=== PATIENT | male | born 1935 | race Caucasian/White ===

== ENCOUNTER 2018-02-20 10:45 | Emergency (ER) | payer MEDICARE ==
[2018-02-20] MEDS ORDERED: NA CHLORIDE 0.9% 1,000 ML ONE (11:57)
--- NOTE | 2018-02-20 12:17 | RAD REPORT ---
EXAM DESCRIPTION: RAD - Chest Single View - 02/20/2018 11:51 am CLINICAL HISTORY: COUGH Chest pain. COMPARISON: CHEST PA AND LAT 2 VIEW dated 02/06/2014; CHEST SINGLE VIEW dated 12/11/2013 FINDINGS: Portable technique limits examination quality. The lungs are grossly clear. The heart is normal in size. No displaced fractures.Dual lead pacer lisy ce noted. IMPRESSION: No acute intrathoracic process suspected.
--- NOTE | 2018-02-20 12:29 | RAD REPORT ---
EXAM DESCRIPTION: RAD - Tib Fib Left - 02/20/2018 11:51 am CLINICAL HISTORY: PAIN COMPARISON: No comparisons FINDINGS: No fracture or dislocation seen. Prominent posterior calcaneal spur.
--- NOTE | 2018-02-20 12:46 | RAD REPORT ---
EXAM DESCRIPTION: VAS - Extrem Venous W Compress Andrew - 02/20/2018 12:41 pm CLINICAL HISTORY: PAIN Bilateral leg edema and swelling. COMPARISON: EXT VENOUS UNI LTD dated 09/09/2015 TECHNIQUE: Real-time sonographic interrogation of the left and right lower extremity deep venous sys tems was performed. FINDINGS: Normal compressibility, flow augmentation, phasic flow and spontaneous flow is identified in both the left and right lower extremity deep venous systems. IMPRESSION: No sonographic evidence of left or right lower extremity deep venous thrombosis.
--- NOTE | 2018-02-20 12:46 | RAD REPORT ---
EXAM DESCRIPTION: VAS - Lower Extremity Arterial Bilat - 02/20/2018 12:41 pm CLINICAL HISTORY: PAIN Cold extremities. COMPARISON: No comparisons TECHNIQUE: Bilateral lower extremity arterial Doppler examination was performed with waveform tracin g and ankle brachial pressure measurements. FINDINGS: Symmetric brachial pressure measurements are noted. Triphasic waveforms are seen throughout both lower extremity arterial systems to the level of the samuel salis pedis arteries. No stenosis or occlusion. IMPRESSION: No evidence of significant peripheral vascular disease.
[2018-02-20 13:03] LABS: Absolute Lymphocytes (CBC) 2.7 K/uL (0.7-4.9); Absolute Monocytes 1.1 K/uL (0.1-1.3); Absolute Neutrophil 6.5 K/uL (1.8-8.0); Basophils % 0.4 % (0-1.3); Eosinophils % 2.7 % (0-4.4); Hematocrit 48.8 % (39.6-49.0); Lymphocytes % 25.5 % (15.3-44.8); MCH 29.9 pg (27.0-35.0); MCV 92.3 fL (80-100); MPV 10.4 fL (7.6-11.3); Monocytes % 10.1 % (3.3-12.3); RBC Red Blood Cell Count 5.28 M/uL (4.33-5.43)
[2018-02-20 13:10] LABS: Protime INR 1.04
[2018-02-20 13:29] LABS: ALT/SGPT 23 U/L (12-78); AST/SGOT 27 U/L (15-37); Albumin 3.9 g/dL (3.4-5.0); Alkaline Phosphatase 58 U/L (45-117); BUN Blood Urea Nitrogen 30 mg/dL (7-18); Bicarbonate 31 mmol/L (21-32); Bilirubin Direct < 0.1 mg/dL (0-0.2); Bilirubin Total 0.5 mg/dL (0.2-1.0); CKMB Creatine Kinase MB 1.9 ng/mL (0.3-3.6); Creatine Phosphokinase 101 U/L (39-308); Glucose Level 103 mg/dL (74-106); Magnesium 2.3 mg/dL (1.8-2.4); NT PRO-BNP 430 pg/mL (<450); Potassium 4.6 mmol/L (3.5-5.1); Protein, Total 8.2 g/dL (6.4-8.2); Sodium Level 136 mmol/L (136-145)
[2018-02-20 14:04] LABS: Urine Blood NEGATIVE (NEG); Urine Glucose NEGATIVE (NEG); Urine Protein TRACE (NEG); Urine pH 7.5 (5.0-7.0)
--- NOTE | 2018-02-20 14:16 | EDPHYS ---
Physician Documentation [facility] Name: Joe Holt Age: 82 yrs Sex: Male : 1935 Arrival Date: 02/20/2018 Time: 10:50 Bed 5 Private MD: ED Physician Everett Arceo HPI: 02/20 11:32 This 82 yrs old Male presents to ER via EMS with complaints of Leg Pain - alexandru left. 11:32 The patient presents with pain. The complaints affect the lateral aspect of left calf, alexandru left calf, medial aspect of left calf and left carney and left leg. Context: Problem is a result from a previous injury: No. Onset: The symptoms/episode began/occurred 5 day(s) ago. Modifying factors: The symptoms are alleviated by nothing. the symptoms are aggravated by nothing. Treatment prior to arrival includes: no previous treatment. The patient has experienced similar episodes in the past, a few times. Historical: - Allergies: 11:07 No Known Allergies; ss - PMHx: 11:07 Hypertension; ss - PSHx: 11:07 Hernia repair; pacemaker; ss - Immunization history:: Adult Immunizations up to date. - Social history:: Smoking status: Patient/guardian denies using tobacco, but has a distant history of tobacco abuse. - Ebola Screening: : No symptoms or risks identified at this time. - Family history:: not pertinent. ROS: 11:32 Constitutional: Negative for fever, chills, and weight loss, Eyes: Negative for injury, alexandru pain, redness, and discharge, ENT: Negative for injury, pain, and discharge, Neck: Negative for injury, pain, and swelling, Cardiovascular: Negative for chest pain, palpitations, and edema, Respiratory: Negative for shortness of breath, cough, wheezing, and pleuritic chest pain, Abdomen/GI: Negative for abdominal pain, nausea, vomiting, diarrhea, and constipation, Back: Negative for injury and pain, : Negative for injury, bleeding, discharge, and swelling, Skin: Negative for injury, rash, and discoloration, Neuro: Negative for headache, weakness, numbness, tingling, and seizure, Psych: Negative for depression, anxiety, suicide ideation, homicidal ideation, and hallucinations, Allergy/Immunology: Negative for hives, rash, and allergies, Endocrine: Negative for neck swelling, polydipsia, polyuria, polyphagia, and marked weight changes, Hematologic/Lymphatic: Negative for swollen nodes, abnormal bleeding, and unusual bruising. 11:32 MS/extremity: Positive for pain, of the lateral aspect of left calf, left calf, medial aspect of left calf and left carney. Exam: 11:32 Constitutional: This is a well developed, well nourished patient who is awake, alert, alexandru and in no acute distress. Head/Face: Normocephalic, atraumatic. Eyes: Pupils equal round and reactive to light, extra-ocular motions intact. Lids and lashes normal. Conjunctiva and sclera are non-icteric and not injected. Cornea within normal limits. Periorbital areas with no swelling, redness, or edema. ENT: Nares patent. No nasal discharge, no septal abnormalities noted. Tympanic membranes are normal and external auditory canals are clear. Oropharynx with no redness, swelling, or masses, exudates, or evidence of obstruction, uvula midline. Mucous membranes moist. Neck: Trachea midline, no thyromegaly or masses palpated, and no cervical lymphadenopathy. Supple, full range of motion without nuchal rigidity, or vertebral point tenderness. No Meningismus. Chest/axilla: Normal chest wall appearance and motion. Nontender with no deformity. No lesions are appreciated. Cardiovascular: Regular rate and rhythm with a normal S1 and S2. No gallops, murmurs, or rubs. Normal PMI, no JVD. No pulse deficits. Respiratory: Lungs have equal breath sounds bilaterally, clear to auscultation and percussion. No rales, rhonchi or wheezes noted. No increased work of breathing, no retractions or nasal flaring. Back: No spinal tenderness. No costovertebral tenderness. Full range of motion. Male : Normal genitalia with no discharge or lesions. Skin: Warm, dry with normal turgor. Normal color with no rashes, no lesions, and no evidence of cellulitis. Neuro: Awake and alert, GCS 15, oriented to person, place, time, and situation. Cranial nerves II-XII grossly intact. Motor strength 5/5 in all extremities. Sensory grossly intact. Cerebellar exam normal. Normal gait. Psych: Awake, alert, with orientation to person, place and time. Behavior, mood, and affect are within normal limits. 11:32 Abdomen/GI: Inspection: abdomen appears normal, distension, in the suprapubic area, Bowel sounds: normal, Palpation: mild abdominal tenderness, in the suprapubic area. Vital Signs: 11:07 BP 159 / 81; Pulse 86; Resp 16; Temp 98.1(O); Pulse Ox 98% on R/A; Weight 95.71 kg; ss Height 4 ft. 9 in. (144.78 cm); Pain 0/10; 13:10 BP 166 / 78; Pulse 74; Resp 22; Pulse Ox 100% on R/A; sv 15:12 BP 164 / 77; Pulse 61; Resp 16; Pulse Ox 100% on R/A; Pain 0/10; ss 11:07 Body Mass Index 45.66 (95.71 kg, 144.78 cm) ss MDM: 10:52 Patient medically screened. [facility] 11:38 Data reviewed: vital signs, nurses notes, lab test result(s), EKG, radiologic studies, alexandru plain films. 02/20 11:32 Order name: Basic Metabolic Panel; Complete Time: 14:14 [facility] 02/20 11:32 Order name: CBC with Diff; Complete Time: 14:14 [facility] 02/20 11:32 Order name: Ckmb; Complete Time: 14:14 [facility] 02/20 11:32 Order name: CPK; Complete Time: 14:14 [facility] 02/20 11:32 Order name: LFT's; Complete Time: 14:14 [facility] 02/20 11:32 Order name: Magnesium; Complete Time: 14:14 [facility] 02/20 11:32 Order name: NT PRO-BNP; Complete Time: 14:14 [facility] 02/20 11:32 Order name: PT-INR; Complete Time: 14:14 [facility] 02/20 11:32 Order name: Ptt, Activated; Complete Time: 14:14 [facility] 02/20 11:32 Order name: Troponin (emerg Dept Use Only); Complete Time: 14:14 [facility] 02/20 11:32 Order name: XRAY Chest (1 view); Complete Time: 14:14 [facility] 02/20 11:32 Order name: US Extremity Venous W Compression Andrew; Complete Time: 14:14 [facility] 02/20 11:32 Order name: Urine Culture [facility] 02/20 13:02 Order name: Urine Dipstick--Ancillary (enter results); Complete Time: 14:14 02/20 11:32 Order name: EKG; Complete Time: 11:33 [facility] 02/20 11:32 Order name: Cardiac monitoring; Complete Time: 13:52 [facility] 02/20 11:32 Order name: EKG - Nurse/Tech; Complete Time: 12:59 [facility] 02/20 11:32 Order name: IV Saline Lock; Complete Time: 12:59 [facility] 02/20 11:32 Order name: Labs collected and sent; Complete Time: 12:59 [facility] 02/20 11:32 Order name: O2 Per Protocol; Complete Time: 11:44 [facility] 02/20 11:32 Order name: O2 Sat Monitoring; Complete Time: 11:44 [facility] 02/20 11:32 Order name: Urine Dipstick-Ancillary (obtain specimen); Complete Time: 12:56 [facility] 02/20 11:32 Order name: Tib Fib Left XRAY; Complete Time: 14:14 [facility] 02/20 11:32 Order name: US LE Arterial Bilateral; Complete Time: 14:14 [facility] Administered Medications: 12:58 Drug: NS 0.9% 1000 ml Route: IV; Rate: 125 ml/hr; Site: right hand; sv 15:14 Follow up: IV Status: IV converted to saline lock ss Disposition: 02/20/18 14:15 Discharged to Home. Impression: Pain in left leg, Pain in left lower leg. - Condition is Stable. - Discharge Instructions: Musculoskeletal Pain. - Prescriptions for Tylenol- Codeine #3 300-30 mg Oral Tablet - take 2 tablets by ORAL route every 6 hours As needed; 24 tablet. - Medication Reconciliation Form, Thank You Letter, Antibiotic Education, Prescription Opioid Use form. - Follow up: Private Physician; When: 2 - 3 days; Reason: Recheck today's complaints, Continuance of care, Re-evaluation by your physician. - Problem is new. - Symptoms have improved. Signatures: Dispatcher [employer] Yadira Berman RN RN Everett Matthews MD MD cha Smirch, Shelby, RN RN ss Corrections: (The following items were deleted from the chart) 15:14 14:15 02/20/2018 14:15 Discharged to Home. Impression: Pain in left leg; Pain in left ss lower leg. Condition is Stable. Forms are Medication Reconciliation Form, Thank You Letter, Antibiotic Education, Prescription Opioid Use. Follow up: Private Physician; When: 2 - 3 days; Reason: Recheck today's complaints, Continuance of care, Re-evaluation by your physician. Problem is new. Symptoms have improved. alexandru
--- NOTE | 2018-02-20 14:16 | ER ---
Nurse's Notes [facility] Name: Joe Holt Age: 82 yrs Sex: Male : 1935 Arrival Date: 02/20/2018 Time: 10:50 Bed 5 Private MD: Diagnosis: Pain in left leg;Pain in left lower leg Presentation: 02/20 10:43 Presenting complaint: Patient states: L lower leg pain since November 2017. No known ss injury. Pt reports pain has just gotten increasingly worse. Transition of care: patient was not received from another setting of care. Onset of symptoms was November 2017. Risk Assessment: Do you want to hurt yourself or someone else? Patient reports no desire to harm self or others. Initial Sepsis Screen: Does the patient meet any 2 criteria? No. Patient's initial sepsis screen is negative. Does the patient have a suspected source of infection? No. Patient's initial sepsis screen is negative. Care prior to arrival: None. 10:43 Method Of Arrival: EMS: [facility] 10:43 Acuity: JUDITH 4 ss Historical: - Allergies: 11:07 No Known Allergies; ss - PMHx: 11:07 Hypertension; ss - PSHx: 11:07 Hernia repair; pacemaker; ss - Immunization history:: Adult Immunizations up to date. - Social history:: Smoking status: Patient/guardian denies using tobacco, but has a distant history of tobacco abuse. - Ebola Screening: : No symptoms or risks identified at this time. - Family history:: not pertinent. Screenin:03 Abuse screen: Denies threats or abuse. Denies injuries from another. Nutritional sv screening: No deficits noted. Tuberculosis screening: No symptoms or risk factors identified. Fall Risk None identified. Assessment: 11:01 General: Appears in no apparent distress. comfortable, well developed, Behavior is sv calm, cooperative, appropriate for age. Pain: Denies pain. Neuro: Level of Consciousness is awake, alert, obeys commands, Oriented to person, place, time, situation, Speech is normal. Cardiovascular: Patient's skin is warm and dry. Pulses are 3+ in right dorsalis pedis artery and left dorsalis pedis artery. Respiratory: Respiratory effort is even, unlabored, Respiratory pattern is regular, symmetrical. Derm: Skin is pink, warm \T\ dry. Musculoskeletal: Circulation, motion, and sensation intact. Range of motion: intact in all extremities, Reports pain in left carney and anterior aspect of left ankle but has resolved. Pt reports that it has been off and on for months. 12:50 Reassessment: Patient appears in no apparent distress at this time. No changes from sv previously documented assessment. Patient and/or family updated on plan of care and expected duration. Pain level reassessed. Patient is alert, oriented x 3, equal unlabored respirations, skin warm/dry/pink. Vital Signs: 11:07 BP 159 / 81; Pulse 86; Resp 16; Temp 98.1(O); Pulse Ox 98% on R/A; Weight 95.71 kg; ss Height 4 ft. 9 in. (144.78 cm); Pain 0/10; 13:10 BP 166 / 78; Pulse 74; Resp 22; Pulse Ox 100% on R/A; sv 15:12 BP 164 / 77; Pulse 61; Resp 16; Pulse Ox 100% on R/A; Pain 0/10; ss 11:07 Body Mass Index 45.66 (95.71 kg, 144.78 cm) ED Course: 10:50 Patient arrived in ED. sv 10:52 Everett Arceo MD is Attending Physician. alexandru 10:55 Yadira Alex, ESPERANZA is Primary Nurse. sv 11:03 Awaiting ED provider evaluation. sv 11:03 Patient has correct armband on for positive identification. Bed in low position. Call sv light in reach. Side rails up X2. Pulse ox on. NIBP on. Door closed. Head of bed lowered. 11:05 Triage completed. ss 11:07 Arm band placed on right wrist. ss 11:44 Radiology exam delayed due to IV insertion attempt and/or patient not having aa4 appropriate IV at this time. 11:48 X-ray completed. Portable x-ray completed in exam room. Patient tolerated procedure jb2 well. 11:49 XRAY Chest (1 view) In Process Unspecified. EDMS 11:49 Tib Fib Left XRAY In Process Unspecified. EDMS 11:55 Missed attempt(s): 22 gauge in right forearm. jp3 12:06 Missed attempt(s): 24 gauge in right forearm. jb1 12:41 US Extremity Venous W Compression Andrew In Process Unspecified. EDMS 12:41 US LE Arterial Bilateral In Process Unspecified. EDMS 12:49 EKG done, by field artillery targeting technician. reviewed by Everett Arceo MD. at1 12:50 Initial lab(s) drawn, by de, sent to lab. Inserted saline lock: 22 gauge in right hand, sv using aseptic technique. Blood collected. Flushed right hand with 5 ml normal saline. 12:50 Urine collected: clean catch specimen, clear. sv 15:12 No provider procedures requiring assistance completed. IV discontinued, intact, ss bleeding controlled, No redness/swelling at site. Pressure dressing applied. Administered Medications: 12:58 Drug: NS 0.9% 1000 ml Route: IV; Rate: 125 ml/hr; Site: right hand; sv 15:14 Follow up: IV Status: IV converted to saline lock Outcome: 14:15 Discharge ordered by . [facility] 15:12 Discharged to home via wheelchair, with family. ss 15:12 Condition: good 15:12 Discharge instructions given to patient, Instructed on discharge instructions, follow up and referral plans. medication usage, Demonstrated understanding of instructions, follow-up care, medications, Prescriptions given X 1. 15:14 Patient left the ED. ss Signatures: Dispatcher [employer] EDWY Fadi Norman1 Yadira Alex, RN RN Everett Matthews MD MD cha Buechter, Jesse jb2 Annette Babin aa4 Olga Evans RN RN Annette kern, sports information director EKG Tat1 Amilcar Dominguez jp3
--- NOTE | 2018-02-20 15:28 | EKG ---
Test Date: 2018-02-20 Test Time: 12:46:36 Drawing Kiln Supervisor: EDISON MEASUREMENT RESULTS: Intervals: Rate: 60 VA: 300 QRSD: 182 QT: 508 QTc: 508 Watson: P: 21 VA: 300 QRS: -84 T: 93 INTERPRETIVE STATEMENTS: Atrial-sensed ventricular-paced rhythm with prolonged AV conduction Abnormal ECG Compared to ECG 02/20/2014 12:50:17 Sinus bradycardia no longer present Junctional rhythm no longer present AV dissociation no longer present The previous ECG had pacemaker failure to capture and sense, which is now resolved Electronically Signed On 02-20-18 15:27:36 CDT by Bhargav Simpson
[2018-02-20 15:29] VITALS: TEMP 98.1
[2018-02-20 15:30] VITALS: O2SAT 100
[2018-02-20 15:31] VITALS: BP 164/77
== END 2018-02-20 15:14 | disposition home or self-care (01) ==
LOC: ER 10:45
DX: M79.662 Pain in left lower leg (principal); I10 Essential (primary) hypertension; Z95.0 Presence of cardiac pacemaker
CPT/HCPCS: 36415; 71045; 73590; 80048; 80076; 81003; 82550; 82553; 83735; 83880; 84484; 85025; 85610; 85730; 87086; 87088; 93005; 93925; 93970; J7030; 96360; 96361; 99284

== ENCOUNTER 2019-05-10 13:37 | Emergency (ER) | payer OTHER ==
--- OUTSIDE RECORDS SUMMARY | 2019-05-10 13:39 | XMS REPORT ---
:1935 [facility] [address] [place] [address] Care Team Providers Name Role Phone Unavailable Unavailable Unavailable Problems This patient has no known problems. Allergies, Adverse Reactions, Alerts This patient has no known allergies or adverse reactions. Medications This patient has no known medications.
[2019-05-10 15:56] LABS: Urine Blood NEGATIVE (NEG); Urine Glucose NEGATIVE (NEG); Urine Protein NEGATIVE (NEG); Urine Specific Gravity 1.015 (1.005-1.030); Urine pH 5.5 (5.0-7.0)
[2019-05-10 15:58] LABS: Absolute Lymphocytes (CBC) 3.3 K/uL (0.7-4.9); Basophils % 0.7 % (0-1.3); Hematocrit 47.2 % (39.6-49.0); Lymphocytes % 26.8 % (15.3-44.8); MPV 11.5 fL (7.6-11.3); RBC Red Blood Cell Count 4.94 M/uL (4.33-5.43)
[2019-05-10 16:08] LABS: Protime INR 1.02
[2019-05-10 16:21] LABS: ALT/SGPT 23 U/L (12-78); AST/SGOT 26 U/L (15-37); Albumin 4.1 g/dL (3.4-5.0); Alkaline Phosphatase 60 U/L (45-117); BUN Blood Urea Nitrogen 28 mg/dL (7-18); Bicarbonate 25 mmol/L (21-32); Bilirubin Direct 0.1 mg/dL (0-0.2); Bilirubin Total 0.5 mg/dL (0.2-1.0); Glucose Level 97 mg/dL (74-106); Lipase 107 U/L (73-393); Magnesium 2.2 mg/dL (1.8-2.4); NT PRO-BNP 523 pg/mL (<450); Potassium 4.4 mmol/L (3.5-5.1); Protein, Total 8.5 g/dL (6.4-8.2); Sodium Level 138 mmol/L (136-145); Troponin (Emerg Dept Use Only) < 0.02 ng/mL (0.0-0.045)
--- NOTE | 2019-05-10 16:44 | RAD REPORT ---
EXAM DESCRIPTION: Abdifatah Single View05/10/2019 3:03 pm CLINICAL HISTORY: Congestion COMPARISON: 2018 FINDINGS: The lungs appear clear of acute infiltrate. The heart is mildly enlarged. Pacemaker leads are in place. IMPRESSION: No acute abnormalities displayed
--- NOTE | 2019-05-10 17:10 | RAD REPORT ---
EXAM DESCRIPTION: CT - Head Brain Wo Cont - 05/10/2019 5:02 pm CLINICAL HISTORY: Alteration of awareness/confusion COMPARISON: None TECHNIQUE: Computed axial tomography of the head was obtained. IV contrast was not requested. All CT scans are performed using dose optimization technique as appropriate and may include automated exposure control or mA/KV adjustment according to patient size. FINDINGS: An intracranial bleed is not seen . The ventricles are normal in caliber. No extra-axial fluid collection is noted. Fluid within the sinuses/ mastoids is not seen. IMPRESSION: No acute intracranial abnormality is seen. If patient's symptoms persist MRI of the bra in would be recommended.
--- NOTE | 2019-05-10 17:26 | EDPHYS ---
Physician Documentation [facility] Name: Joe Holt Age: 84 yrs Sex: Male : 1935 Arrival Date: 05/10/2019 Time: 13:39 Bed 17 Private MD: ED Physician Kady Bianchi HPI: 05/10 17:08 This 84 yrs old Male presents to ER via EMS with complaints of Dizziness. ma2 17:08 The patient presents with lightheadedness. Onset: The symptoms/episode began/occurred ma2 suddenly, 3 month(s) ago. Associated signs and symptoms: Pertinent negatives: abdominal pain, agitation, combativeness, diaphoresis, focal weakness, head injury, near-syncope, numbness, palpitations, seizure. Severity of symptoms: At their worst the symptoms were very mild in the emergency department the symptoms have resolved. The patient has experienced similar episodes in the past, several times. here for lightheadedness that happened 3 days ago and resolved, did not happen during last 2 days, he has been having them for the last 3 months, no symptoms at this time extensive system enquiry is negative . Historical: - Allergies: 13:47 PENICILLINS; ca1 - Home Meds: 13:47 amlodipine oral [Active]; ca1 - PMHx: 13:47 Hypertension; ca1 - PSHx: 13:47 Hernia repair; pacemaker; Cataracts; ca1 - Immunization history:: Adult Immunizations up to date. - Social history:: Smoking status: Patient/guardian denies using tobacco, Patient/guardian denies using alcohol, street drugs, The patient lives with family. - Ebola Screening: : Patient negative for fever greater than or equal to 101.5 degrees Fahrenheit, and additional compatible Ebola Virus Disease symptoms Patient denies exposure to infectious person Patient denies travel to an Ebola-affected area in the 21 days before illness onset No symptoms or risks identified at this time. - Family history:: not pertinent. ROS: 17:08 Constitutional: Negative for fever, chills, and weight loss. ma2 17:08 All other systems are negative. Exam: 17:08 Constitutional: This is a well developed, well nourished patient who is awake, alert, ma2 and in no acute distress. Head/Face: Normocephalic, atraumatic. Eyes: Pupils equal round and reactive to light, extra-ocular motions intact. Lids and lashes normal. Conjunctiva and sclera are non-icteric and not injected. Cornea within normal limits. Periorbital areas with no swelling, redness, or edema. ENT: Nares patent. No nasal discharge, no septal abnormalities noted. Tympanic membranes are normal and external auditory canals are clear. Oropharynx with no redness, swelling, or masses, exudates, or evidence of obstruction, uvula midline. Mucous membranes moist. Neck: Trachea midline, no thyromegaly or masses palpated, and no cervical lymphadenopathy. Supple, full range of motion without nuchal rigidity, or vertebral point tenderness. No Meningismus. Chest/axilla: Normal chest wall appearance and motion. Nontender with no deformity. No lesions are appreciated. Cardiovascular: Regular rate and rhythm with a normal S1 and S2. No gallops, murmurs, or rubs. Normal PMI, no JVD. No pulse deficits. Respiratory: Lungs have equal breath sounds bilaterally, clear to auscultation and percussion. No rales, rhonchi or wheezes noted. No increased work of breathing, no retractions or nasal flaring. Abdomen/GI: Soft, non-tender, with normal bowel sounds. No distension or tympany. No guarding or rebound. No evidence of tenderness throughout. Back: No spinal tenderness. No costovertebral tenderness. Full range of motion. Skin: Warm, dry with normal turgor. Normal color with no rashes, no lesions, and no evidence of cellulitis. MS/ Extremity: Pulses equal, no cyanosis. Neurovascular intact. Full, normal range of motion. Neuro: Awake and alert, GCS 15, oriented to person, place, time, and situation. Cranial nerves II-XII grossly intact. Motor strength 5/5 in all extremities. Sensory grossly intact. Cerebellar exam normal. Normal gait. Vital Signs: 13:47 BP 157 / 75; Pulse 64; Resp 12; Temp 98.5(O); Pulse Ox 100% on R/A; Weight 92.53 kg ca1 (R); Height 4 ft. 9 in. (144.78 cm) (R); Pain 0/10; 14:50 BP 151 / 75; Pulse 61; Resp 21 S; Pulse Ox 98% on R/A; ca1 15:54 BP 155 / 78; Pulse 66; Resp 19 S; Pulse Ox 95% on R/A; ca1 18:23 BP 146 / 73; Pulse 67; Resp 19 S; Temp 98.1(O); Pulse Ox 100% on R/A; ca1 13:47 Body Mass Index 44.14 (92.53 kg, 144.78 cm) ca1 MDM: 14:16 Patient medically screened. ma2 17:08 Differential diagnosis: head injury, hyperventilation, hypovolemia. Data reviewed: [facility] vital signs, nurses notes. Counseling: I had a detailed discussion with the patient and/or guardian regarding: the historical points, exam findings, and any diagnostic results supporting the discharge/admit diagnosis, the presence of at least one elevated blood pressure reading (>120/80) during this emergency department visit, the need for outpatient follow up. Response to treatment: There is no appreciated change of the patient's symptoms at this time. 05/10 14:43 Order name: Basic Metabolic Panel; Complete Time: 16:29 [facility] 05/10 14:43 Order name: CBC with Diff; Complete Time: 16:29 [facility] 05/10 14:43 Order name: LFT's; Complete Time: 16:29 [facility] 05/10 14:43 Order name: Magnesium; Complete Time: 16:29 [facility] 05/10 14:43 Order name: NT PRO-BNP; Complete Time: 16:29 nc2 05/10 14:43 Order name: PT-INR; Complete Time: 16:29 [facility] 05/10 14:43 Order name: Troponin (emerg Dept Use Only); Complete Time: 16:29 [facility] 05/10 14:43 Order name: XRAY Chest (1 view); Complete Time: 17:23 [facility] 05/10 14:43 Order name: EKG; Complete Time: 14:44 [facility] 05/10 14:43 Order name: Cardiac monitoring; Complete Time: 15:40 nc2 05/10 14:43 Order name: Lipase; Complete Time: 16:29 nc2 05/10 14:43 Order name: Blood Culture Adult (2) nc2 05/10 15:53 Order name: Urine Dipstick--Ancillary (enter results); Complete Time: 16:29 05/10 16:30 Order name: CT Head Brain wo Cont; Complete Time: 17:23 ma2 05/10 14:43 Order name: EKG - Nurse/Tech; Complete Time: 15:40 [facility] 05/10 14:43 Order name: IV Saline Lock; Complete Time: 15:40 [facility] 05/10 14:43 Order name: Labs collected and sent; Complete Time: 15:40 [facility] 05/10 14:43 Order name: O2 Per Protocol; Complete Time: 15:40 [facility] 05/10 14:43 Order name: O2 Sat Monitoring; Complete Time: 15:40 [facility] 05/10 14:43 Order name: Urine Dipstick-Ancillary (obtain specimen); Complete Time: 15:52 ma2 Administered Medications: No medications were administered Disposition: 05/10/19 17:25 Discharged to Home. Impression: Dizziness and giddiness. - Condition is Stable. - Discharge Instructions: Dizziness. - Medication Reconciliation Form, Thank You Letter, Antibiotic Education, Prescription Opioid Use form. - Follow up: Private Physician; When: Tomorrow; Reason: Continuance of care. Signatures: Dispatcher [employer] EDMS Kady Bianchi MD MD ma2 Andie Doran RN RN ca1 Corrections: (The following items were deleted from the chart) 18:25 17:25 05/10/2019 17:25 Discharged to Home. Impression: Dizziness and giddiness. ca1 Condition is Stable. Forms are Medication Reconciliation Form, Thank You Letter, Antibiotic Education, Prescription Opioid Use. Follow up: Private Physician; When: Tomorrow; Reason: Continuance of care. ma2
--- NOTE | 2019-05-10 17:26 | ER ---
Nurse's Notes [facility] Name: Joe Holt Age: 84 yrs Sex: Male : 1935 Arrival Date: 05/10/2019 Time: 13:39 Bed 17 Private MD: Diagnosis: Dizziness and giddiness Presentation: 05/10 13:39 Presenting complaint: EMS states: pt has a home health nurse and says the pt is not ca1 acting normal today and appears confused. Pt BP is slightly elevated from normal of SBP 140 to SBP 158. Pt's c/o dizziness. Transition of care: patient was received from another setting of care (home health care). Onset of symptoms was May 10, 2019. Risk Assessment: Do you want to hurt yourself or someone else? Patient reports no desire to harm self or others. Initial Sepsis Screen: Does the patient meet any 2 criteria? No. Patient's initial sepsis screen is negative. Does the patient have a suspected source of infection? No. Patient's initial sepsis screen is negative. Care prior to arrival: None. 13:39 Method Of Arrival: EMS: [facility] ca1 13:39 Acuity: JUDITH 3 ca1 Historical: - Allergies: 13:47 PENICILLINS; ca1 - Home Meds: 13:47 amlodipine oral [Active]; ca1 - PMHx: 13:47 Hypertension; ca1 - PSHx: 13:47 Hernia repair; pacemaker; Cataracts; ca1 - Immunization history:: Adult Immunizations up to date. - Social history:: Smoking status: Patient/guardian denies using tobacco, Patient/guardian denies using alcohol, street drugs, The patient lives with family. - Ebola Screening: : Patient negative for fever greater than or equal to 101.5 degrees Fahrenheit, and additional compatible Ebola Virus Disease symptoms Patient denies exposure to infectious person Patient denies travel to an Ebola-affected area in the 21 days before illness onset No symptoms or risks identified at this time. - Family history:: not pertinent. Screenin:50 Abuse screen: Denies threats or abuse. Denies injuries from another. Nutritional ca1 screening: No deficits noted. Tuberculosis screening: No symptoms or risk factors identified. VAN Screening: Arm Drift: Patient shows no arm weakness. Patient is VAN negative. Visual Disturbance: No visual disturbance noted. Aphasia: No aphasia noted. Neglect: No neglect noted. Fall Risk IV access (20 points). Ambulatory Aid- Crutches/Cane/Walker (15 pts). Total Rahman Fall Scale indicates Low Risk Score (25-44 pts). Fall prevention measures have been instituted. Side Rails Up X 2 Frequent Obs/Assesments occuring Family Present and informed to notify staff if they need to leave bedside As available Patient and Family Educated on Fall Prevention Program and strategies. Assessment: 13:50 General: Appears in no apparent distress. comfortable, Behavior is calm, cooperative, ca1 appropriate for age. Pain: Denies pain. 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 Speech is normal, Facial symmetry appears normal, Reports dizziness, since this morning. Cardiovascular: Heart tones S1 S2 present Capillary refill < 3 seconds Patient's skin is warm and dry. Pulses Rhythm is Respiratory: Airway is patent Respiratory effort is even, unlabored, Respiratory pattern is regular, symmetrical, Breath sounds are clear bilaterally. GI: Abdomen is round non-distended, Bowel sounds present X 4 quads. Abd is soft and non tender X 4 quads. : No deficits noted. No signs and/or symptoms were reported regarding the genitourinary system. EENT: Ears has hearing aids on R and L ears. Derm: Skin is intact, is healthy with good turgor, Skin is pink, warm \T\ dry. Musculoskeletal: Circulation, motion, and sensation intact. Capillary refill < 3 seconds, Range of motion: intact in all extremities. 14:50 Reassessment: Patient appears in no apparent distress at this time. Patient and/or ca1 family updated on plan of care and expected duration. Pain level reassessed. Patient is alert, oriented x 3, equal unlabored respirations, skin warm/dry/pink. 15:52 Reassessment: Patient appears in no apparent distress at this time. Patient and/or ca1 family updated on plan of care and expected duration. Pain level reassessed. Patient is alert, oriented x 3, equal unlabored respirations, skin warm/dry/pink. 16:55 Reassessment: Patient appears in no apparent distress at this time. Patient and/or ca1 family updated on plan of care and expected duration. Pain level reassessed. Patient is alert, oriented x 3, equal unlabored respirations, skin warm/dry/pink. 18:23 Reassessment: Patient appears in no apparent distress at this time. Patient and/or ca1 family updated on plan of care and expected duration. Pain level reassessed. Patient is alert, oriented x 3, equal unlabored respirations, skin warm/dry/pink. Vital Signs: 13:47 BP 157 / 75; Pulse 64; Resp 12; Temp 98.5(O); Pulse Ox 100% on R/A; Weight 92.53 kg ca1 (R); Height 4 ft. 9 in. (144.78 cm) (R); Pain 0/10; 14:50 BP 151 / 75; Pulse 61; Resp 21 S; Pulse Ox 98% on R/A; ca1 15:54 BP 155 / 78; Pulse 66; Resp 19 S; Pulse Ox 95% on R/A; ca1 18:23 BP 146 / 73; Pulse 67; Resp 19 S; Temp 98.1(O); Pulse Ox 100% on R/A; ca1 13:47 Body Mass Index 44.14 (92.53 kg, 144.78 cm) ca1 ED Course: 13:39 Patient arrived in ED. ca1 13:42 Triage completed. ca1 13:47 Arm band placed on right wrist. ca1 13:50 Patient has correct armband on for positive identification. Placed in gown. Bed in low ca1 position. Call light in reach. Side rails up X2. desk monitor on. Pulse ox on. NIBP on. Warm blanket given. 13:50 No provider procedures requiring assistance completed. ca1 14:16 Kady Bianchi MD is Attending Physician. ma2 14:39 Andie Doran, ESPERANZA is Primary Nurse. ca1 15:03 XRAY Chest (1 view) In Process Unspecified. EDMS 15:46 Inserted saline lock: 22 gauge in right antecubital area, using aseptic technique. ss Blood collected. 15:54 IV discontinued, intact, bleeding controlled, No redness/swelling at site. Pressure ca1 dressing applied. 17:03 CT Head Brain wo Cont In Process Unspecified. EDMS Administered Medications: No medications were administered Outcome: 17:25 Discharge ordered by . ma2 18:24 Discharged to home via wheelchair, with family. ca1 18:24 Condition: stable 18:24 Discharge instructions given to patient, family, Instructed on discharge instructions, follow up and referral plans. Demonstrated understanding of instructions, follow-up care. 18:25 Patient left the ED. ca1 Signatures: Dispatcher [employer] EDMS Olga Evans RN RN Kady Bianhci MD MD ma2 Andie Doran RN RN ca1 Corrections: (The following items were deleted from the chart) 16:39 15:52 Reassessment: Patient is alert, oriented x 3, equal unlabored respirations, skin ca1 warm/dry/pink. ca1 16:39 15:52 Respiratory: Airway is patent Respiratory effort is even, labored, Respiratory ca1 pattern is regular, symmetrical, Breath sounds with wheezes in right upper lobe, right middle lobe and left posterior upper lobe ca1 16:39 15:52 Reassessment: Notified provider. Orders given ca1 ca1 16:40 15:54 BP 125 / 65; Pulse 107bpm; Resp 26bpm; Spontaneous; Pulse Ox 95% 2 lpm Nasal ca1 Cannula; ca1 16:40 14:50 BP 131 / 51; Pulse 99bpm; Resp 21bpm; Spontaneous; Pulse Ox 98% 2 lpm; ca1 ca1 18:25 15:54 Patient admitted, IV remains in place. ca1 ca1
[2019-05-10 19:10] VITALS: BP 146/73; TEMP 98.1; O2SAT 100
--- NOTE | 2019-05-11 07:41 | EKG ---
Test Date: 2019-05-10 Test Time: 14:11:29 Motor Assembly Supervisor: HEATHER MEASUREMENT RESULTS: Intervals: Rate: 61 MS: 312 QRSD: 172 QT: 504 QTc: 507 [place]: P: -1 MS: 312 QRS: -82 T: 80 INTERPRETIVE STATEMENTS: Electronic ventricular pacemaker Compared to ECG 02/20/2018 12:46:36 Atrial-sensed ventricular-paced complex(es) or rhythm no longer present Electronically Signed On 05-11-19 07:38:12 CDT by Giacomo Craft
== END 2019-05-10 18:25 | disposition home or self-care (01) ==
LOC: ER 13:37
DX: R42 Dizziness and giddiness (principal); I10 Essential (primary) hypertension; Z88.0 Allergy status to penicillin
CPT/HCPCS: 36415; 70450; 71045; 80048; 80076; 81003; 83690; 83735; 83880; 84484; 85025; 85610; 87040; 93005; 99284

== ENCOUNTER 2019-12-24 03:18 | Observation (INO) | payer OTHER ==
--- OUTSIDE RECORDS SUMMARY | 2019-12-24 03:21 | XMS REPORT ---
:[address] [facility] t Address [address] [place] [address] Care Team Providers Name Role Phone Unavailable Unavailable Unavailable Problems This patient has no known problems. Allergies, Adverse Reactions, Alerts This patient has no known allergies or adverse reactions. Medications This patient has no known medications.
--- OUTSIDE RECORDS SUMMARY | 2019-12-24 03:21 | XMS REPORT | Summary of Care ---
:1935 Author Organization [facility] - Health Address [address] [place] [address] Care Team Providers Name Role Phone Anoop Joy Primary Care Provider Encounter Details Date Type Department Care Team Description 10/23/2019 Orders Only [facility] Doctor Unassigned, No [address] [facility] [place] [address] [address] [place] [address] Allergies Not on Filedocumented as of this encounter (statuses as of 10/23/2019) Medications Not on filedocumented as of this encounter (statuses as of 10/23/2019) Active Problems Not on filedocumented as of this encounter (statuses as of 10/23/2019) Social History Tobacco Use Types Packs/Day Years Used Date Never Assessed Sex Assigned at Date Recorded Not on file Job Start Date Occupation Industry Not on file Not on file Not on file Travel History Travel Start Travel End No recent travel history available. documented as of this encounter Last Filed Vital Signs Not on filedocumented in this encounter Plan of Treatment Date Type Specialty Care Team Description 10/23/2019 Office Visit Neurology [place] Pepe MD Arrived [address] [place] [address]. 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
--- OUTSIDE RECORDS SUMMARY | 2019-12-24 03:21 | XMS REPORT | Summary of Care ---
:1935 Author Organization [facility] - Health Address [address] [place] [address] Care Team Providers Name Role Phone Joy Davalos Primary Care Provider Encounter Details Date Type Department Care Team Description 10/08/2019 Orders Only [facility] Doctor Unassigned, No [address] [facility] [place] [address] [address] [place] [address] Allergies Not on Filedocumented as of this encounter (statuses as of 10/10/2019) Medications Not on filedocumented as of this encounter (statuses as of 10/10/2019) Active Problems Not on filedocumented as of this encounter (statuses as of 10/10/2019) Social History Tobacco Use Types Packs/Day Years Used Date Never Assessed Sex Assigned at Date Recorded Not on file Job Start Date Occupation Industry Not on file Not on file Not on file Travel History Travel Start Travel End No recent travel history available. 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
--- OUTSIDE RECORDS SUMMARY | 2019-12-24 03:21 | XMS REPORT | Summary of Care ---
:1935 Author Organization [facility] - [facility] Address [address] [place] [address] Care Team Providers Name Role Phone Anoop Joy Primary Care Provider Reason for Referral (Routine) Status Reason Specialty Diagnoses / Referred By Contact Refe rred To Procedures Contact New Request Cardiology Diagnoses Slurred speech TIA (transient ischemic attack) Warren Pepe Procedures ECHO ROUTINE W/DOPPLER COLOR Preferred Location: [facility] MD Genaro [address] [place] [phone] Phone: (Routine) Status Reason Specialty Diagnoses / Referred By Contact Refe rred To Procedures Contact New Request Diagnoses Slurred speech CVD (cardiovascular disease) TIA (transient ischemic attack) Warren Pepe Procedures CAROTID DUPLEX BILATERAL BY VASCULAR LAB MD Genaro [address] [place] [phone] Phone: (Routine) Status Reason Specialty Diagnoses / Referred By Contact Refe rred To Procedures Contact New Request Cardiology Diagnoses Slurred speech CVD (cardiovascular disease) TIA (transient ischemic attack) Warren Pepe Procedures ECHO ROUTINE W/DOPPLER COLOR Preferred Location: [facility] MD Genaro [address] [place] [phone] Phone: (Routine) Status Reason Specialty Diagnoses / Referred By Contact Refe rred To Procedures Contact New Request EEG Diagnoses Slurred speech CVD (cardiovascular disease) TIA (transient ischemic attack) Warren Pepe Procedures Electroencephalogram (EEG) - Duration of test: 20-60 mins MD Genaro [address] [place], [place] [address] [address] Phone: Reason for Visit Reason Comments Follow-up (Routine) Status Reason Specialty Diagnoses / Procedures Referred By Joy ontact Referred To Contact Closed Neurology Diagnoses Disorientation, unspecified Slurring of speech Way, Gill Procedures CONSULT/REFERRAL NEUROLOGY [address] [facility] [address] [place], [place] [phone] Phone: Encounter Details Date Type Department Care Team Description 10/23/2019 Office Visit [facility] Warren Pepe Slthom spee (Primary Dx); Neurology-Ginny Lam MD CVD (cardiovascular disease); [address] [place] [address] [address] TIA (transient ischemic attack) Drive, [address] [place] [phone] Allergies No Known Allergiesdocumented as of this encounter (statuses as of 10/25/2019) Medications Medication Sig Dispensed Refills Start Date End Date Status amLODIPine 5 mg tablet Take 5 mg by 0 Active mouth daily. tamsulosin 0.4 mg 24 hr Take by mouth 0 Active capsule daily. atorvastatin 40 mg Take 40 mg by 0 Active tablet mouth daily. documented as of this encounter (statuses as of 10/25/2019) Active Problems Not on filedocumented as of this encounter (statuses as of 10/25/2019) Social History Tobacco Use Types Packs/Day Years Used Date Former Smoker Quit: 1965 Alcohol Use Drinks/Week oz/Week Comments Not Currently Sex Assigned at Date Recorded Not on file Job Start Date Occupation Industry Not on file Not on file Not on file Travel History Travel Start Travel End No recent travel history available. documented as of this encounter Last Filed Vital Signs Vital Sign Reading Time Taken Comments Blood Pressure 122/70 10/23/2019 1:50 PM EYELET CUTTER Pulse 85 10/23/2019 1:50 PM EYELET CUTTER Temperature 36.2 C (97.1 F) 10/23/2019 1:50 PM EYELET CUTTER Respiratory Rate 18 10/23/2019 1:50 PM EYELET CUTTER Oxygen Saturation - - Inhaled Oxygen Concentration - - Weight 91.7 kg (202 lb 4 oz) 10/23/2019 1:50 PM EYELET CUTTER Height 142.2 cm (4' 8") 10/23/2019 1:50 PM EYELET CUTTER Body Mass Index 45.34 10/23/2019 1:50 PM EYELET CUTTER documented in this encounter Progress Notes Warren Pepe MD - 10/23/2019 1:00 PM CST I have verified the medical student documentation and/or findings, including the history, physical exam, and medical decision making for the patient Joe Holt on 10/23/2019. Additionally, I have personally performed or re- performed the physical and neurological exam and medical decision making activities of this patient's evaluation and management service. Warren Pepe MD Curing Room Worker Neurology HISTORY OF PRESENT ILLNESS: Joe Holt is a 84 year old right handed male with history of HTN, HLD, Stage III CKD, andBPH who presents to clinic for evaluation of stroke like symptoms. Patient reports having slurred speech and disorientation about a month ago. Patient's condition improved over the next three days. However patient's speech is not 100% back to his baseline per . Patient denies any facial drooping, numbness/tingling, or weakness. Patient subsequently had a CT head which did not show any abnormalities. PMH: has a past medical history of Benign prostatic hyperplasia, Chronic kidney disease, Hyperlipidemia,and Hypertension. Current Outpatient Medications: amLODIPine 5 mg tablet, Take 5 mg by mouth daily., Disp: , Rfl: atorvastatin 40 mg tablet, Take 40 mg by mouth daily., Disp: , Rfl: tamsulosin 0.4 mg 24 hr capsule, Take by mouth daily., Disp: , Rfl: History reviewed. No pertinent family history. Past Surgical History: Procedure Laterality Date HERNIA REPAIR 2000 PACEMAKERS INSERTION 2014 Social History Socioeconomic History Marital status: Single Spouse name: Not on file Number of children: Not on file Years of education: Not on file Highest education level: Not on file Occupational History Not on file Social Needs Financial resource strain: Not on file Food insecurity: Worry: Not on file Inability: Not on file Transportation needs: Medical: Not on file Non-medical: Not on file Tobacco Use Smoking status: Former Smoker Last attempt to quit: 1965 Years since quittin.1 Substance and Sexual Activity Alcohol use: Not Currently Drug use: Never Sexual activity: Not on file Lifestyle Physical activity: Days per week: Not on file Minutes per session: Not on file Stress: Not on file Relationships Social connections: Talks on phone: Not on file Gets together: Not on file Attends denominational service: Not on file Active member of club or organization: Not on file Attends meetings of clubs or organizations: Not on file Relationship status: Not on file Intimate partner violence: Fear of current or ex partner: Not on file Emotionally abused: Not on file Physically abused: Not on file Forced sexual activity: Not on file Other Topics Concern Not on file Social History Narrative Not on file Vital signs: BP 122/70 | Pulse 85 | Temp 36.2 C (97.1 F) (Oral) | Resp 18 | Ht 4' 8" (1.422 m) | Wt 202 lb 4 oz (91.7 kg) | BMI 45.34 kg/m Mental Status: well-kept and appears stated age, alert and oriented times three, cooperative during the exam, attention and concentration normal, law office receptionist and expression intact, fund of information normal, recent and remote memory intact, affect/mood normal and relaxed. Could not appreciate any Cranial nerves (vision, eye movement): EOM intact, equal reactive pupils, accommodation reflex present, full visual bal. Cranial nerves (face): normal mastication, facial sensation normal, facial motor normal, corneal reflex not done. Cranial nerves (taste, smell): taste intact by history, smell intact by history. Cranial nerve (hearing): normal conversational hearing, finger rub WNL. Cranial nerve (accessory): normal r/l sternomastoid bulk/tone/power. Shoulder shrug right and left normal. Cranial nerve (tongue): tongue bulk normal, tongue midline, palate centered. Peripheral motor: Arms: Strength, tone, power normal bilaterally. Legs: Strength, tone, power normal bilaterally. Reflexes: Arms: Triceps, biceps, brachioradialis 2+ and symmetrical Legs: Patelllar, ankle jerks 2 + and symmetrical. Toes downgoing bilaterally. Peripheral sensation: Arms: light touch intact, primary sharp touch normal, vibration symmetrical, proprioception normalbilaterally. Legs: light touch intact, primary sharp touch normal, vibration symmetrical, proprioception normal bilaterally. Coordination: Bilateral [id number]-wg-uhfx and finger tapping normal. Bilateral RAH motions symmetrical. Gait: gait normal, arm swing intact, romberg negative. Not able to balance on one foot or the other. HEENT: A/N, no oropharyngeal lesion present, JVD absent, thyromegaly absent, no lymphadenopathy present. Lungs: lungs clear, no wheezing, no rhonchi. Heart: CV RRR, no murmurs, carotid bruits absent. Peripheral vascular: no peripheral cyanosis, clubbing absent, no peripheral edema present, intact peripheral pulses, extremities warm to touch. Musculoskeletal: normal cervical ROM ASSESSMENT AND RECOMMENDATIONS: ICD-10-CM ICD-9-CM 1. Slurred speech R47.81 784.59 2. CVD (cardiovascular disease) I25.10 429.2 3. TIA (transient ischemic attack) G45.9 435.9 Joe Holt is a 84 year old man with history of HTN, Stage III CKD, HLD, and BPH who presents tot clinic for evaluation of recent stroke like symptoms. Patient's acute and transient presentationis suspicious of some sort of cerebral attack. MRI would have been beneficial but was contraindicated due to his pacemaker. Patient's history of CKD makes CT angiogram of head difficult. In order to investigate further, we would like to perform additional testing to find out the cause of his slurred speech. In the meantime, we recommend baby aspirin daily in order to decrease the risk of further ischemic accidents. Plan: EEG Carotid ultrasound ECHO TTE Aspirin 81mg daily Patient may F/U in the clinic after the testing is completed. If testing is unremarkable then care can be returned to the PCP. Creation of the note was aided by utilizing a cut/paste operation of text from a Microsoft Word template created with [employer]. The text was dictated into the template via Dragon Naturally Speaking. ET CUTTER documented in this encounter Plan of Treatment Date Type Specialty Care Team Description 11/06/2019 Laboratory Only Cardiology Pc, Adc Echo Room 1 - 11/06/2019 Managed Services Sales Consultant Visit Cardiology Pc, Adc Vascular Room 1 - Health Maintenance Due Date Last Done Comments DTaP,Tdap,and Td Vaccines (1 - Tdap) 1946 Zoster Recombinant Vaccine (SHINGRIX) (1 of 2) 1986 Medicare Wellness Visit 2001 PNEUMOCOCCAL VACCINES 65+ (1 of 2 - PCV13) 2001 INFLUENZA VACCINE (#1) 2019 documented as of this encounter Results Not on filedocumented in this encounter Visit Diagnoses Diagnosis Slurred speech - Primary Other speech disturbance CVD (cardiovascular disease) Unspecified cardiovascular disease TIA (transient ischemic attack) Unspecified transient cerebral ischemia documented in this encounter Insurance Payer Benefit Plan / Subscriber ID Effective Dates Phone Addre ss Type Group [facility] STAR xxxxxxxxx 2019-Present Medicaid COMM PLAN - PLUS MANAGED MEDICAID documented as of this encounter
--- OUTSIDE RECORDS SUMMARY | 2019-12-24 03:22 | XMS REPORT | Summary of Care ---
:1935 Author Organization [facility] Address [address] [place] [address] Care Team Providers Name Role Phone Anoop Joy Primary Care Provider Reason for Visit Reason Comments ULTRASOUND (Routine) Status Reason Specialty Diagnoses / Referred By Referred To Procedures Contact Contact Closed Vascular Sonography Diagnoses Slurred speech CVD (cardiovascular disease) TIA (transient ischemic attack) Warren Pepe Procedures CAROTID DUPLEX BILATERAL BY VASCULAR LAB MD Genaro [address] [place] [address]. [place] [phone] Encounter Details Date Type Department Care Team Description 11/06/2019 Cooperage Shop Supervisor Visit [facility] Jignesh Salomon MD [address] [place] [address] [address] [place] [address] Cerebrovascular accident (CVA), unspecif ied mechanism; Cardiology- Pc, Adc Vascular Room 1 - Slurred speech; [place] CVD (cardiovascular disease) ; [address] [place] [address] TIA (transie nt ischemic attack) Drive, [address] [place] [address] Allergies No Known Allergiesdocumented as of this encounter (statuses as of 11/06/2019) Medications Medication Sig Dispensed Refills Start Date End Date Status amLODIPine 5 mg tablet Take 5 mg by 0 Active mouth daily. tamsulosin 0.4 mg 24 hr Take by mouth 0 Active capsule daily. atorvastatin 40 mg Take 40 mg by 0 Active tablet mouth daily. documented as of this encounter (statuses as of 11/06/2019) Active Problems Not on filedocumented as of this encounter (statuses as of 11/06/2019) Social History Tobacco Use Types Packs/Day Years [...] Treatment Date Type Specialty Care Team Description 11/13/2019 Appointment EEG Warren Pepe MD [address] [place] [phone] Anastasia, [facility] Eeg Health Maintenance Due Date Last Done Comments DTaP,Tdap,and Td Vaccines (1 - Tdap) 1946 Zoster Recombinant Vaccine (SHINGRIX) (1 of 2) 1986 Medicare Wellness Visit 2001 PNEUMOCOCCAL VACCINES 65+ (1 of 2 - PCV13) 2001 INFLUENZA VACCINE (#1) 2019 documented as of this encounter Results Not on filedocumented in this encounter Visit Diagnoses Diagnosis Cerebrovascular accident (CVA), unspecif ied mechanism Slurred speech Other speech disturbance CVD (cardiovascular disease) Unspecified cardiovascular disease TIA (transient ischemic attack) Unspecified transient cerebral ischemia documented in this encounter Insurance Payer Benefit Plan / Subscriber ID Effective Dates Phone Addre ss Type Group [facility] STAR xxxxxxxxx 2019-Present Medicaid COMM PLAN - PLUS MANAGED MEDICAID BRISSA Umesh (Home) [address] [place] [address] documented as of this encounter
--- OUTSIDE RECORDS SUMMARY | 2019-12-24 03:22 | XMS REPORT | Summary of Care ---
:1935 Author Organization [address] [address] Care Team Providers Name Role Phone Joy Davalos Primary Care Provider Reason for Visit Reason Comments Notification appt with cardio. Rx Concern/Question Encounter Details Date Type Department Care Team Description 10/30/2019 Telephone [facility] Warren Pepe Notifi cation (appt Neurology-Ginny FONG with cardio.); Rx [address], [address] [place] [phone] Allergies No Known Allergiesdocumented as of this encounter (statuses as of 10/30/2019) Medications Medication Sig Dispensed Refills Start Date End Date Status amLODIPine 5 mg tablet Take 5 mg by 0 Active mouth daily. tamsulosin 0.4 mg 24 hr Take by mouth 0 Active capsule daily. atorvastatin 40 mg Take 40 mg by 0 Active tablet mouth daily. documented as of this encounter (statuses as of 10/30/2019) Active Problems Not on filedocumented as of this encounter (statuses as of 10/30/2019) Social History Tobacco Use Types Packs/Day Years [...] Pc, Adc Echo Room 1 - 11/06/2019 Child Protective Investigator Visit Cardiology Pc, Adc Vascular Room 1 [...] Effective Phone Address T ype Group Dates [facility] MEDICARE [id number] 2018-Pres Fe eddy Adv HEALTHCARE - COMPLETE ent HMO MANAGED MEDICARE [employer] [place] STAR xxxxxxxxx 2019-Prese Medicaid HEALTHCARE COMM PLUS nt PLAN - MANAGED MEDICAID documented as of this encounter
--- OUTSIDE RECORDS SUMMARY | 2019-12-24 03:22 | XMS REPORT | Summary of Care ---
:1935 Author Organization [facility] - [facility] Address [address] [place] [address] Care Team Providers Name Role Phone Anoop Joy Primary Care Provider Reason for Referral (Routine) Status Reason Specialty Diagnoses / Referred By Contact Refe rred To Procedures Contact New Request Cardiology Diagnoses Slurred speech TIA (transient ischemic attack) Warren Pepe Procedures ECHO ROUTINE W/DOPPLER COLOR Preferred Location: [facility] MD Genaro [address] [place] [phone] Phone: (Routine) Status Reason Specialty Diagnoses / Referred By Contact Refe rred To Procedures Contact New Request Diagnoses Slurred speech CVD (cardiovascular disease) TIA (transient ischemic attack) Warren Pepe Procedures CAROTID DUPLEX BILATERAL BY VASCULAR LAB MD Genaro [address] [place] [phone] Phone: (Routine) Status Reason Specialty Diagnoses / Referred By Contact Refe rred To Procedures Contact New Request Cardiology Diagnoses Slurred speech CVD (cardiovascular disease) TIA (transient ischemic attack) Warren Pepe Procedures ECHO ROUTINE W/DOPPLER COLOR Preferred Location: [facility] MD Genaro [address] [place] [phone] Phone: (Routine) Status Reason Specialty Diagnoses / Referred By Contact Refe rred To Procedures Contact New Request EEG Diagnoses Slurred speech CVD (cardiovascular disease) TIA (transient ischemic attack) Warren Pepe Procedures Electroencephalogram (EEG) - Duration of test: 20-60 mins MD Genaro [address] [place], [place] [address], [place] [address] Phone: Reason for Visit Reason Comments Follow-up (Routine) Status Reason Specialty Diagnoses / Procedures Referred By Joy ontact Referred To Contact Closed Neurology Diagnoses Disorientation, unspecified Slurring of speech Way, Gill Procedures CONSULT/REFERRAL NEUROLOGY [address] [facility] [address] [place], [place] [address] Phone: Encounter Details Date Type Department Care Team Description 10/23/2019 Office Visit [facility] Warren Pepe Slthom spee (Primary Dx); Neurology-Ginny Lam MD CVD (cardiovascular disease); [address] [place] [address] TIA (transient ischemic attack) Drive, [address] [place] [phone] Allergies No Known Allergiesdocumented [...] Comments Blood Pressure 122/70 10/23/2019 1:50 PM OCULAR CARE AIDE Pulse 85 10/23/2019 1:50 PM OCULAR CARE AIDE Temperature 36.2 C (97.1 F) 10/23/2019 1:50 PM OCULAR CARE AIDE Respiratory Rate 18 10/23/2019 1:50 PM OCULAR CARE AIDE Oxygen Saturation - - Inhaled Oxygen Concentration - - Weight 91.7 kg (202 lb 4 oz) 10/23/2019 1:50 PM OCULAR CARE AIDE Height 142.2 cm (4' 8") 10/23/2019 1:50 PM OCULAR CARE AIDE Body Mass Index 45.34 10/23/2019 1:50 PM OCULAR CARE AIDE documented in this encounter Progress Notes Warren [...] evaluation and management service. Warren Pepe MD Financial Data Analyst Neurology HISTORY OF PRESENT ILLNESS: Joe Holt [...] file Gets together: Not on file Attends mormonism service: Not on file Active member of [...] during the exam, attention and concentration normal, secretary receptionist and expression intact, fund of information [...] vibration symmetrical, proprioception normal bilaterally. Coordination: Bilateral Tssvoq-ri-takz and finger tapping normal. Bilateral RAH motions [...] from a Microsoft Word template created with [employer]. The text was dictated into the template via Dragon Naturally Speaking. AR CARE AIDE documented in this encounter Plan of Treatment Date Type Specialty Care Team Description 11/06/2019 Laboratory Only Cardiology Pc, Adc Echo Room 1 - 11/06/2019 Commercial Property Manager Visit Cardiology Pc, Adc Vascular Room 1 [...] Effective Dates Phone Addre ss Type Group [facility] STAR xxxxxxxxx 2019-Present Medicaid COMM PLAN - PLUS MANAGED MEDICAID documented as of this encounter
--- OUTSIDE RECORDS SUMMARY | 2019-12-24 03:22 | XMS REPORT | Summary of Care ---
:1935 Author Organization [facility] Address [address] [place] [address] Care Team Providers Name Role Phone Anoop Joy Primary Care Provider Reason for Visit Reason Comments ULTRASOUND (Routine) Status Reason Specialty Diagnoses / Referred By Referred To Procedures Contact Contact Closed Vascular Sonography Diagnoses Slurred speech CVD (cardiovascular disease) TIA (transient ischemic attack) Warren Pepe Procedures CAROTID DUPLEX BILATERAL BY VASCULAR LAB MD Genaro [address] [place] [address]. [place] [address] Encounter Details Date Type Department Care Team Description 11/06/2019 B2B Account Executive Visit [facility] Jignesh Salomon MD [address] [facility] [address] [place] [address] Cerebrovascular Cardiology- Pc, Adc Vascular Room 1 - accident (CVA), [place] unspecified mechanism [address] [facility], [address] [place] [address] Allergies No Known Allergiesdocumented as [...] Description 11/13/2019 Appointment EEG Warren Pepe MD [address] [place] [phone] Samaria Oconnor Eeg Health Maintenance Due Date Last Done Comments DTaP,Tdap,and Td Vaccines (1 - Tdap) 1946 Zoster Recombinant Vaccine (SHINGRIX) (1 of 2) 1986 Medicare Wellness Visit 2001 PNEUMOCOCCAL VACCINES 65+ (1 of 2 - PCV13) 2001 INFLUENZA VACCINE (#1) 2019 documented as of this encounter Results Not on filedocumented in this encounter Visit Diagnoses Diagnosis Cerebrovascular accident (CVA), unspecif ied mechanism documented in this encounter Insurance Payer Benefit Plan / Subscriber ID Effective Dates Phone Addre ss Type Group [facility] STAR xxxxxxxxx 2019-Present Medicaid COMM PLAN - PLUS MANAGED MEDICAID documented as of this encounter
--- OUTSIDE RECORDS SUMMARY | 2019-12-24 03:22 | XMS REPORT | Summary of Care ---
:1935 Author Organization [address] [address] Care Team Providers Name Role Phone Anoop, Joy Primary Care Provider Reason for Visit (Routine) Status Reason Specialty Diagnoses / Referred By Contact Refe rred To Procedures Contact Closed Cardiology Diagnoses Slurred speech CVD (cardiovascular disease) TIA (transient ischemic attack) Warren Pepe, Procedures ECHO ROUTINE W/DOPPLER COLOR Preferred Location: [address] [place] [address] Phone: Encounter Details Date Type Department Care Team Description 11/06/2019 Laboratory Only [facility] Jignesh Salomon M D [address] [place] [address] [address] [place] [address] Slurred speech; Cardiology- [facility] Echo Room 1 - TIA (transient ischemic attack) [address] [place] [address], [address] [place] [address] Allergies No Known Allergiesdocumented as of this encounter (statuses as of 11/06/2019) Medications Medication Sig Dispensed Refills Start Date End Date Status amLODIPine 5 mg tablet Take 5 mg by 0 Active mouth daily. tamsulosin 0.4 mg 24 hr Take by mouth 0 Active capsule daily. atorvastatin 40 mg Take 40 mg by 0 Active tablet mouth daily. Hospital, Clinic, or Other Ordered Dose Route Frequency Start Date End Date Status Facility Administered Medication sulfur hexafluoride 5 mL IV ONCE 11/06/2019 0 Ended microsphr (LUMASON) injection 5 mL documented as of this encounter (statuses as of 11/06/2019) Active Problems Not on filedocumented as of this encounter (statuses as of 11/06/2019) Social History Tobacco Use Types Packs/Day Years Used Date Former Smoker Quit: 1964 Alcohol Use Drinks/Week oz/Week Comments Not Currently Sex Assigned at Date Recorded Not on file Job Start Date Occupation Industry Not on file Not on file Not on file Travel History Travel Start Travel End No recent travel history available. documented as of this encounter Last Filed Vital Signs Vital Sign Reading Time Taken Comments Blood Pressure 167/78 11/06/2019 2:05 PM CDT Pulse 73 11/06/2019 2:05 PM CDT Temperature - - Respiratory Rate - - Oxygen Saturation - - Inhaled Oxygen Concentration - - Weight 91.6 kg (202 lb) 11/06/2019 2:05 PM CDT Height 142.2 cm (4' 8") 11/06/2019 2:05 PM CDT Body Mass Index 45.29 11/06/2019 2:05 PM CDT documented in this encounter Plan of Treatment Date Type Specialty Care Team Description 11/13/2019 Appointment EEG Warren Pepe MD [address] [place] [address]. [place] [address] Samaria Oconnor [facility] Health Maintenance Due Date Last Done Comments DTaP,Tdap,and Td Vaccines (1 - Tdap) 1947 Zoster Recombinant Vaccine (SHINGRIX) (1 of 2) 1986 Medicare Wellness Visit 2001 PNEUMOCOCCAL VACCINES 65+ (1 of 2 - PCV13) 2001 INFLUENZA VACCINE (#1) 2019 documented as of this encounter Results Not on filedocumented in this encounter Visit Diagnoses Diagnosis Slurred speech Other speech disturbance TIA (transient ischemic attack) Unspecified transient cerebral ischemia documented in this encounter Administered Medications Medication Order MAR Action Action Date Dose Rate Site sulfur hexafluoride microsphr Given 11/06/2019 2:49 PM CDT 5 mL (LUMASON) injection 5 mL 5 mL, Intravenous, ONCE, 1 dose, 11/06/19 at 1600, Routine documented in this encounter Insurance Payer Benefit Plan / Subscriber ID Effective Dates Phone Addre ss [facility] xxxxxxxxx 2019-Present Medicaid COMM PLAN - PLUS MANAGED MEDICAID documented as of this encounter
[2019-12-24 03:47] LABS: Absolute Lymphocytes (CBC) 2.9 K/uL (0.7-4.9); Basophils % 0.7 % (0-1.3); Hematocrit 42.6 % (39.6-49.0); Lymphocytes % 26.4 % (15.3-44.8); MPV 10.1 fL (7.6-11.3); RBC Red Blood Cell Count 4.65 M/uL (4.33-5.43)
[2019-12-24 03:50] LABS: Protime INR 1.1
[2019-12-24 04:07] LABS: Albumin 3.3 g/dL (3.4-5.0); Bilirubin Direct 0.1 mg/dL (0-0.2); Bilirubin Total 0.5 mg/dL (0.2-1.0); Potassium 3.9 mmol/L (3.5-5.1); Protein, Total 7.6 g/dL (6.4-8.2)
[2019-12-24 04:08] LABS: Troponin (Emerg Dept Use Only) 0.09 ng/mL (0.0-0.045)
[2019-12-24] MEDS ORDERED: ACETAMINOPHEN 500 MG TAB PO PRN (04:37)
[2019-12-24] MEDS ORDERED: ALPRAZOLAM 0.25 MG TABLET PO PRN (04:37)
[2019-12-24] MEDS ORDERED: ONDANSETRON 4 MG/2 ML VIAL IV PRN (04:37)
--- NOTE | 2019-12-24 04:37 | ER ---
Nurse's Notes [facility] Name: Joe Holt Age: 84 yrs Sex: Male : 1935 Arrival Date: 12/24/2019 Time: 03:19 Bed 7 Private MD: Diagnosis: Dizziness. Near syncope Presentation: 12/23 03:20 Chief complaint: EMS states: FELT LIGHTHEADED AND DIZZINESS SINCE LAST NIGHT. PATIENT rv IS BRADYCARDIC AT HOME, 30s HEART RATE. ON TRANSIT IN WENT TO 60s, VENTRICULAR PACED RHYTHM. NO EPISODE OF HYPOTENSION. DENIES CHEST PAIN OR SOB. Coronavirus screen: Proceed with normal triage. Ebola Screen: No symptoms or risks identified at this time. Initial Sepsis Screen: Does the patient meet any 2 criteria? No. Patient's initial sepsis screen is negative. Does the patient have a suspected source of infection? No. Patient's initial sepsis screen is negative. Risk Assessment: Do you want to hurt yourself or someone else? Patient reports no desire to harm self or others. Onset of symptoms was December 23, 2019 at 22:00. 03:20 Method Of Arrival: EMS: [facility] rv 03:20 Acuity: JUDITH 3 rv Triage Assessment: 03:23 General: Appears comfortable, Behavior is calm, cooperative. Pain: Denies pain. EENT: rv No signs and/or symptoms were reported regarding the EENT system. Neuro: Level of Consciousness is awake, alert, obeys commands, Oriented to person, place, time, situation, Reports dizziness, since LAST NIGHT Denies headache. Cardiovascular: Patient's skin is warm and dry. Rhythm is ventricular pacer. Respiratory: Airway is patent Breath sounds are clear bilaterally. GI: No signs and/or symptoms were reported involving the gastrointestinal system. : No signs and/or symptoms were reported regarding the genitourinary system. Derm: Skin is intact. Musculoskeletal: No signs and/or symptoms reported regarding the musculoskeletal system. Historical: - Allergies: 03:23 PENICILLINS; rv - Home Meds: 03:23 amlodipine 5 mg oral tab 1 tab once daily [Active]; atorvastatin 40 mg oral tab 1 tab rv once daily [Active]; - PMHx: 03:23 Hypertension; rv - PSHx: 03:23 PACEMAKER; rv - Immunization history:: Adult Immunizations up to date. - Social history:: Smoking status: Patient/guardian denies using tobacco, the patient reports quitting approximately 40 years ago. Screenin:24 Abuse screen: Denies threats or abuse. Denies injuries from another. Nutritional rv screening: No deficits noted. Tuberculosis screening: No symptoms or risk factors identified. Fall Risk None identified. Assessment: 04:39 General: Appears comfortable, Behavior is calm, cooperative. Pain: Denies pain. Neuro: rv Level of Consciousness is awake, alert, obeys commands, Oriented to person, place, time, situation, Denies dizziness. Cardiovascular: Rhythm is ventricular pacer. Respiratory: Denies shortness of breath. 04:41 Reassessment: Patient denies pain at this time. Patient states feeling better. Patient rv states symptoms have improved. Vital Signs: 03:20 BP 136 / 79; Pulse 60; Resp 20; Temp 97.8; Pulse Ox 100% ; Weight 92.53 kg; Height 4 rv ft. 8 in. (142.24 cm); Pain 0/10; 04:00 BP 124 / 84; Pulse 63; Resp 23; Pulse Ox 100% on R/A; rv 04:30 BP 147 / 87; Pulse 57; Resp 21; Pulse Ox 97% on R/A; rv 04:30 Pain 0/10; rv 03:20 Body Mass Index 45.74 (92.53 kg, 142.24 cm) rv [place] Coma Score: 04:41 Eye Response: spontaneous(4). Verbal Response: oriented(5). Motor Response: obeys rv commands(6). Total: 15. ED Course: 03:19 Patient arrived in ED. jb4 03:20 Jarrett Decker RN is Primary Nurse. rv 03:22 Tyler Murillo MD is Attending Physician. pkl 03:22 Triage completed. rv 03:23 Arm band placed on Patient placed in the treatment room, on a stretcher, Patient rv notified of wait time. 03:24 Placed in gown. Bed in low position. Call light in reach. Side rails up X 1. Cardiac rv monitor on. Pulse ox on. NIBP on. 03:24 Maintain EMS IV. Dressing intact. Good blood return noted. Site clean \T\ dry. Gauge \T\ rv site: G22 LEFT AC. 03:43 Initial lab(s) drawn, by me, sent to lab. rv 04:10 CT Head Brain wo Cont In Process Unspecified. EDMS 04:12 XRAY Chest (1 view) In Process Unspecified. EDMS 04:36 Kady Duran MD is Hospitalizing Provider. pkl 04:49 No provider procedures requiring assistance completed. IV is patent, with fluids rv infusing freely, with good blood return, Patient admitted, IV remains in place. Administered Medications: No medications were administered Outcome: 04:37 Decision to Hospitalize by Provider. pkl 04:49 Admitted to ER Hold. Please see [facility] for further documentation. rv 04:49 Condition: good 04:49 Instructed on the need for admit, Demonstrated understanding of instructions. 06:31 Patient left the ED. sg Signatures: Dispatcher [employer] EDUzair Barnes, RN RN Tyler Vargas MD MD pkl Umesh Larson, RN RN jb4 Jarrett Decker RN RN rv
--- NOTE | 2019-12-24 04:38 | EDPHYS ---
Physician Documentation [facility] Name: Joe Holt Age: 84 yrs Sex: Male : 1935 Arrival Date: 12/24/2019 Time: 03:19 Bed 7 Private MD: ED Physician Tyler Murillo HPI: 12/23 03:43 This 84 yrs old Male presents to ER via EMS with unknown complaint. pkl 03:43 The patient presents with feeling faint, lightheadedness. Onset: The symptoms/episode pkl began/occurred just prior to arrival, 5 hour(s) ago. Patient said he woke up just prior to coming to the ER he felt dizzy and felt like passing out. He called the ambulance and EMT noted his pacemaker rhythm was in the 30s. On transit to the ER, his ventricular paced rhythm went up to 60s. Historical: - Allergies: 03:23 PENICILLINS; rv - Home Meds: 03:23 amlodipine 5 mg oral tab 1 tab once daily [Active]; atorvastatin 40 mg oral tab 1 tab rv once daily [Active]; - PMHx: 03:23 Hypertension; rv - PSHx: 03:23 PACEMAKER; rv - Immunization history:: Adult Immunizations up to date. - Social history:: Smoking status: Patient/guardian denies using tobacco, the patient reports quitting approximately 40 years ago. ROS: 03:43 Eyes: Negative for injury, pain, redness, and discharge, ENT: Negative for injury, pkl pain, and discharge, Neck: Negative for injury, pain, and swelling, Cardiovascular: Negative for chest pain, palpitations, and edema, Respiratory: Negative for shortness of breath, cough, wheezing, and pleuritic chest pain, Abdomen/GI: Negative for abdominal pain, nausea, vomiting, diarrhea, and constipation, Back: Negative for injury and pain, : Negative for injury, bleeding, discharge, and swelling, MS/Extremity: Negative for injury and deformity, Skin: Negative for injury, rash, and discoloration. 03:43 Neuro: Positive for dizziness, near syncope. Exam: 03:43 Head/Face: Normocephalic, atraumatic. Eyes: Pupils equal round and reactive to light, pkl extra-ocular motions intact. Lids and lashes normal. Conjunctiva and sclera are non-icteric and not injected. Cornea within normal limits. Periorbital areas with no swelling, redness, or edema. ENT: Nares patent. No nasal discharge, no septal abnormalities noted. Tympanic membranes are normal and external auditory canals are clear. Oropharynx with no redness, swelling, or masses, exudates, or evidence of obstruction, uvula midline. Mucous membranes moist. Neck: Trachea midline, no thyromegaly or masses palpated, and no cervical lymphadenopathy. Supple, full range of motion without nuchal rigidity, or vertebral point tenderness. No Meningismus. Chest/axilla: Normal chest wall appearance and motion. Nontender with no deformity. No lesions are appreciated. Cardiovascular: Regular rate and rhythm with a normal S1 and S2. No gallops, murmurs, or rubs. Normal PMI, no JVD. No pulse deficits. Respiratory: Lungs have equal breath sounds bilaterally, clear to auscultation and percussion. No rales, rhonchi or wheezes noted. No increased work of breathing, no retractions or nasal flaring. Abdomen/GI: Soft, non-tender, with normal bowel sounds. No distension or tympany. No guarding or rebound. No evidence of tenderness throughout. Back: No spinal tenderness. No costovertebral tenderness. Full range of motion. Skin: Warm, dry with normal turgor. Normal color with no rashes, no lesions, and no evidence of cellulitis. MS/ Extremity: Pulses equal, no cyanosis. Neurovascular intact. Full, normal range of motion. Neuro: Awake and alert, GCS 15, oriented to person, place, time, and situation. Cranial nerves II-XII grossly intact. Motor strength 5/5 in all extremities. Sensory grossly intact. Cerebellar exam normal. Normal gait. Vital Signs: 03:20 BP 136 / 79; Pulse 60; Resp 20; Temp 97.8; Pulse Ox 100% ; Weight 92.53 kg; Height 4 rv ft. 8 in. (142.24 cm); Pain 0/10; 04:00 BP 124 / 84; Pulse 63; Resp 23; Pulse Ox 100% on R/A; rv 04:30 BP 147 / 87; Pulse 57; Resp 21; Pulse Ox 97% on R/A; rv 04:30 Pain 0/10; rv 03:20 Body Mass Index 45.74 (92.53 kg, 142.24 cm) rv [place] Coma Score: 04:41 Eye Response: spontaneous(4). Verbal Response: oriented(5). Motor Response: obeys rv commands(6). Total: 15. MDM: 03:22 Patient medically screened. pkl 04:34 Data reviewed: vital signs, nurses notes, lab test result(s), EKG, radiologic studies, pkl CT scan, plain films. ED course: Talked to Dr. Duran for observation. 12/23 03:34 Order name: Basic Metabolic Panel pkl 12/23 03:34 Order name: CBC with Diff; Complete Time: 04:06 pkl 12/23 03:34 Order name: LFT's; Complete Time: 04:25 pkl 12/23 03:34 Order name: Magnesium; Complete Time: 04:25 pkl 12/23 03:34 Order name: NT PRO-BNP; Complete Time: 04:25 pkl 12/23 03:34 Order name: PT-INR; Complete Time: 04:06 pkl 12/23 03:34 Order name: Troponin (emerg Dept Use Only); Complete Time: 04:25 pkl 12/23 03:35 Order name: Basic Metabolic Panel; Complete Time: 04:25 EDMS 12/23 03:44 Order name: Glucose, Ancillary Testing; Complete Time: 04:06 EDMS 12/23 04:52 Order name: Urinalysis EDMS 12/23 04:52 Order name: Lipid Profile EDMS 12/23 04:52 Order name: Lipid Profile EDMS 12/23 04:52 Order name: Troponin I EDMS 12/23 04:52 Order name: Troponin I EDMS 12/23 03:34 Order name: XRAY Chest (1 view) pkl 12/23 03:34 Order name: EKG; Complete Time: 03:35 pkl 12/23 03:34 Order name: CT Head Brain wo Cont pkl 12/23 04:52 Order name: NPO EDMS 12/23 04:52 Order name: Echo with Doppler EDMS 12/23 04:52 Order name: Troponin I EDMS 12/23 04:52 Order name: Brain Wo Cont EDMS 12/23 04:53 Order name: Carotid Artery Bilateral EDMS 12/23 04:56 Order name: Lipid Profile EDMS 12/23 04:56 Order name: CBC with Automated Diff EDMS 12/23 04:56 Order name: Comprehensive Metabolic Panel EDMS 12/23 04:56 Order name: Lactate EDMS 12/23 04:56 Order name: Magnesium EDMS 12/23 04:56 Order name: Phosphorus EDMS 12/23 04:56 Order name: T4 Free EDMS 12/23 04:56 Order name: Thyroid Stimulating Hormone EDMS 12/23 03:34 Order name: Cardiac monitoring; Complete Time: 03:36 pkl 12/23 03:34 Order name: EKG - Nurse/Tech; Complete Time: 03:36 pkl 12/23 03:34 Order name: IV Saline Lock; Complete Time: 03:36 pkl 12/23 03:34 Order name: Labs collected and sent; Complete Time: 03:35 pkl 12/23 03:34 Order name: O2 Per Protocol; Complete Time: 03:36 pkl 12/23 03:34 Order name: O2 Sat Monitoring; Complete Time: 03:36 pkl Administered Medications: No medications were administered Disposition: 12/24/19 04:37 Hospitalization ordered by Kady Duran for Observation. Preliminary diagnosis is Dizziness. Near syncope. - Bed requested for Telemetry/MedSurg (observation). - Status is Observation. sg - Condition is Stable. - Problem is new. - Symptoms are unchanged. Signatures: Dispatcher [employer] EDPR Meghan Sales RN RN mw Gay, Steven, RN RN sg Lam, Pin, MD MD pkl Vicente, Ronaldo, RN RN rv Corrections: (The following items were deleted from the chart) 04:41 04:37 Hospitalization Ordered by Kady Duran MD for Observation. Preliminary mw diagnosis is Dizziness. Near syncope. Bed requested for Telemetry/MedSurg (observation). Status is Observation. Condition is Stable. Problem is new. Symptoms are unchanged. pkl 05:25 04:41 12/24/2019 04:37 Hospitalization Ordered by Kady Duran MD for Observation. mw Preliminary diagnosis is Dizziness. Near syncope. Bed requested for [facility] ER HOLD. Status is Observation. Condition is Stable. Problem is new. Symptoms are unchanged. mw 06:31 05:25 12/24/2019 04:37 Hospitalization Ordered by Kady Duran MD for Observation. sg Preliminary diagnosis is Dizziness. Near syncope. Bed requested for Telemetry/MedSurg (observation). Status is Observation. Condition is Stable. Problem is new. Symptoms are unchanged. mw
[2019-12-24] MEDS: NA CHLORIDE 0.9% 1,000 ML IV SCH ×2 (04:56→16:35)
[2019-12-24] MEDS ORDERED: FLUCONAZOLE 100 MG TAB PO ONE (07:46)
--- NOTE | 2019-12-24 07:48 | P.HP ---
Certification for Inpatient Patient admitted to: Inpatient With expected LOS: >2 Midnights Patient will require the following post-hospital care: None Practitioner: I am a practitioner with admitting privileges, knowledge of patient current condition, hospital course, and medical plan of care. Services: Services provided to patient in accordance with Admission requirements found in Title 42 Section 412.3 of the Code of Federal Regulations Patient History Date of Service: 12/24/19 Reason for admission: Near syncope History of Present Illness: Patient is a 84-year-old gentleman who came to the hospital feeling lightheaded and having some dizziness. He has been feeling faint for the last couple of days. EMS came out to assess him and he was found have a heart rate in the 30s. Patient was brought in by ambulance. On arrival to the ER his heart rate had picked up back into the 60s. Patient hemodynamically was stable. Patient has some dysuria as well. Patient is overweight and has some hyperpigmentation around the pannus region. Patient will be admitted to the hospital for further evaluation. Allergies Penicillins Allergy (Verified 12/24/19 05:04) Hives/Rash Home Medications: Amlodipine [Norvasc*] 5 mg PO DAILY 12/11/13 Atorvastatin Calcium 12/24/19 - Past Medical/Surgical History Diabetic: No -: HTN -: Hyperlipidemia -: Obesity -: Murmur -: Bradycardia -: bilateral cataract sx. -: hernia repair -: ulcer repair x 2 Psychosocial/ Personal History: . - Family History Father Family History: Reviewed- Non-Contributory - Social History Smoking Status: Never smoker Alcohol use: No CD- Drugs: No Caffeine use: Yes Review of Systems 10-point ROS is otherwise unremarkable Physical Examination - Vital Signs Temperature: 97.8 F Blood Pressure: 147/87 Pulse: 57 Respirations: 21 Pulse Ox (%): 94 - Physical Exam General: Alert, In no apparent distress, Oriented x3 HEENT: Atraumatic, PERRLA, Mucous membr. moist/pink, EOMI, Sclerae nonicteric Neck: Supple, 2+ carotid pulse no bruit, No LAD, Without JVD or thyroid abnormality Respiratory: Clear to auscultation bilaterally, Normal air movement Cardiovascular: Regular rate/rhythm, Normal S1 S2, Systolic murmur Gastrointestinal: Normal bowel sounds, Soft and benign, Non-distended, No tenderness Musculoskeletal: No clubbing, No swelling, No tenderness Integumentary: Other (Hyper pigmented region around the pannus region; cutaneous candidiasis) Neurological: Normal speech, Normal tone, Sensation intact, Cranial nerves 3-12 intact, Normal affect, Abnormal gait, Abnormal strength Lymphatics: No axilla or inguinal lymphadenopathy - Studies Laboratory Data (last 24 hrs) 12/24/19 03:35: PT 12.9 H, INR 1.10 12/24/19 03:35: WBC 11.0 H, Hgb 13.9, Hct 42.6, Plt Count 176 12/24/19 03:35: Sodium 141, Potassium 3.9, BUN 29 H, Creatinine 1.19, Glucose 96, Magnesium 2.0, Total Bilirubin 0.5, AST 22, ALT 18, Alkaline Phosphatase 64 Assessment & Plan - Problems (Diagnosis) (1) Bradycardia Current Visit: No Status: Acute (2) Dyspnea Current Visit: No Status: Acute (3) Hypertension Current Visit: No Status: Acute (4) Morbid obesity Current Visit: Yes Status: Acute (5) Cutaneous candidiasis Current Visit: Yes Status: Acute (6) Prerenal azotemia Current Visit: Yes Status: Acute - Plan Plan: 1. Carotid Doppler and echocardiogram to assess near syncope 2. Monitor on telemetry for bradycardia 3. Interrogate pacemaker 4. Cardiology consultation 5. Strict blood pressure control 6. Antifungal 7. PT evaluation 8. GI and DVT prophylaxis Discharge Plan: Home - Advance Directives Does patient have a Living Will: Yes Does patient have a Durable POA for Healthcare: No - Code Status/Comfort Care Code Status Assessed: Yes Code Status: Full Code Critical Care: No Time Spent Managing PTS Care (In Minutes): 45
[2019-12-24 08:08] VITALS: BMI 45.7
[2019-12-24] MEDS: ENOXAPARIN 40 MG/0.4 ML SQ SCH (08:25)
--- NOTE | 2019-12-24 08:40 | RAD REPORT ---
EXAM DESCRIPTION: USCarotid Artery Bilateral12/24/2019 7:54 am CLINICAL HISTORY: syncope COMPARISON: None FINDINGS: The velocity of the right internal carotid artery equals 58 cm/sec. The right ICA/CCA rati o 0.9 The velocity of the left internal carotid artery equals 70. Cm/sec. The left ICA/CCA ratio 0.8 Mild plaque is present within the carotid arteries. The right vertebral artery demonstrates antegrade flow. The left vertebral artery was not imaged IMPRESSION: Mild plaque within the carotid arteries without evidence of a hemodynamically significan t stenosis NASCET criteria used. Mild 0-49% stenosis Moderate 50-69% stenosis Severe 70-99% stenosis
[2019-12-24 08:49] LABS: Urine Appearance CLEAR; Urine Bilirubin NEGATIVE (NEG); Urine Blood NEGATIVE (NEG); Urine Color YELLOW; Urine Glucose NEGATIVE (NEG); Urine Protein NEGATIVE (NEG); Urine Specific Gravity 1.015 (1.005-1.030); Urine Urobilinogen 0.2 mg/dL (0.2-1.0)
[2019-12-24 08:59] LABS: Urine Microscopic Reflex NO UMIC
--- NOTE | 2019-12-24 09:26 | RAD REPORT ---
EXAM DESCRIPTION: Abdifatah Single View12/24/2019 4:12 am CLINICAL HISTORY: Chest pain COMPARISON: 2019 FINDINGS: The lungs appear clear of acute infiltrate. The heart is mildly enlarged. Pacemaker leads are in place. IMPRESSION: No acute abnormalities displayed
[2019-12-24] MEDS: AMLODIPINE 5 MG TAB PO SCH (09:56)
[2019-12-24] MEDS: NYSTATIN PWDR 100000 UNIT/GM TOP SCH ×2 (09:57→21:08)
[2019-12-24] MEDS: ASPIRIN EC 81 MG TAB PO SCH (09:57)
[2019-12-24] MEDS: MUPIROCIN 2% OINT 22GM TUBE TOP SCH ×2 (09:58→21:08)
--- NOTE | 2019-12-24 10:07 | RAD REPORT ---
EXAM DESCRIPTION: CT - Head Brain Wo Cont - 12/24/2019 5:16 am CLINICAL HISTORY: The patient is 84 years old and is Male; DIZZINESS TECHNIQUE: Axial computed tomography images of the head/brain without intravenous contrast. Sagitt al and coronal reformatted images were created and reviewed. This CT exam was performed using one o r more of the following dose reduction techniques: automated exposure control, adjustment of the mA and/or kV according to patient size, and/or use of iterative reconstruction technique. COMPARISON: CT head October 03, 2019 FINDINGS: BRAIN: There is diffuse cerebral atrophy present, consistent with this patient's age. There is patchy hypoattenuation of the deep white matter which is non-specific, but most likely owing to chronic small vessel ischemic change in a patient of this age group. No intracranial hemorrhage , mass effect, or midline shift is seen. There are no extra-axial fluid collections. VENTRICLES: Unremarkable. No ventriculomegaly. BONES/JOINTS: No acute fracture. SOFT TISSUES: Unremarkable. SINUSES: Unremarkable as visualized. No acute sinusitis. MASTOID AIR CELLS: Unremarkable as visualized. No mastoid effusion. ORBITS: Unremarkable as visualized. IMPRESSION: Age-related atrophy and chronic white matter ischemic changes, with no evidence of an ac [place] intracranial abnormality. Electronically signed by: Sarahi Shay MD 12/24/2019 4:15 AM CDT Due to temporary technical issues with the PACS/Fluency reporting system, reports are being signed by the in house radiologist as a courtesy to ensure prompt reporting. The interpreting radiologist is f ully responsible for the content of the report.
[2019-12-24 11:19] LABS: Absolute Lymphocytes (CBC) 2.5 K/uL (0.7-4.9); Basophils % 0.3 % (0-1.3); Hematocrit 44.7 % (39.6-49.0); Lymphocytes % 27.8 % (15.3-44.8); MPV 9.8 fL (7.6-11.3); RBC Red Blood Cell Count 4.89 M/uL (4.33-5.43)
[2019-12-24 11:42] LABS: Albumin 3.4 g/dL (3.4-5.0); Bilirubin Total 0.6 mg/dL (0.2-1.0); Protein, Total 7.7 g/dL (6.4-8.2); Thyroid Stimulating Hormone 1.75 uIU/mL (0.360-3.740); Troponin I 0.08 ng/mL (0.0-0.045)
--- NOTE | 2019-12-24 13:26 | P.PN ---
Date of Service: 12/24/19 Patient seen, admitted for syncope and fall, denies any new complaint now. Has AICD insitu, unable to get location and the nature of AICD placement from patient or family. called by nursing staff. Follow Cardiology evaluation. MRI of brain was canceled due to indwelling AICD. Orthostatics vitals stable. Follow carotid ultrasound.
[2019-12-24] MEDS ORDERED: ENOXAPARIN 40 MG/0.4 ML SQ SCH (17:00)
--- NOTE | 2019-12-24 20:13 | EKG ---
Test Date: 2019-12-24 Test Time: 03:25:08 Clinical Application Specialist: DEJAH MEASUREMENT RESULTS: Intervals: Rate: 59 VA: 304 QRSD: 178 QT: 518 QTc: 512 [place]: P: 40 VA: 304 QRS: -84 T: 83 INTERPRETIVE STATEMENTS: Atrial-sensed ventricular-paced rhythm with prolonged AV conduction Abnormal ECG Compared to ECG 05/10/2019 14:11:29 No significant changes Electronically Signed On 12-24-19 20:11:03 CDT by Giacomo Crfat
[2019-12-25] MEDS: NA CHLORIDE 0.9% 1,000 ML IV SCH ×2 (04:51→19:43)
--- NOTE | 2019-12-25 08:11 | ECHO ---
HEIGHT: 4 ft 8 in WEIGHT: 204 lb 0 oz DATE OF STUDY: 12/24/[address]: Kady Duran MD 2-DIMENSIONAL: YES M.MODE: YES DOPPLER: YES COLOR FLOW: YES TDS: PORTABLE: DEFINITY: BUBBLE STUDY: DIAGNOSIS: SYNCOPE CARDIAC HISTORY: CATHERIZATION: NO SURGERY: NO PROSTHETIC VALVE: NO PACEMAKER: YES MEASUREMENTS (cm) DIASTOLIC (NORMALS) SYSTOLIC (NORMALS) IVSd 1.2 (0.6-1.2) LA Diam 2.4 (1.9-4.0) LVEF 57% LVIDd 3.3 (3.5-5.7) LVIDs 2.6 (2.0-3.5) %FS 29% LVPWd 1.3 (0.6-1.2) Ao Diam 2.8 (2.0-3.7) 2 DIMENSIONAL ASSESSMENT: RIGHT ATRIUM: NORMAL LEFT ATRIUM: NORMAL RIGHT VENTRICLE: NORMAL LEFT VENTRICLE: LEFT VENTRICULAR HYPERTROPHY TRICUSPID VALVE: NORMAL MITRAL VALVE: MITRAL ANNULAR CALCIFICATION PULMONIC VALVE: NORMAL AORTIC VALVE: STENOTIC PERICARDIAL EFFUSION: NONE AORTIC ROOT: NORMAL LEFT VENTRICULAR WALL MOTION: NORMAL DOPPLER/COLOR FLOW: MODERATE AORTIC STENOSIS - AREA 1.3 CENTIMETERS SQUARED COMMENTS: MODERATE AORTIC STENOSIS - AREA 1.3 CENTIMETERS SQUARED. LEFT VENTRICULAR HYPERTROPHY. MITRAL ANNULAR CALCIFICATION. NORMAL EJECTION FRACTION. TECHNOLOGIST: HARRIETT CHAVIRA
[2019-12-25] MEDS: ASPIRIN EC 81 MG TAB PO SCH (08:21)
[2019-12-25] MEDS: ENOXAPARIN 40 MG/0.4 ML SQ SCH (08:21)
[2019-12-25] MEDS: AMLODIPINE 5 MG TAB PO SCH (08:21)
[2019-12-25] MEDS: NYSTATIN PWDR 100000 UNIT/GM TOP SCH ×2 (08:22→19:44)
[2019-12-25] MEDS: MUPIROCIN 2% OINT 22GM TUBE TOP SCH ×2 (08:23→19:44)
[2019-12-25 10:38] VITALS: O2SAT 98
--- NOTE | 2019-12-25 11:50 | P.PN ---
Subjective Date of Service: 12/25/19 Chief Complaint: Near syncope Subjective: No new changes, Improving, Working w/ PT (-feels better today, noted to have difficulty with ambulation while walking with PT) Physical Examination - Vital Signs Temperature: 97.5 F Blood Pressure: 153/75 Pulse: 52 Respirations: 18 Pulse Ox (%): 98 - Physical Exam General: Alert, In no apparent distress, Oriented x3 HEENT: Atraumatic, Normocephalic, PERRLA Neck: Supple, 2+ carotid pulse no bruit, JVD not distended Respiratory: Clear to auscultation bilaterally, Normal air movement Cardiovascular: No edema, Regular rate/rhythm, Normal S1 S2, Other (AICD insitu) Gastrointestinal: Normal bowel sounds, Soft and benign, Non-distended Musculoskeletal: No clubbing, No swelling Integumentary: No rashes, No breakdown Assessment And Plan - Current Problems (Diagnosis) (1) Syncope Current Visit: Yes Status: Acute (2) Morbid obesity Current Visit: Yes Status: Acute (3) Bradycardia Current Visit: No Status: Acute (4) Hyperlipidemia Current Visit: No Status: Acute (5) Hypertension Current Visit: No Status: Acute Physician Review: Patient Assessed, Agree with Above Assessment and Plan Physician Review Additional Text: # syncope-resolved, no recurrence since admission -monitoring specialist negative for any cardiac arrhythmia except for persistent stable mild bradycardia -unable to interrogate AICD as unknown information on nature of device -family unable to get information -awaiting Cardiology evaluation -carotid ultrasound negative for significant stenosis, echocardiogram showed moderate aortic stenosis with normal EF -negative ortho static hypotension Will continue to monitor #Weakness-having difficulty ambulating with PT -case management discuss with for SNF #Hypertension-improving control, continue home regimen - will add imdur for better BP control #Obesity-stable #DVT prophylaxis start on subcutaneous heparin dc home when SNF obtained
--- NOTE | 2019-12-25 12:51 | PN ---
Date of Progress Note: 12/25/2019 Mr. Holt is an 84-year-old male. He came in with syncope. He takes Norvasc and Lipitor at home. He has a history of permanent pacemaker placement in 2013. He has a history of hypertension and dysl ipidemia. A carotid Doppler yesterday showed no significant stenosis. EKG showed paced rhythm. Gayla st x-ray was negative. He has an elevated troponin of 0.09. Overnight, he has not had any more symp toms. He is not orthostatic. Echocardiogram shows moderate aortic stenosis. I think, he can go elijah e today and follow up in the office when I will have him do a Lexiscan and event monitor. LIOR/CHIKA Voice ID: [id number] Report ID: [id number]
--- NOTE | 2019-12-25 13:06 | CON ---
Date of Consultation: 12/24/2019 Reason For Admission: Syncope. History Of Present Illness: Mr. Holt is an 84-year-old white male, who has a history of hypertensi on, dyslipidemia, history of pacemaker in 2013. He only takes Norvasc and Lipitor. He came in with a sudden syncopal episode without any nausea, vomiting, diaphoresis, PND, orthopnea, pedal edema, pal pitations. He denied any chest pain. Denied any nausea or vomiting or diaphoresis. Denied any feve r or chills. Allergies: HIS ALLERGIES INCLUDE PENICILLIN AND ONIONS. Medications: Include Norvasc, Lipitor, and aspirin. Review of Systems: Negative. Social History: Negative. Family History: Negative. Physical Examination: General: He was alert and oriented x3. Vital Signs: Stable. He was in a paced rhythm at a rate of 60. HEENT: Negative. Neck: Supple. No bruit. No JVD, thyromegaly, or lymphadenopathy. RESPIRATORY: His chest was clear to auscultation and percussion. Cardiac: Exam revealed a paced rhythm with an aortic stenosis murmur. No gallops. No rubs. Abdomen: Benign. Extremities: Revealed no clubbing, cyanosis, or edema. Diagnostic Data: Showed a negative carotid Doppler. EKG showed paced rhythm. Chest x-ray was negat simón. Troponin was slightly elevated at 0.09. BNP was 890. White count is 11,000. He was 100% pace d. Impression: 1.Syncope most likely secondary to orthostatic hypotension. 2.Hypertension. 3.Dyslipidemia. 4.Status post pacemaker. 5.Elevated troponin and BNP. 6.Elevated white count. Plan: Mr. Holt is being hydrated with normal saline. He is still on aspirin. His Norvasc has bee n continued. He is feeling better. I think we need to have his pacemaker check. He needs to have a 2D echocardiogram. I [facility] LIOR/CHIKA Voice ID: [id number] Report ID: [id number]
[2019-12-25] MEDS: POLYETHYL GLY 3350 17 GM/DOSE PO SCH (21:13)
[2019-12-26] MEDS: MUPIROCIN 2% OINT 22GM TUBE TOP SCH (09:00)
[2019-12-26] MEDS: NA CHLORIDE 0.9% 1,000 ML IV SCH ×2 (10:20→10:46)
[2019-12-26] MEDS: POLYETHYL GLY 3350 17 GM/DOSE PO SCH (10:36)
[2019-12-26] MEDS: ASPIRIN EC 81 MG TAB PO SCH (10:36)
[2019-12-26] MEDS: AMLODIPINE 5 MG TAB PO SCH (10:36)
[2019-12-26] MEDS: ENOXAPARIN 40 MG/0.4 ML SQ SCH (10:37)
[2019-12-26] MEDS: NYSTATIN PWDR 100000 UNIT/GM TOP SCH (10:38)
--- NOTE | 2019-12-26 11:52 | P.DS ---
Admission Date: 12/24/19 Discharge Date: 12/26/19 Disposition: DC HOME/HOME HEALTH CARE Discharge Condition: FAIR Reason for Admission: Near syncope - Problems (1) Syncope Current Visit: Yes Status: Acute (2) Morbid obesity Current Visit: Yes Status: Acute (3) Bradycardia Current Visit: No Status: Acute (4) Hyperlipidemia Current Visit: No Status: Acute (5) Hypertension Current Visit: No Status: Acute Hospital Course: Patient with history of AICD, CHF, hypertension, poor historian admitted after having what felt like a syncope. He was admitted for observation. He was noted to have mild weakness on presentation. He was not orthostatic. Cardiology consult was obtained. Telemetry monitoring reviewed and patient remained in atrial paced rhythm although mildly bradycardic. He had an echocardiogram done- shows normal EF with moderate aortic stenosis. He had a negative carotid ultrasound for stenosis. Patient's weakness started to improve with physical therapy. It was felt patient will benefit from inpatient rehab. Rehab consult was obtained. The patient recommended he can be discharged home to continue home PT. Patient has significantly improved. He will be discharged home today. 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 Of note, patient home medications with no completely obtained from family despite several attempts. His blood pressure was controlled with added amlodipine Vital Signs/Physical Exam: Temp Pulse Resp BP Pulse Ox 97.2 F 85 20 164/92 H 98 12/26/19 08:00 12/26/19 10:36 12/26/19 08:00 12/26/19 10:36 12/26/19 08:00 General: Alert, In no apparent distress, Oriented x3, Obese HEENT: Atraumatic, Normocephalic, PERRLA Neck: Supple, 2+ carotid pulse no bruit, JVD not distended Respiratory: Clear to auscultation bilaterally, Normal air movement Cardiovascular: Normal pulses, Regular rate/rhythm, Normal S1 S2 Gastrointestinal: Normal bowel sounds, Soft and benign Musculoskeletal: No clubbing, No swelling Laboratory Data at Discharge: WBC 9.0 K/uL (4.3-10.9) D 12/24/19 11:06 Hgb 14.7 g/dL (13.6-17.9) 12/24/19 11:06 Hct 44.7 % (39.6-49.0) 12/24/19 11:06 Plt Count 179 K/uL (152-406) 12/24/19 11:06 PT 12.9 SECONDS (9.5-12.5) H 12/24/19 03:35 INR 1.10 12/24/19 03:35 Sodium 139 mmol/L (136-145) 12/24/19 11:06 Potassium 4.0 mmol/L (3.5-5.1) 12/24/19 11:06 BUN 22 mg/dL (7-18) H 12/24/19 11:06 Creatinine 0.93 mg/dL (0.55-1.3) 12/24/19 11:06 Glucose 108 mg/dL (74-106) H 12/24/19 11:06 Phosphorus 3.0 mg/dL (2.5-4.9) 12/24/19 11:06 Magnesium 2.0 mg/dL (1.8-2.4) 12/24/19 11:06 Total Bilirubin 0.6 mg/dL (0.2-1.0) 12/24/19 11:06 AST 21 U/L (15-37) 12/24/19 11:06 ALT 18 U/L (12-78) 12/24/19 11:06 Alkaline Phosphatase 68 U/L (45-117) 12/24/19 11:06 Troponin I 0.05 ng/mL (0.0-0.045) H 12/24/19 19:17 Triglycerides 122 mg/dL (<150) 12/25/19 03:56 Cholesterol 132 mg/dL (<200) 12/25/19 03:56 HDL Cholesterol 39 mg/dL (40-60) L 12/25/19 03:56 Cholesterol/HDL Ratio 3.38 12/25/19 03:56 Home Medications: Atorvastatin Calcium 40 mg PO DAILY 12/24/19 Amlodipine [Norvasc*] 5 mg PO BID #60 tab 12/26/19 Polyethylene Glycol 3350 [Miralax] 17 gm PO DAILY #30 powd.pack 12/26/19 New Medications: Polyethylene Glycol 3350 [Miralax] 17 gm PO DAILY #30 powd.pack Amlodipine [Norvasc*] 5 mg PO BID #60 tab Patient Discharge Instructions: Follow with home PT. -follow up with Cardiology in 1 week Diet: Low sodium Activity: Ad massiel Time spent managing pt's care (in minutes): 35
[2019-12-26] MEDS ORDERED: LACTULOSE 20 GM/30 ML UCUP PO ONE (11:53)
[2019-12-26 12:54] VITALS: BP 139/94; TEMP 97
== END 2019-12-26 13:55 | disposition home health service (06) ==
LOC: ER 03:18 → INTOOBSV 04:58 → ERHOLD 04:58 → 2ND 05:42
PROVIDERS: ADMIT Hospitalist; ATTEND Internal Medicine
DX: R55 Syncope and collapse (principal); R00.1 Bradycardia, unspecified; E66.01 Morbid (severe) obesity due to excess calories; Z68.42 Body mass index [BMI] 45.0-49.9, adult; E78.5 Hyperlipidemia, unspecified; I11.0 Hypertensive heart disease with heart failure; I50.9 Heart failure, unspecified; I35.0 Nonrheumatic aortic (valve) stenosis; Z95.810 Presence of automatic (implantable) cardiac defibrillator
CPT/HCPCS: 36415; 70450; 71045; 80048; 80053; 80061; 80076; 81003; 82947; 83605; 83735; 83880; 84100; 84439; 84443; 84484; 85025; 85610; 93005; 93280; 93306; 93880; 97116; 97161; 97530; 99285; G0378; J1650; J2405; J7030

== ENCOUNTER 2020-04-16 08:47 | Emergency (ER) | payer OTHER ==
--- OUTSIDE RECORDS SUMMARY | 2020-04-16 09:19 | XMS REPORT | Continuity of Care Document ---
:[address] [facility] Vinay [facility] [place] Care Team Providers Name Role Phone 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, systemic N euro arterial (disorder) Morbid obesity Active Problem 02/22/2020 Misc her (disorder) Neuro Medications Medication Details Route Status Patient Ordering Order Source Instructions Provider Date Amlodipine 5 mg, PO, Active 02[facility]19/20 [facility], 0 20 Neuro Refill(s) rosuvastatin 0 Active 02/19/20 [facility] Refill(s) 20 Neuro Allergies, Adverse Reactions, Alerts Substance Category Reaction Severity Reaction Status Date Comments S ource type Reported No Known Assertion Drug Misch er Medication allergy Neuro Allergies Immunizations No Data Provided for This Section Results No Data Provided for This Section Pathology Reports No Data Provided for This Section Diagnostic Reports No Data Provided for This Section Consultation Notes No Data Provided for This Section Discharge Summaries No Data Provided for This Section History and Physicals No Data Provided for This Section Vital Signs Vital Sign Value Date Comments Source Systolic (mm Hg) 130 02/19/2020 [facility] David ro Diastolic (mm Hg) 76 02/19/2020 [facility] Ne uro Heart Rate 86 02/19/2020 [facility] Neuro Respitory Rate 16 02/19/2020 [facility] Neuro Height 144.78 cm 02/19/2020 [facility] Neuro Weight 88.636 02/19/2020 [facility] Neuro BMI Calculated 42.29 02/19/2020 [facility] Neuro Encounters Location Location Encounter Encounter Reason Attending ADM [place] Stat Source Details Type Number For Provider Date Date Visit Outpatient [id number] Tk 02/18 [facility] Theresa MNA Outpatient [id number] Tk 02/18 02/19 [facility] /2019 [facility] [place] [facility] [id number] Tk 04/[address] [facility] Vinay Outpatient [id number] Tk 04/[address] 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
--- OUTSIDE RECORDS SUMMARY | 2020-04-16 09:19 | XMS REPORT | Continuity of Care Document ---
:1935 Author Organization [facility] t Address [address] [place] [address] Care Team Providers Name Role Phone Shiraz Sin Attending Clinician Pc, Vascular Room 1 - Attending Clinician Unavailable Problems Condition Condition Condition Status Onset Resolution Last Treating Co mments Source Name Details Category Date Date Treatment Clinician Date Cardiac Problem Active 2020-02-22 Fredis kasie pacemaker 00:58:10 l in situ Cardiac Anthony n (finding) pacemaker in situ (finding) Active Problem 02/22/2020 [facility] Dizziness Problem Active 2020-02-22 Me moria (finding) 00:58:10 l Vinay Dizziness (finding) Active Problem 02/22/2020 [facility] Headache Problem Active 2020-02-22 Mem oria (finding) 00:58:10 l Headache Anthony n (finding) Active Problem 02/22/2020 [facility] Hyperlipid Problem Active 2020-02-22 M emoria emia 00:58:10 l (disorder) Anthony n Hyperlipid emia (disorder) Active Problem 02/22/2020 [facility] Hypertensi Problem Active 2020-02-22 M emoria ve 00:58:10 l disorder, [place] systemic Hypertensi arterial ve (disorder) disorder, systemic arterial (disorder) Active Problem 02/22/2020 [facility] Morbid Problem Active 2020-02-22 Memor ia obesity 00:58:10 l (disorder) Morbid Herm fly obesity (disorder) Active Problem 02/22/2020 [facility] Allergies, Adverse Reactions, Alerts Allergy Allergy Status Severity Reaction(s) Onset Inactive Treating Comm ents Source Name Type Date Date Clinician No Known No Known Active Memori a Medicati Medicati l on on [place] Allergie Allergie s s Social History Social Habit Start Date Stop Date Quantity Comments Source Social History 2020-02-19 2020-02-19 [place] marianelaann 15:56:39 15:56:39 Medications Ordered Filled Start Stop Current Ordering Indication Dosage Frequency Signature Comments Components Source Medication Medication Date Date Medication? Clinician (SIG) Name Name Amlodipine Yes 5 mg, PO, Me moria 02-18 Daily, 0 l 15:44: Refill(s) Vinay 00 rosuvastati Yes 0 Memori a n 02-18 Refill(s) l 15:44: [place] 00 Vital Signs Vital Name Observation Time Observation Value Comments Source Systolic (mm Hg) 2020-02-19 15:41:00 Fredis rial [place] Diastolic (mm Hg) 2020-02-19 15:41:00 [facility] orial [place] Heart Rate 2020-02-19 15:41:00 [facility] Respitory Rate 2020-02-19 [facility] Height 2020-02-19 15:41:00 144.78 cm [facility] Weight 2020-02-19 15:41:00 [facility] BMI Calculated 2020-02-19 15:41:00 [facility] [place] Procedures This patient has no known procedures. Encounters Start End Encounter Admission Attending Care Care Encounter Source Date/Time Date/Time Type Type Clinicians Facility Department ID 2020-02-19 2020-02-19 [id number] 11:00:00 23:59:59 Tk 00 Shiraz 2019-11-06 2019-11-06 [facility] [employer] [facility], Adc [facility] [id number] 14:18:06 15:47:49 Visit Vascular Raysal [id number] Room 1 - Lenorah [id number] Profabhishek [id number] nal 059 Building Results This patient has no known results.
--- OUTSIDE RECORDS SUMMARY | 2020-04-16 09:19 | XMS REPORT | Summary of Care ---
:1935 Author Organization [facility] [place] Address [address] [place] [address]- Encounter HQ Maxi(LISSETTE) [id number] Date(s): 02/19/20 - 02/19/20 [facility] [address] [place] [address]- [phone] Discharge Disposition: Home or Self Care Attending Physician: Tk Sin MD Referring Physician: Tk Sin MD Vital Signs Most recent to oldest [Reference Range]: 1 Height 144.78 cm (02/19/20 10:41 AM) Blood Pressure [90-140/60-90 mmHg] 130/76 mmHg (02/19/20 10:41 AM) Respiratory Rate [14-20 BRMIN] 16 BRMIN (02/19/20 10:41 AM) Peripheral Pulse Rate [60-100 bpm] 86 bpm (02/19/20 10:41 AM) Weight 88.636 kg (02/19/20 10:41 AM) Body Mass Index 42.29 m2 (02/19/20 10:41 AM) Problem List Condition Effective Dates Status Health Status Informant Pacemaker(Confirmed) Active Dizziness(Confirmed) Active Headache(Confirmed) Active Hyperlipidemia(Confirmed) Active Hypertension(Confirmed) Active Morbid obesity(Confirmed) Active Allergies, Adverse Reactions, Alerts No Known Medication Allergies Medications amLODIPine 5 mg, PO, Daily, 0 Refill(s) Start Date: 02/19/20 Status: Orderedrosuvastatin 0 Refill(s) Start Date: 02/19/20 Status: Ordered Results No data available for this section Immunizations No data available for this section Procedures No data available for this section Social History Social History Type Response Employment/School 1, 2 Smoking Status Unknown if ever smoked; Expo sure to Tobacco Smoke Unable to obtain; Cigarette Smoking Last 365 Days Unable to obtain; Reg Smoking Cessation Counseling No entered on: 02/19/20 1POA Kate Holt -[id number] release medical information to - Kate Holt & Caregiver-Tamia Graham Assessment and Plan No data available for this section
[2020-04-16 09:33] LABS: Absolute Lymphocytes (CBC) 2.4 K/uL (0.7-4.9); Basophils % 0.9 % (0-1.3); Hematocrit 43.7 % (39.6-49.0); Lymphocytes % 27.7 % (15.3-44.8); MPV 10.5 fL (7.6-11.3); RBC Red Blood Cell Count 4.78 M/uL (4.33-5.43)
[2020-04-16 09:37] LABS: Protime INR 1.1
--- NOTE | 2020-04-16 09:55 | RAD REPORT ---
EXAM DESCRIPTION: RAD - Chest Single View - 04/16/2020 9:17 am CLINICAL HISTORY: Tired and weak, shortness of breath COMPARISON: Portable November 2019 TECHNIQUE: AP portable chest image was obtained 04/16/2020 9:17 am . FINDINGS: Lung bal are relatively underinflated. No peripheral mass or consolidations seen. Inter stitial pattern is not substantially different when adjusting for the inspiratory differences. Failur e or volume overload are not suspected. Pacemaker is in place. Heart and vasculature are normal. No m easurable pleural effusion and no pneumothorax. No acute bony abnormality seen. No acute aortic findi ngs suspected. IMPRESSION: No acute cardiopulmonary process. No significant change from comparison.
[2020-04-16 10:01] LABS: ALT/SGPT 27 U/L (12-78); AST/SGOT 29 U/L (15-37); Albumin 3.6 g/dL (3.4-5.0); Alkaline Phosphatase 66 U/L (45-117); BUN Blood Urea Nitrogen 21 mg/dL (7-18); Bicarbonate 28 mmol/L (21-32); Bilirubin Direct 0.2 mg/dL (0-0.2); Bilirubin Total 0.8 mg/dL (0.2-1.0); Glucose Level 90 mg/dL (74-106); Magnesium 2.1 mg/dL (1.8-2.4); NT PRO-BNP 408 pg/mL (<450); Potassium 4.3 mmol/L (3.5-5.1); Protein, Total 7.8 g/dL (6.4-8.2); Sodium Level 140 mmol/L (136-145); Troponin (Emerg Dept Use Only) < 0.02 ng/mL (0.0-0.045)
--- NOTE | 2020-04-16 10:54 | ER ---
Nurse's Notes [facility] Name: Joe Holt Age: 84 yrs Sex: Male : 1935 Arrival Date: 04/16/2020 Time: 08:51 Bed 18 Private MD: Diagnosis: Weakness;Chronic fatigue, unspecified;Constipation Presentation: 04/16 09:09 Chief complaint: Patient states: been feeling tired and sleeping a lot in the past 2-3 em weeks, also not eating well and reports constipation, was sent over for eval. denies any other symptoms. Coronavirus screen: Client denies travel out of the [place] in the last 14 days. Ebola Screen: Patient negative for fever greater than or equal to 101.5 degrees Fahrenheit, and additional compatible Ebola Virus Disease symptoms Patient denies exposure to infectious person. Patient denies travel to an Ebola-affected area in the 21 days before illness onset. No symptoms or risks identified at this time. Initial Sepsis Screen: Does the patient meet any 2 criteria? No. Patient's initial sepsis screen is negative. Does the patient have a suspected source of infection? No. Patient's initial sepsis screen is negative. Risk Assessment: Do you want to hurt yourself or someone else? Patient reports no desire to harm self or others. Onset of symptoms was March 29, 2020. 09:09 Method Of Arrival: Wheelchair em 09:09 Acuity: JUDITH 3 em Historical: - Allergies: 09:12 PENICILLINS; em - PMHx: 09:12 Hypertension; em - PSHx: 09:12 PACEMAKER; em - Immunization history:: Adult Immunizations up to date. - Social history:: Smoking status: Patient denies any tobacco usage or history of. Screenin:12 Abuse screen: Denies threats or abuse. Nutritional screening: No deficits noted. em Tuberculosis screening: No symptoms or risk factors identified. Fall Risk Secondary diagnosis (15 points) impaired mobility, Gait- Weak (10 pts.). Total Rahman Fall Scale indicates Low Risk Score (25-44 pts). Side Rails Up X 2 Placed close to Nursing Station Frequent Obs/Assesments occuring. Assessment: 09:09 General: Appears in no apparent distress. comfortable, Behavior is calm, cooperative, em appropriate for age, Reports fatigue for >3 days. Pain: Denies pain. Neuro: Level of Consciousness is awake, alert, obeys commands, Oriented to person, place, time, situation, Appropriate for age. Cardiovascular: Capillary refill < 3 seconds Patient's skin is warm and dry. Rhythm is ventricular pacer. Respiratory: Airway is patent Respiratory effort is even, unlabored, Respiratory pattern is regular, symmetrical. GI: Abdomen is round non-distended, Reports constipation, Patient currently denies nausea, vomiting. Derm: Skin is intact, is healthy with good turgor, Skin is pink, warm \T\ dry. Musculoskeletal: Capillary refill < 3 seconds, Range of motion: intact in all extremities, Swelling absent. 10:00 Reassessment: Patient appears in no apparent distress at this time. Patient and/or em family updated on plan of care and expected duration. Pain level reassessed. Patient is alert, oriented x 3, equal unlabored respirations, skin warm/dry/pink. 11:24 Reassessment: Dr. Chandra at bedside. em Vital Signs: 09:09 BP 137 / 72; Pulse 86; Resp 20; Temp 98.7(O); Pulse Ox 97% on R/A; Weight 88.45 kg; em Pain 0/10; 09:56 BP 142 / 89; Pulse 74; Resp 16; Pulse Ox 99% on R/A; em 11:24 BP 147 / 75; Pulse 75; Resp 18; Pulse Ox 99% on R/A; Pain 0/10; em ED Course: 08:51 Patient arrived in ED. ds1 08:57 Tra Phillip, RN is Primary Nurse. em 08:59 Raudel Chandra MD is Attending Physician. kdr 09:11 Triage completed. em 09:12 Arm band placed on. em 09:12 Patient has correct armband on for positive identification. Bed in low position. Call em light in reach. cooker meal on. Pulse ox on. NIBP on. 09:17 XRAY Chest (1 view) In Process Unspecified. EDMS 09:22 Initial lab(s) drawn, by me, sent to lab. Inserted saline lock: 22 gauge in right hand, em using aseptic technique. Blood collected. 09:35 EKG done, by ED staff, reviewed by Raudel Chandra MD. em 11:35 No provider procedures requiring assistance completed. IV discontinued, intact, em bleeding controlled, No redness/swelling at site. Pressure dressing applied. Administered Medications: No medications were administered Outcome: 10:54 Discharge ordered by . kdr 11:35 Discharged to home via wheelchair. em 11:35 Condition: good 11:35 Discharge instructions given to patient, Instructed on discharge instructions, follow up and referral plans. medication usage, Demonstrated understanding of instructions, follow-up care, medications, Prescriptions given X 2. 11:36 Patient left the ED. em Signatures: Dispatcher [employer] EDRaudel Diez MD MD kdr Munoz, Edgar, RN RN em Peggy Bucio ds1
--- NOTE | 2020-04-16 10:55 | EDPHYS ---
Physician Documentation [facility] Name: Joe Holt Age: 84 yrs Sex: Male : 1935 Arrival Date: 04/16/2020 Time: 08:51 Bed 18 Private MD: ED Physician Raudel Chnadra HPI: 04/16 09:08 This 84 yrs old Male presents to ER via Unassigned with complaints of kdr Tiredness. 09:08 The patient states that he he feeling generally tired and weak but otherwise without kdr focal c/o. Onset: The symptoms/episode began/occurred at an unknown time. Severity of symptoms: At their worst the symptoms were mild in the emergency department the symptoms are unchanged. The patient has not experienced similar symptoms in the past. The patient has not recently seen a physician. Historical: - Allergies: 09:12 PENICILLINS; em - PMHx: 09:12 Hypertension; em - PSHx: 09:12 PACEMAKER; em - Immunization history:: Adult Immunizations up to date. - Social history:: Smoking status: Patient denies any tobacco usage or history of. ROS: 09:08 Constitutional: Negative for fever, chills, and weight loss - feels generaly weak and kdr tired Eyes: Negative for injury, pain, redness, and discharge, ENT: Negative for injury, pain, and discharge, Neck: Negative for injury, pain, and swelling, Cardiovascular: Negative for chest pain, palpitations, and edema, Respiratory: Negative for shortness of breath, cough, wheezing, and pleuritic chest pain, Abdomen/GI: Negative for abdominal pain, nausea, vomiting, diarrhea, - he does have constipation, Back: Negative for injury and pain, : Negative for injury, bleeding, discharge, and swelling, MS/Extremity: Negative for injury and deformity, Skin: Negative for injury, rash, and discoloration, Neuro: Negative for headache, weakness, numbness, tingling, and seizure activity. Psych: Negative for depression, anxiety, suicide ideation, homicidal ideation, and hallucinations, Allergy/Immunology: Negative for hives, rash, and allergies, Endocrine: Negative for neck swelling, polydipsia, polyuria, polyphagia, and marked weight changes, Hematologic/Lymphatic: Negative for swollen nodes, abnormal bleeding, and unusual bruising. Exam: 09:08 Constitutional: This is a well developed, well nourished patient who is awake, alert, kdr and in no acute distress. Head/Face: Normocephalic, atraumatic. Eyes: Pupils equal round and reactive to light, extra-ocular motions intact. Lids and lashes normal. Conjunctiva and sclera are non-icteric and not injected. Cornea within normal limits. Periorbital areas with no swelling, redness, or edema. Neck: Trachea midline, no thyromegaly or masses palpated, and no cervical lymphadenopathy. Supple, full range of motion without nuchal rigidity, or vertebral point tenderness. No Meningismus. Chest/axilla: Normal chest wall appearance and motion. Nontender with no deformity. No lesions are appreciated. Cardiovascular: Regular rate and rhythm with a normal S1 and S2. No gallops, murmurs, or rubs. Normal PMI, no JVD. No pulse deficits. Respiratory: Lungs have equal breath sounds bilaterally, clear to auscultation and percussion. No rales, rhonchi or wheezes noted. No increased work of breathing, no retractions or nasal flaring. Back: No spinal tenderness. No costovertebral tenderness. Full range of motion. Skin: Warm, dry with normal turgor. Normal color with no rashes, no lesions, and no evidence of cellulitis. MS/ Extremity: Pulses equal, no cyanosis. Neurovascular intact. Full, normal range of motion. Neuro: Awake and alert, GCS 15, oriented to person, place, time, and situation. Cranial nerves II-XII grossly intact. Motor strength 5/5 in all extremities. Sensory grossly intact. Cerebellar exam normal. Normal gait. Psych: Awake, alert, with orientation to person, place and time. Behavior, mood, and affect are within normal limits. 09:08 Abdomen/GI: Inspection: obese Bowel sounds: active, all quadrants, Palpation: soft, nontender. 19:34 ECG was reviewed by the Attending Physician. kdr Vital Signs: 09:09 BP 137 / 72; Pulse 86; Resp 20; Temp 98.7(O); Pulse Ox 97% on R/A; Weight 88.45 kg; em Pain 0/10; 09:56 BP 142 / 89; Pulse 74; Resp 16; Pulse Ox 99% on R/A; em 11:24 BP 147 / 75; Pulse 75; Resp 18; Pulse Ox 99% on R/A; Pain 0/10; em MDM: 10:54 Patient medically screened. kdr 16:52 Data reviewed: vital signs, nurses notes, lab test result(s). Counseling: I had a kdr detailed discussion with the patient and/or guardian regarding: the historical points, exam findings, and any diagnostic results supporting the discharge/admit diagnosis, lab results, the need for outpatient follow up. 04/16 09:07 Order name: Basic Metabolic Panel; Complete Time: 10:50 kdr 04/16 09:07 Order name: CBC with Diff; Complete Time: 10:50 kdr 04/16 09:07 Order name: LFT's; Complete Time: 10:50 kdr 04/16 09:07 Order name: Magnesium; Complete Time: 10:50 kdr 04/16 09:07 Order name: NT PRO-BNP; Complete Time: 10:50 [facility] 04/16 09:07 Order name: PT-INR; Complete Time: 10:50 [facility] 04/16 09:07 Order name: Troponin (emerg Dept Use Only); Complete Time: 10:50 kdr 04/16 09:07 Order name: XRAY Chest (1 view); Complete Time: 10:50 kdr 04/16 09:07 Order name: EKG; Complete Time: 09:08 kdr 04/16 09:07 Order name: Cardiac monitoring; Complete Time: 09:14 kdr 08 09:07 Order name: EKG - Nurse/Tech; Complete Time: 09:49 kdr 04/16 09:07 Order name: IV Saline Lock; Complete Time: 09:49 kdr 04/16 09:07 Order name: Labs collected and sent; Complete Time: 09:14 kdr 04/16 09:07 Order name: O2 Per Protocol; Complete Time: 09:14 kdr 04/16 09:07 Order name: O2 Sat Monitoring; Complete Time: 09:14 kdr EC:34 Rate is 82 beats/min. Rhythm is regular, Paced with No ectopy. QRS [place] is Normal. CA kdr interval is normal. QRS interval is normal. Clinical impression: No evidence of ischemia and Paced. Administered Medications: No medications were administered Disposition: 04/16/20 10:54 Discharged to Home. Impression: Weakness, Chronic fatigue, unspecified, Constipation. - Condition is Stable. - Discharge Instructions: Fatigue, Constipation, Adult, Kdyh-[id number], Weakness, Tyci-[id number]-Ibwp. - Prescriptions for Dulcolax (bisacodyl) 5 mg Oral tablet,delayed release (DR/EC) - take 2 tablet by ORAL route once daily; 20 tablet. magnesium citrate - take 1 bottle by ORAL route every 8-12 hours As needed; 4 bottle. - Medication Reconciliation Form, Thank You Letter form. - Follow up: Private Physician; When: 2 - 3 days; Reason: If symptoms return, Further diagnostic work-up, Recheck today's complaints, Continuance of care, Re-evaluation by your physician. - Problem is new. - Symptoms are unchanged. Signatures: Dispatcher [employer] EDRaudel Diez MD MD kdr Tra Phillip RN RN em Corrections: (The following items were deleted from the chart) 11:19 10:54 04/16/2020 10:54 Discharged to Home. Impression: Weakness; Chronic fatigue, kdr unspecified. Condition is Stable. Forms are Medication Reconciliation Form, Thank You Letter, Antibiotic Education, Prescription Opioid Use. Follow up: Private Physician; When: 2 - 3 days; Reason: If symptoms return, Further diagnostic work-up, Recheck today's complaints, Continuance of care, Re-evaluation by your physician. Problem is new. Symptoms are unchanged. kdr 11:36 11:19 04/16/2020 10:54 Discharged to Home. Impression: Weakness; Chronic fatigue, em unspecified; Constipation. Condition is Stable. Discharge Instructions: Fatigue, Weakness, [id number]. Forms are Medication Reconciliation Form, Thank You Letter. Follow up: Private Physician; When: 2 - 3 days; Reason: If symptoms return, Further diagnostic work-up, Recheck today's complaints, Continuance of care, Re-evaluation by your physician. Problem is new. Symptoms are unchanged. kdr
[2020-04-16 11:44] VITALS: TEMP 98.7
[2020-04-16] MEDS ORDERED: ZIPRASIDONE MESYLA 20 MG/VIAL IM ONE (11:44)
[2020-04-16 11:45] VITALS: O2SAT 99
[2020-04-16] MEDS ORDERED: WATER FOR INJ,STERILE 10 ML ONE (11:45)
[2020-04-16 11:46] VITALS: BP 147/75
--- NOTE | 2020-04-17 08:43 | EKG ---
Test Date: 2020-04-16 Test Time: 09:35:38 Mat Linker: DANA MEASUREMENT RESULTS: Intervals: Rate: 82 WV: 288 QRSD: 168 QT: 448 QTc: 523 [place]: P: WV: 288 QRS: -85 T: 77 INTERPRETIVE STATEMENTS: Electronic ventricular pacemaker Compared to ECG 12/24/2019 03:25:08 Atrial-sensed ventricular-paced complex(es) or rhythm no longer present Electronically Signed On 04-17-20 08:38:40 CDT by Giacomo Craft
== END 2020-04-16 11:36 | disposition home or self-care (01) ==
LOC: ER 08:47
DX: R53.82 Chronic fatigue, unspecified (principal); K59.00 Constipation, unspecified; I10 Essential (primary) hypertension; Z95.0 Presence of cardiac pacemaker; Z88.0 Allergy status to penicillin
CPT/HCPCS: 93005; 85025; 80048; 36415; 83735; 85610; 80076; 84484; 83880; 71045; 99284; J3486

== ENCOUNTER 2021-05-28 10:45 | Observation (INO) | payer OTHER ==
--- NOTE | 2021-05-28 11:18 | RAD REPORT ---
EXAM DESCRIPTION: RAD - Chest Single View - 05/28/2021 11:01 am CLINICAL HISTORY: COVID, hypoxemia COMPARISON: Chest Single View dated 04/16/2020; Chest Single View dated 12/24/2019; Chest Single View dated 05/10/2019; Chest Single View dated 02/20/2018 FINDINGS: Lines: Pacemaker. Lungs: No evidence of edema or pneumonia. Pleural: No significant pleural effusions or pneumothorax. Cardiac: The heart size is within normal limits. Bones: No acute fractures. Other: IMPRESSION: No acute cardiopulmonary disease.
--- NOTE | 2021-05-28 11:27 | EDPHYS ---
Physician Documentation [facility] Name: Joe oHlt Age: 86 yrs Sex: Male : 1935 Arrival Date: 05/28/2021 Time: 10:46 Bed 7 Private MD: ED Physician Chicho Griffith HPI: 05/28 11:00 This 86 yrs old Male presents to ER via EMS with complaints of Shortness of rn breath. 11:03 The patient has shortness of breath at rest, with light activity. Onset: The rn symptoms/episode began/occurred at an unknown time. Duration: The symptoms are intermittent. The patient's shortness of breath is aggravated by exertion, light activity. Associated signs and symptoms: Pertinent positives: non-productive cough, Pertinent negatives: chest pain, fever, hemoptysis. Severity of symptoms: At their worst the symptoms were mild in the emergency department the symptoms are unchanged. The patient has not experienced similar symptoms in the past. The patient has been recently seen by a physician:. Patient recently admitted to [email or web address]] for Covid pneumonia, sent home recently, no oxygen at home, PCP Dr. Davalos spoke with patient this morning and recommended calling 911 for further evaluation as patient seemed short of breath and did not have oxygen at home. Patient states feels okay with intermittent mild shortness of breath.. Historical: - Allergies: 10:48 PENICILLINS; ll1 - PMHx: 10:48 Hypertension; ll1 - PSHx: 10:48 pacemaker; ll1 - Immunization history:: Adult Immunizations up to date, Client reports receiving the 2nd dose of the Covid vaccine. - Social history:: Smoking status: Patient/guardian denies using tobacco, the patient reports quitting approximately 45 years ago. - Family history:: not pertinent. - Hospitalizations: : Patient was recently seen at [facility]. ROS: 11:03 Constitutional: Negative for fever, chills, and weight loss, Eyes: Negative for injury, rn pain, redness, and discharge, Neck: Negative for injury, pain, and swelling, Cardiovascular: Negative for chest pain, palpitations, and edema, Respiratory: Positive for cough and shortness of breath Abdomen/GI: Negative for abdominal pain, nausea, vomiting, diarrhea, and constipation, Back: Negative for injury and pain, : Negative for injury, bleeding, discharge, and swelling, MS/Extremity: Negative for injury and deformity, Skin: Negative for injury, rash, and discoloration, Neuro: Positive for generalized weakness Exam: 11:03 Constitutional: This is a well developed, well nourished patient who is awake, alert, rn and in no acute distress. Head/Face: Normocephalic, atraumatic. Eyes: Periorbital areas with no swelling, redness, or edema. ENT: Dry mucous membranes, no stridor Cardiovascular: Regular rate and rhythm. No pulse deficits. Respiratory: Mild tachypnea, no retractions Abdomen/GI: Soft, non-tender Skin: Warm, dry MS/ Extremity: Pulses equal, no cyanosis. Neuro: Awake and alert, GCS 15 Vital Signs: 10:49 BP 140 / 85; Pulse 66; Resp 20; Temp 97.7; Pulse Ox 98% ; Weight 77.56 kg; Height 4 ft. ll1 9 in. (144.78 cm); Pain 0/10; 11:15 BP 130 / 84; Pulse 76; Resp 20; Pulse Ox 97% on R/A; ll1 12:20 BP 120 / 70; Pulse 68; Resp 18; Pulse Ox 97% on R/A; ll1 13:05 BP 113 / 56; Pulse 58; Resp 18; Pulse Ox 98% ; ll1 14:35 BP 118 / 59; Pulse 60; Resp 21; Pulse Ox 97% on R/A; ll1 15:16 BP 129 / 57; Pulse 62; Resp 24; Pulse Ox 97% on R/A; ll1 17:30 BP 142 / 66; Pulse 58; Resp 26; Pulse Ox 97% ; ll1 10:49 Body Mass Index 37.00 (77.56 kg, 144.78 cm) ll1 MDM: 10:46 Patient medically screened. rn 11:23 Differential diagnosis: Urinary retention, prostate enlargement. rn 14:41 Data reviewed: vital signs, nurses notes, lab test result(s), EKG, radiologic studies, rn plain films. Data interpreted: electronic device monitor: rate is 60 beats/min, rhythm is normal sinus rhythm, regular, with no ectopy, Interpretation: normal rate, normal rhythm, Pulse oximetry: on room air is 96 %. Interpretation: acceptable. Counseling: I had a detailed discussion with the patient and/or guardian regarding: the historical points, exam findings, and any diagnostic results supporting the discharge/admit diagnosis, lab results, radiology results, the need for further work-up and treatment in the hospital. Response to treatment: the patient's symptoms have mildly improved after treatment, and as a result, I will admit patient. Admission orders: after a detailed discussion of the patient's condition and case, the admit orders are written by me. ED course: Consulted with Dr. Davalos regarding patient, Dr. Davalos requested patient is admitted overnight under observation status for tachypnea and recovering from Covid. No increase in oxygen requirement but shallow tachypnea.. 05/28 10:47 Order name: CBC with Diff rn 05/28 10:47 Order name: Basic Metabolic Panel; Complete Time: 12:44 rn 05/28 10:47 Order name: Procalcitonin; Complete Time: 12:44 rn 05/28 10:47 Order name: XRAY Chest (1 view); Complete Time: 11:21 rn 05/28 10:47 Order name: CBC with Automated Diff; Complete Time: 12:44 EDMS 05/28 12:00 Order name: CBC Smear Scan; Complete Time: 12:44 EDMS 05/28 10:47 Order name: IV Start; Complete Time: 10:53 rn 05/28 10:47 Order name: Cardiac monitoring; Complete Time: 10:52 rn 05/28 10:47 Order name: Oxygen Per Protocol; Complete Time: 10:52 rn 05/28 10:47 Order name: O2 Sat Monitoring; Complete Time: 10:53 rn 05/28 10:56 Order name: EKG; Complete Time: 10:56 ss 05/28 10:56 Order name: EKG - Nurse/Tech; Complete Time: 10:56 ss Administered Medications: 15:57 Drug: SOLU-Medrol (methylPrednisoLONE) 125 mg Route: IVP; Site: right antecubital; ll1 17:51 Follow up: Response: No adverse reaction; RASS: Alert and Calm (0) ll1 Disposition Summary: 05/28/21 14:42 Hospitalization Ordered Hospitalization Status: Observation rn Provider: Antwan Davalos rn Condition: Stable(05/28/21 14:42) rn Problem: an ongoing problem(05/28/21 14:42) rn Symptoms: have improved(05/28/21 14:42) rn Bed/Room Type: Standard rn Location: Telemetry/MedSurg (observation)(05/28/21 17:09) ma Room Assignment: 411(05/28/21 17:09) ma Diagnosis - Dyspnea, unspecified rn - SARS-associated coronavirus as the cause of diseases classified elsewhere rn Forms: - Medication Reconciliation Form rn - SBAR form rn Signatures: Dispatcher [employer] EDYadira Dorman, RN Chicho Vasquez MD MD rn Smirch, Shelby, RN ESPERANZA Jerome, Amando Clement mt, RN ESPERANZA ll1 Corrections: (The following items were deleted from the chart) 11: 11:00 The patient or guardian reports hyperglycemia, that was potentially precipitated rn by no particular event, rn 11:00 Onset: The symptoms/episode began/occurred at an unknown time. rn rn : 11:00 Associated signs and symptoms: Pertinent positives: diaphoresis, polydipsia, rn polyphagia, polyuria, Pertinent negatives: seizure activity, rn : 11:00 Current symptoms: In the emergency department the patient's symptoms have rn improved, rn : 11:00 The patient has not experienced similar symptoms in the past, rn rn : 11:00 Patient reports a few days of not feeling well, increased urination and thirst, rn no history of diabetes. EMS reports glucose of 600 with low blood pressure which is improved with IV hydration. Patient denies any recent illness but reports generalized fatigue and malaise with sweating.. rn 11: 11:00 This 86 yrs old Male presents to ER via EMS with complaints of rn Hyperglycemia, low blood pressure. rn : 11:00 Constitutional: Negative for fever, chills, and weight loss, Eyes: Negative for rn injury, pain, redness, and discharge, ENT: Negative for injury, pain, and discharge, Neck: Negative for injury, pain, and swelling, Cardiovascular: Negative for chest pain, palpitations, and edema, Respiratory: Negative for shortness of breath, cough, wheezing, and pleuritic chest pain, Abdomen/GI: Negative for abdominal pain, nausea, vomiting, diarrhea, and constipation, Back: Negative for injury and pain, : Positive for polyuria MS/Extremity: Negative for injury and deformity, Skin: Negative for injury, rash, and discoloration, Neuro: Negative for headache, numbness, tingling, and seizure, Endocrine: Positive for polyuria and polydipsia. rn Hospitalizations: No recent hospitalization is reported. rn rn : The patient has not recently seen a physician, esperanza rn : Data reviewed: vital signs, nurses notes, old medical records, and as a result, I rn will discharge patient, rn Counseling: I had a detailed discussion with the patient and/or guardian rn regarding: the historical points, exam findings, and any diagnostic results supporting the discharge/admit diagnosis, the need for outpatient follow up, to return to the emergency department if symptoms worsen or persist or if there are any questions or concerns that arise at home, rn Special discussion: I discussed with the patient/guardian in detail that at this rn point there is no indication for admission to the hospital. It is understood, however, that if the symptoms persist or worsen the patient needs to return immediately for re-evaluation. Based on the history and exam findings, there is no indication for further emergent testing or inpatient evaluation. I discussed with the patient/guardian the need to see the urologist for further evaluation of the symptoms. rn : ED course: Major catheter removed without any events, tolerated well, observed rn for an hour and a half afterwards and was able to urinate 200 cc without difficulty, good stream. Will DC home with urology follow-up as this is likely not the last time he is going to do with this. Discussed this with patient and understands.. 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
--- NOTE | 2021-05-28 11:27 | ER ---
Nurse's Notes [facility] Name: Joe Holt Age: 86 yrs Sex: Male : 1935 Arrival Date: 05/28/2021 Time: 10:46 Bed 7 Private MD: Diagnosis: Dyspnea, unspecified;SARS-associated coronavirus as the cause of diseases classified elsewhere Presentation: 05/28 10:49 Chief complaint: Patient states: Covid +, still weak. Had a fall with head injury that ll1 he was admitted for at [facility], released yesterday. Sent in for eval by Dr. Davalos. Still has weakness and SOB. Coronavirus screen: Vaccine status: Patient reports receiving the 2nd dose of the covid vaccine. Client denies travel out of the [place] in the last 14 days. cough unrelated to allergies, difficulty breathing, fatigue, muscle pain, shortness of breath, Client presents with at least one sign or symptom that may indicate coronavirus-19. Standard/surgical mask placed on the client. Ebola Screen: Patient denies travel to an Ebola-affected area in the 21 days before illness onset. Initial Sepsis Screen: Does the patient meet any 2 criteria? No. Patient's initial sepsis screen is negative. Does the patient have a suspected source of infection? Yes: Productive cough/pneumonia. Risk Assessment: Do you want to hurt yourself or someone else? Patient reports no desire to harm self or others. Onset of symptoms was May 08, 2021. 10:49 Method Of Arrival: EMS ll1 10:49 Acuity: JUDITH 3 ll1 Historical: - Allergies: 10:48 PENICILLINS; ll1 - PMHx: 10:48 Hypertension; ll1 - PSHx: 10:48 pacemaker; ll1 - Immunization history:: Adult Immunizations up to date, Client reports receiving the 2nd dose of the Covid vaccine. - Social history:: Smoking status: Patient/guardian denies using tobacco, the patient reports quitting approximately 45 years ago. - Family history:: not pertinent. - Hospitalizations: : Patient was recently seen at [facility]. Screenin:53 Abuse screen: Denies threats or abuse. Nutritional screening: No deficits noted. ll1 Tuberculosis screening: No symptoms or risk factors identified. Fall Risk Fall in past 12 months (25 points). IV access (20 points). Gait- Weak (10 pts.). Total Rahman Fall Scale indicates High Risk Score (45 or more points). Fall prevention measures have been instituted. Side Rails Up X 2 Frequent Obs/Assessments Occuring As available patient and family educated on Fall Prevention Program and Strategies. Assessment: 10:53 General: Appears in no apparent distress. Behavior is calm, cooperative, appropriate ll1 for age. Pain: Denies pain. Neuro: Level of Consciousness is awake, alert, obeys commands, Oriented to person, place, Edi Specialist are equal bilaterally Moves all extremities. Full function Gait is Speech is normal, Facial symmetry appears normal, Reports weakness. Cardiovascular: No deficits noted. Respiratory: Reports shortness of breath cough that is Airway is patent Trachea midline Respiratory effort is even, unlabored, Respiratory pattern is regular, symmetrical, Breath sounds are diminished bilaterally. GI: No deficits noted. 12:00 Reassessment: No changes from previously documented assessment. Patient and/or family ll1 updated on plan of care and expected duration. Pain level reassessed. Patient is alert, oriented x 3, equal unlabored respirations, skin warm/dry/pink. 13:00 Reassessment: No changes from previously documented assessment. Patient and/or family ll1 updated on plan of care and expected duration. Pain level reassessed. 14:00 Reassessment: No changes from previously documented assessment. Patient and/or family ll1 updated on plan of care and expected duration. Pain level reassessed. 15:00 Reassessment: No changes from previously documented assessment. Patient and/or family ll1 updated on plan of care and expected duration. Pain level reassessed. 15:30 Reassessment: and patient updated. Both are being admitted. Verbalized ll1 understanding. . 16:30 Reassessment: No changes from previously documented assessment. Patient and/or family ll1 updated on plan of care and expected duration. Pain level reassessed. Patient is alert, oriented x 3, equal unlabored respirations, skin warm/dry/pink. 17:31 Reassessment: No changes from previously documented assessment. Patient and/or family ll1 updated on plan of care and expected duration. Pain level reassessed. Patient is alert, oriented x 3, equal unlabored respirations, skin warm/dry/pink. Vital Signs: 10:49 BP 140 / 85; Pulse 66; Resp 20; Temp 97.7; Pulse Ox 98% ; Weight 77.56 kg; Height 4 ft. ll1 9 in. (144.78 cm); Pain 0/10; 11:15 BP 130 / 84; Pulse 76; Resp 20; Pulse Ox 97% on R/A; ll1 12:20 BP 120 / 70; Pulse 68; Resp 18; Pulse Ox 97% on R/A; ll1 13:05 BP 113 / 56; Pulse 58; Resp 18; Pulse Ox 98% ; ll1 14:35 BP 118 / 59; Pulse 60; Resp 21; Pulse Ox 97% on R/A; ll1 15:16 BP 129 / 57; Pulse 62; Resp 24; Pulse Ox 97% on R/A; ll1 17:30 BP 142 / 66; Pulse 58; Resp 26; Pulse Ox 97% ; ll1 10:49 Body Mass Index 37.00 (77.56 kg, 144.78 cm) ll1 ED Course: 10:46 Patient arrived in ED. rn 10:46 Chicho Griffith MD is Attending Physician. rn 10:48 Amando Castanon, ESPERANZA is Primary Nurse. ll1 10:48 Arm band placed on Patient placed in an exam room, on a stretcher, in a wheelchair. ll1 10:52 Triage completed. ll1 10:53 Patient has correct armband on for positive identification. Bed in low position. Call 1 light in reach. Side rails up X 1. flame cutting supervisor on. Pulse ox on. NIBP on. 11:02 XRAY Chest (1 view) In Process Unspecified. EDMS 11:15 Inserted saline lock: 22 gauge in right forearm, using aseptic technique. ,using ss aseptic technique. Insertion by Kira, [facility] Blood collected. 14:42 Antwan Davalos MD is Hospitalizing Provider. rn 17:18 Awaiting: Unable to give report at this time. Was asked to call back when they figure ll1 out which RN is taking this patient. 17:28 Awaiting: unable to give report at this time. States they need to talk to the house 1 mud analysis supervisor before taking this patient. Will have the nurse call me back for report. 17:51 No provider procedures requiring assistance completed. Patient admitted, IV remains in ll1 place. Administered Medications: 15:57 Drug: SOLU-Medrol (methylPrednisoLONE) 125 mg Route: IVP; Site: right antecubital; ll1 17:51 Follow up: Response: No adverse reaction; RASS: Alert and Calm (0) ll1 Outcome: 11:26 Discharge ordered by . rn 14:42 Decision to Hospitalize by Provider. rn 17:51 Admitted to Tele accompanied by tech, via stretcher, room 411, with chart, Report ll1 called to Sangeetha Travis RN on 4th. 17:51 Condition: stable 17:51 Instructed on the need for admit. 17:52 Patient left the ED. ll1 Signatures: Dispatcher [employer] EDMS Chicho Griffith MD MD rn Smirch, Shelby, RN RN ss Lewis, Lynsay, RN RN ll1 Corrections: (The following items were deleted from the chart) 11:05 11:00 Hospitalizations: No recent hospitalization is reported. esperanza lyn
[2021-05-28 11:30] LABS: Absolute Lymphocytes (CBC) 1.7 K/uL (0.7-4.9); Basophils % 0.4 % (0-1.3); Hematocrit 46.9 % (39.6-49.0); Lymphocytes % 16.7 % (15.3-44.8); MPV 9.9 fL (7.6-11.3); RBC Red Blood Cell Count 5.09 M/uL (4.33-5.43)
[2021-05-28 12:00] LABS: Blood Morphology Comment NOT SEEN (NOT SEEN); Platelet Estimate DECR; White Blood Cell Scan OK (OK)
[2021-05-28 12:04] LABS: Potassium 4.3 mmol/L (3.5-5.1)
[2021-05-28] MEDS ORDERED: METHYLPREDNISOLONE 125 MG INJ ONE (16:17)
[2021-05-28 16:22] VITALS: BMI 37.0
--- NOTE | 2021-05-28 17:16 | P.HP ---
Certification for Inpatient Patient admitted to: Inpatient With expected LOS: >2 Midnights Patient will require the following post-hospital care: None Practitioner: I am a practitioner with admitting privileges, knowledge of patient current condition, hospital course, and medical plan of care. 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 He has a history of severe spinal kyphosis. He was admitted to [facility] this past Tuesday and was discharged home a few days ago. This morning his and primary caregiver called the office. She was coughing and sob. Stating that Mr Holt would get short of breath on exertion. The patient did not have oxygen or a pulse oximeter. Did not have any medications other than cough syrup per the . She was told to call ems and come to the ER. He was found to have a normal chest xray. He is a bit tachypnic. Stating well on room air. However his is doing poorly. Will admit the patient for night of observation. Allergies onion Allergy (Verified 12/24/19 08:39) Hives/Rash Penicillins Allergy (Verified 12/24/19 05:04) Hives/Rash Home Medications: Atorvastatin Calcium 40 mg PO DAILY 12/24/19 Amlodipine [Norvasc*] 5 mg PO BID #60 tab 12/26/19 Polyethylene Glycol 3350 [Miralax] 17 gm PO DAILY #30 powd.pack 12/26/19 - Past Medical/Surgical History Has patient received pneumonia vaccine in the past: Yes Diabetic: No -: HTN -: Hyperlipidemia -: Obesity -: Murmur -: Bradycardia -: bilateral cataract sx. -: hernia repair -: ulcer repair x 2 Psychosocial/ Personal History: . - Social History Smoking Status: Former smoker Alcohol use: No CD- Drugs: No Caffeine use: Yes Review of Systems 10-point ROS is otherwise unremarkable Respiratory: SOB with Excertion Physical Examination - Vital Signs Temperature: 98.3 F Blood Pressure: 134/68 Pulse: 64 Respirations: 22 Pulse Ox (%): 97 - Physical Exam General: Alert, In no apparent distress HEENT: Atraumatic, PERRLA, Mucous membr. moist/pink, EOMI, Sclerae nonicteric Neck: Supple, 2+ carotid pulse no bruit, No LAD, Without JVD or thyroid abnormality Respiratory: Crackles/rales, Expiratory wheezes Cardiovascular: Regular rate/rhythm, Normal S1 S2 Gastrointestinal: Normal bowel sounds, No tenderness Musculoskeletal: No tenderness Integumentary: No rashes Neurological: Normal gait, Normal speech, Normal strength at 5/5 x4 extr, Normal tone, Normal affect Lymphatics: No axilla or inguinal lymphadenopathy - Studies Laboratory Data (last 24 hrs) 05/28/21 11:12: Sodium 138, Potassium 4.3, BUN 29 H, Creatinine 0.98, Glucose 135 H 05/28/21 11:12: WBC 10.30, Hgb 15.6, Hct 46.9, Plt Count 140 L Assessment and Plan - Problems (Diagnosis) (1) COVID-19 Current Visit: Yes Status: Acute Plan: will admit the patient to the hospital. Will start him on steroids and vitamin protochol. Will start him on eliquis for prophylaxis. He should be on this for a month. Will have the patient seen by egg worker. He needs home oxygen and pulse oximeter. As he and his have no family or internet. Would consult dialysis social worker for home health, home o2. See if home health can deliver them a pulse oximeter. (2) Hyperlipidemia Current Visit: No Status: Acute Plan: will start him on a regular atorvastatin. Especially as he has covid. Should be on it for a month. Qualifiers: Hyperlipidemia type: mixed hyperlipidemia Qualified Code(s): E78.2 - Mixed hyperlipidemia (3) Hypertension Current Visit: No Status: Acute Plan: restart home amlodipine. Will adjust as necessary. Discharge Plan: Home Plan to discharge in: 24 Hours - Advance Directives Does patient have a Living Will: No Does patient have a Durable POA for Healthcare: No - Code Status/Comfort Care Code Status Assessed: No Code Status: Full Code Physician Review: Patient Assessed, Agree with Above Assessment and Plan Critical Care: No Time Spent Managing Pts Care (In Minutes): 70
[2021-05-28] MEDS: APIXABAN 5 MG TABLET PO SCH (20:39)
[2021-05-28] MEDS: AMLODIPINE 5 MG TAB PO SCH (20:39)
[2021-05-28] MEDS: METHYLPREDNISOLONE 40 MG INJ IV SCH (20:39)
[2021-05-28] MEDS ORDERED: METHYLPRED NA SUC 40 MG in NA CHLORIDE 0.9% 100 ML IV SCH (21:00)
[2021-05-29 07:03] LABS: Absolute Lymphocytes (CBC) 1.1 K/uL (0.7-4.9); Basophils % 0.1 % (0-1.3); Hematocrit 43.9 % (39.6-49.0); Lymphocytes % 19.8 % (15.3-44.8); RBC Red Blood Cell Count 4.77 M/uL (4.33-5.43)
[2021-05-29 07:19] LABS: Albumin 3.1 g/dL (3.4-5.0); Bilirubin Total 0.5 mg/dL (0.2-1.0); Potassium 4.3 mmol/L (3.5-5.1); Protein, Total 6.8 g/dL (6.4-8.2)
[2021-05-29] MEDS ORDERED: VITAMIN D 5,000 UNIT CAP PO SCH (09:00)
[2021-05-29] MEDS ORDERED: POLYETHYL GLY 3350 17 GM/DOSE PO SCH (09:00)
[2021-05-29] MEDS ORDERED: ASCORBIC ACID 500 MG TABLET PO SCH (09:00)
[2021-05-29] MEDS ORDERED: ZINC SULFATE 220 MG CAP PO SCH (09:00)
[2021-05-29] MEDS ORDERED: ATORVASTATIN 40 MG TAB PO SCH (09:00)
[2021-05-29] MEDS: METHYLPREDNISOLONE 40 MG INJ IV SCH (09:23)
[2021-05-29] MEDS: APIXABAN 5 MG TABLET PO SCH (09:24)
[2021-05-29] MEDS: AMLODIPINE 5 MG TAB PO SCH (09:24)
--- NOTE | 2021-05-29 10:23 | P.DS ---
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 He has a history of severe spinal kyphosis. He was admitted to [facility] this past Tuesday and was discharged home a few days ago. This morning his and primary caregiver called the office. She was coughing and sob. Stating that Mr Holt would get short of breath on exertion. The patient did not have oxygen or a pulse oximeter. Did not have any medications other than cough syrup per the . She was told to call ems and come to the ER. He was found to have a normal chest xray. He is a bit tachypnic. Stating well on room air. However his is doing poorly. Will admit the patient for night of observation. Hospital Course: Patient was very stable during admission. However his was also admitted. Both patients are doing well. Will discharge them home. Need home health and home o2. Will have them follow up with phone conferences on Tuesday Vital Signs/Physical Exam: Temp Pulse Resp BP Pulse Ox 97.3 F 71 18 152/72 H 97 05/29/21 04:00 05/29/21 09:24 05/29/21 04:00 05/29/21 09:24 05/29/21 04:00 General: Alert, In no apparent distress HEENT: Atraumatic, PERRLA, EOMI Neck: Supple, JVD not distended Respiratory: Clear to auscultation bilaterally, Normal air movement Cardiovascular: Regular rate/rhythm, Normal S1 S2 Gastrointestinal: Normal bowel sounds, No tenderness Musculoskeletal: No tenderness Integumentary: No rashes Neurological: Normal speech, Normal tone, Normal affect Lymphatics: No axilla or inguinal lymphadenopathy Laboratory Data at Discharge: WBC 5.60 K/uL (4.3-10.9) D 05/29/21 06:35 Hgb 14.7 g/dL (13.6-17.9) 05/29/21 06:35 Hct 43.9 % (39.6-49.0) 05/29/21 06:35 Plt Count 143 K/uL (152-406) L 05/29/21 06:35 Sodium 140 mmol/L (136-145) 05/29/21 06:35 Potassium 4.3 mmol/L (3.5-5.1) 05/29/21 06:35 BUN 31 mg/dL (7-18) H 05/29/21 06:35 Creatinine 0.83 mg/dL (0.55-1.3) 05/29/21 06:35 Glucose 179 mg/dL (74-106) H 05/29/21 06:35 Total Bilirubin 0.5 mg/dL (0.2-1.0) 05/29/21 06:35 AST 51 U/L (15-37) H 05/29/21 06:35 ALT 57 U/L (12-78) 05/29/21 06:35 Alkaline Phosphatase 53 U/L (45-117) 05/29/21 06:35 Home Medications: Amlodipine [Norvasc*] 5 mg PO BID #60 tab 12/26/19 Polyethylene Glycol 3350 [Miralax] 17 gm PO DAILY #30 powd.pack 12/26/19 Apixaban [Eliquis] 5 mg PO BID 30 Days #30 tablet 05/29/21 Ascorbic Acid [Vitamin C*] 500 mg PO DAILY 30 Days #30 tablet 05/29/21 Atorvastatin Calcium 40 mg PO BEDTIME 30 Days #30 cap 05/29/21 Cholecalciferol (Vitamin D3) [Vitamin D 5,000 IU Cap*] 5,000 unit PO DAILY 30 Days #30 cap 05/29/21 Dexamethasone [Decadron] 4 mg PO DAILY 10 Days #10 tablet 05/29/21 Zinc Sulfate [Zinc Sulfate*] 220 mg PO DAILY 30 Days #30 cap 05/29/21 New Medications: Atorvastatin Calcium 40 mg PO BEDTIME 30 Days #30 cap Dexamethasone [Decadron] 4 mg PO DAILY 10 Days #10 tablet Apixaban [Eliquis] 5 mg PO BID 30 Days #30 tablet Ascorbic Acid [Vitamin C*] 500 mg PO DAILY 30 Days #30 tablet Cholecalciferol (Vitamin D3) [Vitamin D 5,000 IU Cap*] 5,000 unit PO DAILY 30 Days #30 cap Zinc Sulfate [Zinc Sulfate*] 220 mg PO DAILY 30 Days #30 cap Diet: Regular Activity: Ad massiel Followup: Antwan Davalos MD [Primary Care Provider] - 06/01/21 Time spent managing pt's care (in minutes): 30
--- NOTE | 2021-05-29 10:43 | EKG ---
Test Date: 2021-05-28 Test Time: 11:00:04 Environmental Project Manager: GAMALIEL MEASUREMENT RESULTS: Intervals: Rate: 68 IL: 188 QRSD: 168 QT: 488 QTc: 518 [place]: P: -3 IL: 188 QRS: -81 T: 78 INTERPRETIVE STATEMENTS: Electronic ventricular pacemaker Compared to ECG 04/16/2020 09:35:38 No significant changes Electronically Signed On 05-29-21 10:40:09 CDT by Giacomo Craft
[2021-05-29 12:49] VITALS: BP 156/79; TEMP 97.7; O2SAT 95
== END 2021-05-29 17:25 | disposition home health service (06) ==
LOC: SUPCPDRO 10:45 → ER 10:45 → ERHOLD 15:46 → 4TH 17:42
PROVIDERS: ADMIT Internal Medicine; ATTEND Internal Medicine
DX: U07.1 COVID-19 (principal); I10 Essential (primary) hypertension; E78.2 Mixed hyperlipidemia; R06.82 Tachypnea, not elsewhere classified; R00.1 Bradycardia, unspecified; R01.1 Cardiac murmur, unspecified; M40.209 Unspecified kyphosis, site unspecified; E66.9 Obesity, unspecified; Z68.37 Body mass index [BMI] 37.0-37.9, adult; Z95.0 Presence of cardiac pacemaker; Z87.891 Personal history of nicotine dependence; Z88.0 Allergy status to penicillin; Z91.018 Allergy to other foods
CPT/HCPCS: 93005; 85025 ×2; 80048; 36415; 80053; 84145; 71045; 94010 ×2; 94760; 96374; 99285; J2930; J2920 ×2; G0378 ×3

== ENCOUNTER 2023-01-09 16:47 | Inpatient (IN) | payer OTHER ==
--- OUTSIDE RECORDS SUMMARY | 2023-01-09 16:50 | XMS REPORT | Continuity of Care Document ---
:[address] [facility] t Address [address] [place] [address] Care Team Providers Name Role Phone Antwan Davalos Primary Care Physician Antwan Davalos Attending Clinician Unavailable Shayy Jade RN Attending Clinician Unavailable Tran Navarrete Attending Clinician Makro Rivas MD Attending Clinician ASHLIE BRIZUELA Attending Clinician Unavailable STEPHANIE JOSEPH Attending Clinician Unavailable Tk Sin Attending Clinician SUZI FIGUEROA Attending Clinician Unavailable SUZI FIGUEROA Attending Clinician Unavailable Pc, Adc Vascular Room 1 - Attending Clinician Unavailable Marko Rivas MD Admitting Clinician Payers Payer Name Policy Type Policy Number Effective Date Expiration Date S valerie [facility] DUAL [id number] 2020 COMP HMO D SNP 00:00:00 [place] [id number] 2020 Common HEALTHCARE DUAL 00:00:00 Spirit - [facility] PAT CORRALES [facility] [id number] 2019 PLUS 00:00:00 Problems Condition Condition Condition Status Onset Resolution Last Treating Co mments Source Name Details Category Date Date Treatment Clinician Date 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 00:00: [place] stenosis stenosis 00 Medica l Branch Pneumonia Pneumonia Disease Active Uni vers due to due to 05-26 ity of COVID-19 COVID-19 00:00: [place] virus virus 00 Medical Branch Troponin I Troponin I Disease Active U nivers above above 05-26 [place] range 00 [place] Elevated Elevated Disease Active Unive rs brain brain 05-26 ity of nat[place] c peptide c peptide 00 Medi jose (BNP) (BNP) Branch level level Morbid Morbid Disease Active Univers obesity obesity 05-26 ity of 00:00: [place] 00 Medical Branch Acute Acute Disease Active Univers hypoxemic hypoxemic 05-25 [place] of respir[place] failure y failure 00 Medi jose due to due to Branch COVID-19 COVID-19 Claudicati Claudicati Problem C ommon on on [facility] Edema Edema Problem Common [facility] Obesity Obesity Problem Common [facility] Dizziness Problem Active 2020-04-24 Me moria (finding) Dizziness 21:34:13 l (finding) Vinay Active Problem 04/24/2020 [facility] Incontinen Incontinen Problem C ommon ce of ce of [facility] urine urine [facility] Cardiac Pacemaker Problem Commo n pacemaker Spirit in situ [facility] Hypertensi Hypertensi Problem C ommon on on [facility] [id number] Other Problem Common chronic Spirit pain [facility] [id number] Chronic Problem Commo n diastolic Spirit congestive [facility] heart [facility] Mixed Hyperlipem Problem Commo n hyperlipid ia, mixed Spi rit emia - [facility] Pain Chronic Problem Common generalize Spirit d pain - [facility] 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 - [facility] 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 [facility] - [facility] Degenerati Degenerati Problem C ommon on of on of Spirit lumbosacra lumbosacra - CHI l l St interverte interverte Rina kes bral disc bral disc [facility] Headache Headache Problem Active 2020-04-24 Memoria (finding) (finding) 21:34:13 l Active Vinay Problem 04/24/2020 [facility] 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, Spirit multiple multiple - [facility] joints sites [facility] [id number] 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, - [facility]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) [facility] [id number] 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) [facility] both [facility] [id number] Erectile Problem Comm on dysfunctio Spirit n, - CHI unspecifie St d erectile [facility] dysfunctio [facility] type Center [id number] BPH loc w Problem Com mon urin Spirit obs/LUTS [facility] [id number] BPH loc Problem Commo n w/o ur Spirit obs/LUTS [facility] [id number] OAB Problem Common (overactiv Spirit e bladder) - [facility] Murmur Murmur Problem Common [facility] [id number] Urge Problem Common incontinen Spirit ce [facility] Gastroesop Gastroesop Problem C ommon hageal hageal Spirit reflux reflux - CHI disease disease [facility] Hyperlipid Hyperlipi Problem Active 2020-04-24 Memoria emia demia 21:34:13 l (disorder) (disorder) He rmann Active Problem 04/24/2020 [facility] Aortic Aortic Problem Common valve valve [facility] stenosis stenosis - [facility] [id number] 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 [facility] [id number] Frequent Problem Comm on falls Spirit [facility] Benign BPH Problem Common prostatic (benign Spirit hyperplasi prostatic - C HI a hyperplasi [facility] Allergies, Adverse Reactions, Alerts Allergy Allergy Status Severity Reaction(s) Onset Inactive Treating Comm ents Source Name Type Date Date Clinician No Known No Known Active Memori a Medicati Medicati l on on Vinay Allergie Allergie s s NO KNOWN Drug Active Univers ALLERGIE Class ity of S [facility] atorvast atorvast Active Unknown Commo n atin atin Spirit - [facility] Social History Social Habit Start Date Stop Date Quantity Comments Source Exposure to Not sure [facility] SARS-CoV-2 [facility] (event) [place] Sex Assigned At Common Sp ash - [facility] History of Common Spirit - Tobacco Use [facility] Social History 2020-02-19 2020-02-[address] [facility] 15:56:39 15:56:39 Alcohol intake 2019-10-23 2019-10-23 Ex-drinker [facility] 00:00:00 00:00:00 (finding) [facility] Smoking Status Start Date Stop Date Source Former Smoker 2022-09-22 00:00:00 2022-09-22 00:00:00 Common S pirit - [facility] Medications Ordered Filled Start Stop Current Ordering Indication Dosage Frequency Signature Comments Components Source Medication Medication Date Date Medication? Clinician (SIG) Name Name Trospium Trospium 2022- No 1{table QD Trospium Chloride 20 Chloride 20 09-22 t_at_be Chloride MG MG 00:00: 00:00 dtime_o 20 MG 00 :00 n_an_em pty_sto mach} Proscar 5 Proscar 5 2022- No 1{table QD Proscar 5 MG MG 04-28 t} MG 00:00: 00:00 00 :00 Flomax 0.4 Flomax 0.4 2022- No 1{capsu QD Flomax 0.4 MG MG 04-28 le_at_b MG 00:00: 00:00 edtime} 00 :00 Proscar 5 Proscar 5 2022- No 1{table QD Proscar 5 MG MG 04-28 t} MG 00:00: 00:00 00 :00 Flomax 0.4 Flomax 0.4 2022- No 1{capsu QD Flomax 0.4 MG MG 04-28 le_at_b MG 00:00: 00:00 edtime} 00 :00 zinc Yes [id number] 220mg Take 1 Unive rs sulfate 50 - capsule by ity of mg zinc 00:00: mouth [place] (220 mg) 00 daily. Medical capsule Branch cholecalcif Yes [id number] 1000U Take 1 Univers caleb, -30 tablet by ity of vitamin D3, 00:00: mouth [place] 25 mcg 00 daily. Medical (1,000 Branch unit) tablet acetaminoph Yes 650mg Take 650 U nivers en (TYLENOL 9-29 mg by ity of ARTHRITIS 19:59: mouth [place] PAIN ORAL) 00 every 8 Medica l (eight) Branch hours. amLODIPine Yes 5mg Take 5 mg Un dawson 5 mg tablet 05-27 by mouth ity of 19:59: daily. Medical Branch tamsulosin Yes Take by Univ ers 0.4 mg 24 05-27 mouth ity of hr capsule 19:59: daily. Medical Branch tolterodine Yes 2mg Take 2 mg U nivers LA 2 mg 24 05-27 by mouth ity o f hr capsule 19:59: at [place] 00 bedtime. Medical Branch aspirin Yes 81mg Take 81 mg Univ ers (STU 05-27 by mouth ity of CHEWABLE 19:59: daily. [place] ASPIRIN) 81 00 Medical mg chewable Branch tablet ascorbic Yes [id number] 500mg Take 1 U nivers acid, - tablet by ity of vitamin C, 00:00: mouth 2 [place] 500 mg 00 (two) Medical tablet times Branch daily. dexAMETHaso 2020- No [id number] 6mg Take 1 Univers ne 6 mg 05-27 tablet by ity of tablet 00:00: 04:59 mouth [place] 00 :00 daily for Medical 7 days. Branch codeine-gua 2020- No [id number] 10mL Take 10 mL Univers ifenesin - 10-07 by mouth ity of 10-100 mg/5 00:00: 04:59 every 6 [place] mL oral 00 :00 (six) Medical solution hours as Branch needed for Cough for up to 7 days. Indication s: acute pain Amlodipine 2020-0 Yes 5 mg, PO, Me moria 6-23 Daily, 0 l 15:44: Refill(s) [place] 00 rosuvastati 2020-0 Yes 0 Memori a n 6- Refill(s) l 15:44: Vinay 00 Amlodipine 2020-0 Yes 5 mg, PO, Me moria 6-23 Daily, 0 l 15:44: Refill(s) rosuvastati 2020-0 Yes 0 Memori a n 6- Refill(s) l 15:44: Vinay 00 Tylenol 325 Tylenol 325 No 1{table 6xD Tylenol MG MG t_as_ne 325 MG eded} Prevnar 13 Prevnar 13 No Prev 13 - - - Pantoprazol Pantoprazol No 1{table QD Pantoprazo e Sodium 40 e Sodium 40 t} le Sodium MG MG 40 MG Aspirin 81 Aspirin 81 No 1{table QD Aspirin 81 81 MG 81 MG t} 81 MG amLODIPine amLODIPine No QD amLODIPine Besylate 5 Besylate 5 Besylate 5 MG MG MG Boostrix Boostrix No Boostrix 5-2.5-18.5 5-2.5-18.5 5-2.5-18.5 Aspirin 81 Aspirin 81 No 1{table QD Aspirin 81 81 MG 81 MG t} 81 MG Boostrix Boostrix No Boostrix 5-2.5-18.5 5-2.5-18.5 5-2.5-18.5 Prevnar 13 Prevnar 13 No Prevnar 13 - - - amLODIPine amLODIPine No QD amLODIPine Besylate 5 Besylate 5 Besylate 5 MG MG MG Pantoprazol Pantoprazol No 1{table QD Pantoprazo e Sodium 40 e Sodium 40 t} le Sodium MG MG 40 MG Fluzone Fluzone No Fluzone High-Dose High-Dose High-Dose 0.5 ML 0.5 ML 0.5 ML traMADol traMADol No 1{table QD traMADol HCl 50 MG HCl 50 MG t_as_ne HCl 50 MG eded} Tylenol 325 Tylenol 325 No 1{table 6xD Tylenol MG MG t_as_ne 325 MG eded} Boostrix Boostrix No Boostrix 5-2.5-18.5 5-2.5-18.5 5-2.5-18.5 Pantoprazol Pantoprazol No 1{table QD Pantoprazo e Sodium 40 e Sodium 40 t} le Sodium MG MG 40 MG Aspirin 81 Aspirin 81 No 1{table QD Aspirin 81 81 MG 81 MG t} 81 MG traMADol traMADol No 1{table QD traMADol HCl 50 MG HCl 50 MG t_as_ne HCl 50 MG eded} Tylenol 325 Tylenol 325 No 1{table 6xD Tylenol MG MG t_as_ne 325 MG eded} Fluzone Fluzone No Fluzone High-Dose High-Dose High-Dose 0.5 ML 0.5 ML 0.5 ML Prevnar 13 Prevnar 13 No Prevnar 13 - - - amLODIPine amLODIPine No QD amLODIPine Besylate 5 Besylate 5 Besylate 5 MG MG MG traMADol traMADol No 1{table QD traMADol HCl 50 MG HCl 50 MG t_as_ne HCl 50 MG eded} Fluzone Fluzone No Fluzone High-Dose High-Dose High-Dose 0.5 ML 0.5 ML 0.5 ML Immunizations Ordered Filled Immunization Date Status Comments [facility] e Immunization Name Name SARS-COV-2 COVID-19 2020-12-12 Completed Unive rsity of PFIZER VACCINE 00:00:00 [facility] SARS-COV-2 COVID-19 2020-11-21 Completed Unive rsity of PFIZER VACCINE 00:00:00 [facility] Vital Signs Vital Name Observation Time Observation Value Comments Source height 2022-09-22 14:15:00 59 [in_i] [facility] weight 2022-09-22 14:15:00 174 [lb_av] [facility] temperature 2022-09-22 14:15:00 97.4 [degF] [facility] bmi 2022-09-22 14:15:00 35.14 kg/m2 [facility] oximetry 2022-09-22 14:15:00 96 % [facility] respiratory rate 2022-09-22 14:15:00 18 /min Comm on [facility] blood pressure 2022-09-22 14:15:00 140 mm[Hg] Common [facility] - systolic [facility] blood pressure 2022-09-22 14:15:00 71 mm[Hg] Common [facility] - diastolic [facility] height 2022-04-21 15:30:00 59 [in_i] Common [facility] weight 2022-04-21 15:30:00 168.6 [lb_av] Common [facility] temperature 2022-04-21 15:30:00 98.4 [degF] [facility] bmi 2022-04-21 15:30:00 34.05 kg/m2 [facility] oximetry 2022-04-21 15:30:00 96 % [facility] respiratory rate 2022-04-21 15:30:00 16 /min Comm on [facility] blood pressure 2022-04-21 15:30:00 162 mm[Hg] Common [facility] - systolic [facility] blood pressure 2022-04-21 15:30:00 67 mm[Hg] Common [facility] diastolic [facility] Respitory Rate 2020-02-19 15:41:00 Diana al [place] Height 2020-02-19 15:41:00 144.78 cm [facility] Weight 2020-02-19 15:41:00 [facility] BMI Calculated 2020-02-19 15:41:00 Memori al [place] Systolic (mm Hg) 2020-02-19 15:41:00 Fredis rial [place] Diastolic (mm Hg) 2020-02-19 15:41:00 [facility] riyaal [place] Heart Rate 2020-02-19 15:41:00 [facility] Procedures This patient has no known procedures. Encounters Start End Encounter Admission Attending Care Care Encounter Source Date/Time Date/Time Type Type Clinicians Facility Department ID 2022-07-14 Outpatient Anoop, STLML[facility] [id number] Common 12:15:01 Antwan [facility] 2022-07-06 Outpatient Anoop, STLMLC STLMLC [id number] Common 08:35:04 Antwan [id number] Spirit - [facility] 2022-04-21 Outpatient Anoop, STLMLC STLMLC [id number] Common 14:56:02 Antwan [id number] Spirit - [facility] 2021-06-30 Emergency [facility] [id number] Univers 01:32:08 ity of [facility] 2022-09-22 2022-09-22 OFFICE STLMLC STLMLC [id number] Co mmon 00:00:00 00:00:00 VISIT Spirit ESTAB PT - CHI LEVEL 2 [facility] 2022-04-28 2022-04-28 (TEL) STLMLC STLMLC [id number] Co mmon 00:00:00 00:00:00 Spirit - [facility] 2022-04-21 2022-04-21 OFFICE STLMLC STLMLC [id number] Co mmon 00:00:00 00:00:00 VISIT Psychiatric PT - CHI LEVEL 5 [facility] 2021-05-28 2021-05-28 Transition JadeDarnell rodriguezmiguel ángel [id number] Univers 00:00:00 00:00:00 of Ngoc Kwong [id number] it y of [id number] [id number] [facility] 403 Branch 2021-05-25 2021-05-27 [facility] Tran Keller [facility] [id number] Univers 09:21:00 19:44:00 Encounter Marko Rivas [id number] ity [id number] [place] [id number] [facility] 080 Branch 2020-12-12 2020-12-12 Outpatient [facility] [id number] Univers 12:20:00 12:20:00 ity [facility] 2020-11-21 2020-11-21 Outpatient R GELACIO, [facility] [id number] Univers 12:20:00 12:20:00 ASHLIE ity [facility] 2020-08-26 2020-08-26 Outpatient R JAKE, [facility] [id number] Univers 14:40:00 14:40:00 STEPHANIE [facility] 2020-04-22 2020-04-22 Ambulatory nullFlavo MNA [id number] Memoria 16:15:00 16:15:00 Pre-Reg r Neurology 01 l [place] 2020-04-22 2020-04-22 Ambulatory nullFlavo MNA [id number] Memoria 16:15:00 16:15:00 Pre-Reg r Neurology 02 l [place] 2020-04-22 2020-04-22 Ambulatory nullFlavo MNA [id number] Memoria 16:15:00 16:15:00 Pre-Reg r Neurology 02 l [place] 2020-04-22 2020-04-22 Ambulatory nullFlavo MNA [id number] Memoria 16:15:00 16:15:00 Pre-Reg r Neurology 01 l [place] 2020-04-22 2020-04-22 Outpatient MHIE MHIE [id number] Memoria 11:15:00 11:15:00 01 alvin [place] 2020-04-22 2020-04-22 Outpatient MHIE MHIE [id number] Memoria 11:15:00 11:15:00 02 alvin [place] 2020-04-22 2020-04-22 Outpatient EUSEBIO SinMISCHER MHMISCHER [id number] 11:15:00 11:15:00 Tk 01 [facility] 2020-04-22 2020-04-22 Outpatient ESRA SinSCHER MHMISCHER [id number] 11:15:00 11:15:00 Tk 02 [facility] 2020-02-19 2020-02-20 Outpatient nullFlavo MNA [id number] Memoria 16:00:00 04:59:59 r Neurology 00 l [place] 2020-02-19 2020-02-20 Outpatient nullFlavo MNA [id number] Memoria 16:00:00 04:59:59 r Neurology 00 l [place] Vinay 2020-02-19 2020-02-19 Outpatient EUSEBIO SinMISCHER MHMISCHER [id number] 11:00:00 23:59:59 Tk 00 [facility] 2020-02-19 2020-02-19 Outpatient MHIE MHIE [id number] Memoria 11:00:00 11:00:00 00 alvin [place] 2019-11-13 2019-11-13 Outpatient SUZI ZARAGOZA [facility] [id number] Univers 13:00:00 13:00:00 SUZI FIGUEROA [facility] 2019-11-06 2019-11-06 Branch [employer], [facility] [id number] 14:18:06 15:47:49 Visit Vascular [place] [id number] [id number] Professio [id number] nal 059 [facility] 2019-11-06 2019-11-06 Outpatient Bruno [facility] [id number] Univers 14:00:00 14:00:00 [facility] 2019-10-23 2019-10-23 Outpatient SUZI ZARAGOZA [facility] [id number] Univers 13:00:00 13:00:00 SUZI FIGUEROA [facility] Results This patient has no known results.
--- NOTE | 2023-01-09 17:44 | RAD REPORT ---
EXAM DESCRIPTION: CT - Head Brain Wo Cont - 01/09/2023 5:20 pm CLINICAL HISTORY: WEAKNESS Headache, drowsiness COMPARISON: Head Brain Wo Cont dated 12/24/2019; Head Brain Wo Cont dated 10/03/2019 TECHNIQUE: All CT scans are performed using dose optimization technique as appropriate and may inclu de automated exposure control or mA/KV adjustment according to patient size. FINDINGS: No intracranial hemorrhage, hydrocephalus or extra-axial fluid collection.No areas of brai n edema or evidence of midline shift. The paranasal sinuses and mastoids are clear. The calvarium is intact. No intracranial hemorrhage, hydrocephalus or extra-axial fluid collection.Moderate diffuse brain atro phy.No areas of brain edema or evidence of midline shift. Small area of gliosis in the right cerebell ar hemisphere. IMPRESSION: No acute intracranial abnormality.
[2023-01-09 18:05] LABS: Absolute Lymphocytes (CBC) 1.2 K/uL (0.7-4.9); Hematocrit 31.9 % (39.6-49.0); Lymphocytes % 5.7 % (15.3-44.8); MCV 77.1 fL (80-100); MPV 8.7 fL (7.6-11.3); RBC Red Blood Cell Count 4.13 M/uL (4.33-5.43)
[2023-01-09 18:09] LABS: Protime INR 1.11
--- NOTE | 2023-01-09 18:22 | RAD REPORT ---
EXAM DESCRIPTION: RAD - Chest Single View - 01/09/2023 6:05 pm CLINICAL HISTORY: weakness Chest pain. COMPARISON: Chest Single View dated 05/28/2021; Chest Single View dated 04/16/2020; Chest Single View dated 12/24/2019; Chest Single View dated 05/10/2019 FINDINGS: Portable technique limits examination quality. Mild to moderate pulmonary edema is seen. The heart is mildly enlarged in size. No displaced fracture s.Dual lead pacer device is present. IMPRESSION: Mild to moderate CHF.
[2023-01-09 18:23] LABS: Albumin 3.1 g/dL (3.4-5.0); Bilirubin Direct 0.2 mg/dL (0-0.2); Bilirubin Indirect, Calculated 0.4 mg/dL (0.2-0.8); Bilirubin Total 0.6 mg/dL (0.2-1.0); Magnesium 1.9 mg/dL (1.6-2.4); Potassium 3.9 mEq/L (3.5-5.1); Protein, Total 6.9 g/dL (6.4-8.2); Troponin High Sensitivity 25.7 pg/mL (<58.9)
[2023-01-09 18:47] LABS: Blood Morphology Comment NOT SEEN (NOT SEEN); Platelet Estimate ADEQ
--- NOTE | 2023-01-09 19:28 | RAD REPORT ---
EXAM DESCRIPTION: CT - Chest Abdomen Pelvis W Cont - 01/09/2023 6:59 pm CLINICAL HISTORY: Chest and abdomen pain. weakness COMPARISON: <Comparisons> TECHNIQUE: Approximately 100 mL nonionic IV contrast was administered to the patient. All CT scans are performed using dose optimization technique as appropriate and may include automated exposure control or mA/KV adjustment according to patient size. FINDINGS: Bilateral hazy airspace opacities are present, greater on the right, most compatible with pneumonia.No pleural or pericardial effusion.No intrathoracic adenopathy. The liver, spleen, pancreas, adrenal glands and kidneys are within normal limits. Benign renal cysts. No bowel obstruction, free air, free fluid or abscess. Moderate stool is present throughout the colon . Mild thickening of several loops distal small bowel. There is a large amount of stool present in th e rectum. No pathologic lymphadenopathy in the abdomen or pelvis. Advanced lumbar degenerative changes are present. IMPRESSION: Bilateral pulmonary opacities probably represent pneumonia. Fecal retention is noted in the rectum. Mild thickening of the distal small bowel loops in the right lower quadrant noted could indicate mild enteritis. Normal appendix.
[2023-01-09] MEDS ORDERED: NA CHLORIDE 0.9% 500 ML ONE (19:45)
--- NOTE | 2023-01-09 20:01 | ER ---
Nurse's Notes [facility] Name: Joe Holt Age: 87 yrs Sex: Male : 1935 Arrival Date: 01/09/2023 Time: 16:47 Bed 20 Private MD: Diagnosis: Pneumonia due to other specified bacteria;Weakness;Sepsis, unspecified organism Presentation: 01/09 16:47 Chief complaint: EMS states: patient is more weak than normal. EMS picked patient up db from home. worried about patient because he has increased weakness did not want to eat or drink today and was vomiting last night and this morning. EMS glucose 175. Coronavirus screen: Client denies travel out of the [place] in the last 14 days. Coronavirus screen: At this time, the client does not indicate any symptoms associated with coronavirus-19. Ebola Screen: Patient negative for fever greater than or equal to 101.5 degrees Fahrenheit, and additional compatible Ebola Virus Disease symptoms Patient denies exposure to infectious person. Patient denies travel to an Ebola-affected area in the 21 days before illness onset. No symptoms or risks identified at this time. Initial Sepsis Screen: Does the patient meet any 2 criteria? HR > 90 bpm. Yes Does the patient have a suspected source of infection? No. Patient's initial sepsis screen is negative. Risk Assessment: Do you want to hurt yourself or someone else? Patient reports no desire to harm self or others. Onset of symptoms was January 09, 2023. 16:47 Method Of Arrival: EMS: [facility] db 16:47 Acuity: JUDITH 3 db Triage Assessment: 17:02 General: Appears in no apparent distress. comfortable, Behavior is calm, cooperative. db Pain: Denies pain. Historical: - Allergies: 17:02 PENICILLINS; db - PMHx: 17:02 Hypertension; db - PSHx: 17:02 pacemaker; db - Immunization history:: Client reports receiving the 2nd dose of the Covid vaccine. - Social history:: Smoking status: Patient denies any tobacco usage or history of. Screenin:30 [facility] ED Fall Risk Assessment (Adult) History of falling in the last 3 months, db including since admission Yes- fall prone (multiple falls) (3 pts) Confusion or Disorientation No (0 pts) Intoxicated or Sedated No (0 pts) Impaired Gait No (0 pts) Mobility Assist Device Used Yes (1 pt) Altered Elimination Yes (1 pt) Score/Fall Risk Level 3 or more points = High Risk Oriented to surroundings, Maintained a safe environment. Abuse screen: Denies threats or abuse. Denies injuries from another. Nutritional screening: No deficits noted. Tuberculosis screening: No symptoms or risk factors identified. Assessment: 17:02 Reassessment: Patient appears in no apparent distress at this time. Patient and/or db family updated on plan of care and expected duration. Pain level reassessed. Patient is alert, oriented x 3, equal unlabored respirations, skin warm/dry/pink. General: Appears in no apparent distress. comfortable, Behavior is calm, cooperative. Neuro: Level of Consciousness is awake, alert, obeys commands, Oriented to person, place, time, situation, Appropriate for age. 17:18 Reassessment: patient transported to CT. db 18:30 Reassessment: Patient appears in no apparent distress at this time. Patient and/or db family updated on plan of care and expected duration. Pain level reassessed. Patient is alert, oriented x 3, equal unlabored respirations, skin warm/dry/pink. family at bedside. Cardiovascular: Rhythm is ventricular pacer. 19:30 Reassessment: Patient appears in no apparent distress at this time. Patient and/or vc1 family updated on plan of care and expected duration. Pain level reassessed. Patient is alert, oriented x 3, equal unlabored respirations, skin warm/dry/pink. 19:56 Reassessment: Asked lab to come and draw blood cultures on patient. vc1 20:30 Reassessment: No changes from previously documented assessment. Patient and/or family vc1 updated on plan of care and expected duration. Pain level reassessed. Patient is alert, oriented x 3, equal unlabored respirations, skin warm/dry/pink. 21:30 Reassessment: No changes from previously documented assessment. Patient and/or family vc1 updated on plan of care and expected duration. Pain level reassessed. Patient is alert, oriented x 3, equal unlabored respirations, skin warm/dry/pink. 22:06 Reassessment: informed lab that pt still needs blood cultures drawn and is now in room vc1 230. Vital Signs: 16:47 BP 120 / 79; Pulse 96; Resp 16; Temp 99.1(O); Pulse Ox 97% on R/A; Weight 65.32 kg; db Height 4 ft. 9 in. ; 17:46 BP 127 / 63; Pulse 83; Resp 18 S; Pulse Ox 94% on R/A; kc6 18:30 BP 115 / 65; Pulse 89; Resp 16; Pulse Ox 94% on R/A; db 19:00 BP 139 / 60; Pulse 88; Resp 24; Pulse Ox 94% ; vc1 20:00 BP 138 / 45; Pulse 86; Resp 19; Pulse Ox 95% on R/A; vc1 21:00 BP 113 / 43; Pulse 87; Resp 28; Pulse Ox 95% on R/A; vc1 16:47 Body Mass Index 31.16 (65.32 kg, 144.78 cm) db ED Course: 16:51 Patient arrived in ED. mm9 16:54 Everett Higgins PA is PHCP. cp 16:54 Raudel Chandra MD is Attending Physician. cp 16:57 Denise Rajput, ESPERANZA is Primary Nurse. db 17:02 Triage completed. db 17:02 Arm band placed on Patient placed in an exam room. db 17:21 CT Head Brain wo Cont In Process Unspecified. EDMS 17:41 Inserted saline lock: 22 gauge in right hand, using aseptic technique. db 17:46 Patient has correct armband on for positive identification. Placed in gown. Bed in low kc6 position. Call light in reach. Side rails up X2. 17:50 Initial lab(s) drawn, by me, sent to lab. Inserted saline lock: 22 gauge in right aa5 wrist, using aseptic technique. Blood collected. 18:07 XRAY Chest (1 view) In Process Unspecified. EDMS 18:59 CT Chest, Abdomen, Pelvis - W/Contrast In Process Unspecified. EDMS 19:37 Urinalysis W/Microscopic Sent. kl 19:59 Antwan Davalos MD is Hospitalizing Provider. cp 20:59 Lactate w/ 2H reflex if indic. Sent. bc6 22:06 No provider procedures requiring assistance completed. Patient admitted, IV remains in vc1 place. Administered Medications: 19:37 CANCELLED (Physician Discretion): Rocephin IV 1 grams IV at calculated rate once; Given cp slow IV push per pharmacy instructions 19:38 CANCELLED (Physician Discretion): Zithromax IVPB 500 mg IVPB once over 1 hrs; mix in cp 250 mL NS 19:47 CANCELLED (Physician Discretion): LevaQUIN IVPB 750 mg IVPB once cp 22:04 Drug: NS 0.9% IV 500 ml Route: IV; Rate: 250 ml/hr; Site: right hand; 1 22:04 Follow up: IV Status: Infusion continued upon admission vc1 Medication: 22:07 VIS not applicable for this client. vc1 Outcome: 20:00 Decision to Hospitalize by Provider. cp 22:06 Admitted to Med/surg accompanied by tech, via stretcher, room 230, with chart. vc1 22:06 Condition: good 22:06 Instructed on the need for admit. 22:07 Patient left the ED. vc1 Signatures: Dispatcher [employer] EDShelly Kiran, Ilana Bucio RN, RN RN aa5 Everett Higgins, BUDDY PA Ashly Mcnulty RN RN 1 Rosa Rowell RN RN kc6 Denise Rajput RN RN db Martinez, Maria [facility] Tia Renee6
--- NOTE | 2023-01-09 20:01 | EDPHYS ---
Physician Documentation [facility] Name: Joe Holt Age: 87 yrs Sex: Male : 1935 Arrival Date: 01/09/2023 Time: 16:47 Bed 20 Private MD: ED Physician Raudel Chandra HPI: 01/09 17:00 This 87 yrs old Male presents to ER via EMS with complaints of General Weakness. cp 17:00 The patient's problem is reported as weakness, that is generalized. cp 17:00 Onset: The symptoms/episode began/occurred today. cp 17:00 Associated signs and symptoms: Pertinent positives: vomiting, weakness, Pertinent cp negatives: chest pain, diarrhea, headache. Patient's baseline: Neuro: alert and fully oriented, Motor: no deficits, Ambulation: walks with assist only, uses walker, Speech: normal. Historical: - Allergies: 17:02 PENICILLINS; db - PMHx: 17:02 Hypertension; db - PSHx: 17:02 pacemaker; db - Immunization history:: Client reports receiving the 2nd dose of the Covid vaccine. - Social history:: Smoking status: Patient denies any tobacco usage or history of. ROS: 17:05 Eyes: Negative for injury, pain, redness, and discharge. cp 17:05 Constitutional: Negative for body aches, chills, fever. 17:05 ENT: Negative for drainage from ear(s), ear pain, sore throat, difficulty swallowing, difficulty handling secretions. 17:05 Cardiovascular: Negative for chest pain, edema. 17:05 Respiratory: Negative for cough, shortness of breath, wheezing. 17:05 Abdomen/GI: Positive for abdominal pain, vomiting, Negative for diarrhea, constipation, black/tarry stool. 17:05 Back: Positive for pain at rest, Negative for injury or acute deformity. 17:05 Skin: Negative for cellulitis, rash. 17:05 Neuro: Positive for weakness, Negative for altered mental status, headache, syncope. 17:05 All other systems are negative. Exam: 17:10 Constitutional: The patient appears in no acute distress, alert, awake, cp non-diaphoretic, non-toxic, well developed, well nourished. 17:10 Head/Face: Normocephalic, atraumatic. cp 17:10 Eyes: Periorbital structures: appear normal, Pupils: equal, round, and reactive to light and accomodation, Extraocular movements: intact throughout, Conjunctiva: normal, no exudate, no injection, Sclera: no appreciated abnormality, Lids and lashes: appear normal, bilaterally. 17:10 ENT: External ear(s): are unremarkable, Nose: is normal, Mouth: Lips: dry, Oral mucosa: dry, Posterior pharynx: is normal, airway is patent, no erythema, no exudate. 17:10 Neck: ROM/movement: is normal, is supple, without pain, no range of motions limitations, no meningismus. 17:10 Chest/axilla: Inspection: normal, Palpation: is normal, no crepitus, no tenderness. 17:10 Cardiovascular: Rate: normal, Rhythm: regular, Edema: is not appreciated, JVD: is not appreciated. 17:10 Respiratory: the patient does not display signs of respiratory distress, Respirations: labored breathing, is not present, shallow respirations, that is mild, Breath sounds: bronchial sounds, that are mild, are heard diffusely, decreased breath sounds, that are mild, diffuse, stridor, is not appreciated, wheezing: is not appreciated. 17:10 Abdomen/GI: Inspection: abdomen appears normal, Bowel sounds: active, all quadrants, Palpation: soft, in all quadrants, mild abdominal tenderness, in the right lower quadrant, rebound tenderness, is not appreciated, involuntary guarding, is not appreciated. 17:10 Back: pain, that is mild, diffuse, ROM is normal, CVA tenderness, is absent, vertebral tenderness, is not appreciated. 17:10 Skin: cellulitis, is not appreciated, no rash present. 17:10 Neuro: Orientation: to person, place, situation, Mentation: able to follow commands, slow to respond, Motor: moves all fours, general weakness with no focal deficits, Sensation: is normal. 18:15 ECG was reviewed by the Attending Physician. cp Vital Signs: 16:47 BP 120 / 79; Pulse 96; Resp 16; Temp 99.1(O); Pulse Ox 97% on R/A; Weight 65.32 kg; db Height 4 ft. 9 in. ; 17:46 BP 127 / 63; Pulse 83; Resp 18 S; Pulse Ox 94% on R/A; kc6 18:30 BP 115 / 65; Pulse 89; Resp 16; Pulse Ox 94% on R/A; db 19:00 BP 139 / 60; Pulse 88; Resp 24; Pulse Ox 94% ; vc1 20:00 BP 138 / 45; Pulse 86; Resp 19; Pulse Ox 95% on R/A; vc1 21:00 BP 113 / 43; Pulse 87; Resp 28; Pulse Ox 95% on R/A; vc1 16:47 Body Mass Index 31.16 (65.32 kg, 144.78 cm) db MDM: 16:55 Patient medically screened. cp 19:45 Data reviewed: vital signs, nurses notes, lab test result(s), EKG, radiologic studies, cp CT scan, plain films. 19:45 Differential diagnosis: CVA, TIA, metabolic disorder, drug effects, sepsis, UTI, cp pneumonia. Consideration of Admission/Observation Patient was admitted/placed on observation. Management of patient was discussed with the following: Primary Care Provider: DR Davalos. Care significantly affected by the following chronic conditions: Hypertension. Counseling: I had a detailed discussion with the patient and/or guardian regarding: the historical points, exam findings, and any diagnostic results supporting the discharge/admit diagnosis, lab results, radiology results, the need for further work-up and treatment in the hospital. 01/09 16:55 Order name: Basic Metabolic Panel; Complete Time: 18:24 cp 01/09 18:24 Interpretation: Normal except: CL 109; GLUC 125; BUN 30; GFR 59. 01/09 16:55 Order name: CBC with Diff; Complete Time: 19:22 01/09 19:22 Interpretation: Normal except: WBC 21.10; RBC 4.13; HGB 10.0; HCT 31.9; MCV 77.1; MCH cp 24.2; MCHC 31.4; RDW 16.6; KIRAN% 88.9; LYM% 5.7; NEUT A 18.7. 01/09 16:55 Order name: LFT's; Complete Time: 18:24 cp 01/09 18:24 Interpretation: Normal except: ALT 12; ALB 3.1; GLOB 3.8; A/G 0.8. 01/09 16:55 Order name: Magnesium; Complete Time: 18:24 cp 01/09 16:55 Order name: NT PRO-BNP; Complete Time: 18:24 cp 05 18:24 Interpretation: Reviewed. cp 01/09 16:55 Order name: PT-INR; Complete Time: 18:24 cp 01/09 16:55 Order name: Troponin HS; Complete Time: 18:24 cp 01/09 18:25 Interpretation: Troponin HS 25.7; Reviewed. cp 01/09 17:15 Order name: Urinalysis W/Microscopic; Complete Time: 20:12 cp 01/09 20:12 Interpretation: Reviewed. cp 01/09 18:10 Order name: Manual Differential; Complete Time: 19:22 EDMS 01/09 19:22 Interpretation: Normal except: SEGS 87; BANDS [F] 7; LYM 1. cp 01/09 19:23 Order name: Lactate w/ 2H reflex if indic.; Complete Time: 20:41 cp 01/09 19:23 Order name: Blood Culture Adult (2); Complete Time: 20:41 cp 01/09 20:18 Order name: COVID-19 SARS RT PCR; Complete Time: 20:41 cp 01/09 20:18 Order name: Influenza Screen (a \T\ B); Complete Time: 20:41 cp 01/09 20:19 Order name: Basic Metabolic Panel EDMS 01/09 20:19 Order name: Basic Metabolic Panel; Complete Time: 20:41 EDMS 01/09 20:19 Order name: CBC with Automated Diff EDMS 01/09 20:19 Order name: CBC with Automated Diff; Complete Time: 20:41 EDMS 01/09 20:19 Order name: NT PRO-BNP EDMS 01/09 20:19 Order name: NT PRO-BNP; Complete Time: 20:41 EDMS 01/09 20:19 Order name: Troponin High Sensitivity EDMS 01/09 20:19 Order name: Troponin High Sensitivity; Complete Time: 20:41 EDMS 01/09 20:19 Order name: Troponin High Sensitivity EDMS 01/09 20:19 Order name: Troponin High Sensitivity; Complete Time: 20:41 EDMS 01/09 16:55 Order name: XRAY Chest (1 view); Complete Time: 18:24 cp 14 18:25 Interpretation: Report review. cp 01/09 16:55 Order name: CT Head Brain wo Cont; Complete Time: 18:24 cp 01/09 18:27 Order name: CT Chest, Abdomen, Pelvis - W/Contrast; Complete Time: 19:33 cp 01/09 16:55 Order name: EKG; Complete Time: 16:56 cp 01/09 20:19 Order name: Regular EDMS 01/09 16:55 Order name: Cardiac monitoring; Complete Time: 18:58 cp 01/09 16:55 Order name: EKG - Nurse/Tech; Complete Time: 18:59 cp 01/09 16:55 Order name: IV Saline Lock; Complete Time: 17:57 cp 01/09 16:55 Order name: Labs collected and sent; Complete Time: 17:57 cp 01/09 16:55 Order name: O2 Per Protocol; Complete Time: 17:46 cp 01/09 16:55 Order name: O2 Sat Monitoring; Complete Time: 17:46 cp EC:15 Rate is 85 beats/min. Rhythm is regular. TX interval is normal. QRS interval is cp prolonged at 174 msec. QT interval is prolonged. T waves are Inverted in leads aVL, aVR. Interpreted by me. Reviewed by me. Administered Medications: 19:37 CANCELLED (Physician Discretion): Rocephin IV 1 grams IV at calculated rate once; Given cp slow IV push per pharmacy instructions 19:38 CANCELLED (Physician Discretion): Zithromax IVPB 500 mg IVPB once over 1 hrs; mix in cp 250 mL NS 19:47 CANCELLED (Physician Discretion): LevaQUIN IVPB 750 mg IVPB once cp 22:04 Drug: NS 0.9% IV 500 ml Route: IV; Rate: 250 ml/hr; Site: right hand; vc1 22:04 Follow up: IV Status: Infusion continued upon admission vc1 Disposition Summary: 01/09/23 20:00 Hospitalization Ordered Hospitalization Status: Inpatient Admission cp Provider: Antwan Davalos cp Location: Telemetry/MedSurg (Inpatient) cp Condition: Stable cp Problem: new cp Symptoms: have improved cp Bed/Room Type: Standard cp Room Assignment: 230(01/09/23 20:26) cg Diagnosis - Pneumonia due to other specified bacteria cp - Weakness cp - Sepsis, unspecified organism cp Forms: - Medication Reconciliation Form cp - SBAR form cp Signatures: Dispatcher [employer] EDMS Everett Higgins PA PA cp Garcia, Cindy RN RN cg Ashly Mcnulty RN RN vc1 Denise Rajput RN RN db Corrections: (The following items were deleted from the chart) 19:37 19:37 Rocephin IV 1 grams IV at calculated rate once; Given slow IV push per pharmacy cp instructions ordered. cp 19:38 19:37 Zithromax IVPB 500 mg IVPB once over 1 hrs; mix in 250 mL NS ordered. cp cp 19:47 19:38 LevaQUIN IVPB 750 mg IVPB once ordered. cp cp 20:26 20:00 cp cg :01/08 17:05 Constitutional: Negative for body aches, chills, fever, cp cp 01/09 23:01/08 17:05 Cardiovascular: Negative for chest pain, edema, cp cp 01/09 23:01/08 17:05 Respiratory: Negative for cough, shortness of breath, wheezing, cp cp 01/09 23:01/08 17:05 Abdomen/GI: Positive for abdominal pain, vomiting, Negative for diarrhea, cp constipation, black/tarry stool, cp 01/09 23:01/08 17:05 Eyes: Negative for injury, pain, redness, and discharge, cp cp 01/09 23:01/08 17:05 ENT: Negative for drainage from ear(s), ear pain, sore throat, difficulty cp swallowing, difficulty handling secretions, cp 01/09 23:01/08 17:05 Back: Positive for pain at rest, Negative for injury or acute deformity, cp cp 01/09 23:01/08 17:05 Skin: Negative for cellulitis, rash, cp cp 01/09 23:01/08 17:05 Neuro: Positive for weakness, Negative for altered mental status, headache, cp syncope, cp 01/09 23:01/08 17:05 All other systems are negative, cp cp
[2023-01-09 20:02] LABS: Specific Gravity > 1.030 (1.005-1.030); Urine Bacteria <20 /HPF (<20); Urine Bilirubin NEGATIVE (Negative); Urine Blood Trace (Negative); Urine Clarity Clear (Clear); Urine Color Yellow (Yellow); Urine Glucose NEGATIVE (Negative); Urine Mucus Slight /HPF (None Seen); Urine Protein 1+ (Negative); Urine Urobilinogen Normal (Normal); Urine pH 6.5 (5.0-7.0)
[2023-01-09] MEDS ORDERED: ALBUTEROL 2.5 MG/3 ML NEB SOL NEB PRN (20:14)
[2023-01-09] MEDS ORDERED: ACETAMINOPHEN 500 MG TAB PO PRN (20:14)
[2023-01-09] MEDS ORDERED: IPRATROPIUM BROM 0.5MG/2.5ML NEB PRN (20:14)
[2023-01-09] MEDS ORDERED: ONDANSETRON 4 MG/2 ML VIAL IV PRN (20:14)
[2023-01-09 22:33] VITALS: BMI 30.7
[2023-01-09] MEDS: CEFTRIAXONE 1,000 MG in NA CHLORIDE 0.9% 50 ML IVPB SCH (23:45)
[2023-01-10] MEDS ORDERED: AZITHROMYCIN 500 MG INJ IVPB ONE (00:06)
[2023-01-10] MEDS ORDERED: NA CHLORIDE 0.9% 250 ML ONE (00:07)
[2023-01-10] MEDS: AZITHROMYCIN IV 250 MG in NA CHLORIDE 0.9% 250 ML IVPB SCH ×2 (00:12→22:12)
[2023-01-10 03:01] LABS: Urine Bacteria <20 /HPF (<20); Urine Bilirubin NEGATIVE (Negative); Urine Blood 2+ (Negative); Urine Clarity Clear (Clear); Urine Color Light-Yellow (Yellow); Urine Glucose NEGATIVE (Negative); Urine Protein 1+ (Negative); Urine RBC 21-50 /HPF (None Seen); Urine Urobilinogen Normal (Normal); Urine pH 7.5 (5.0-7.0)
[2023-01-10 03:33] LABS: Specific Gravity > 1.030 (1.005-1.030)
[2023-01-10 08:57] LABS: Absolute Lymphocytes (CBC) 1.6 K/uL (0.7-4.9); Hematocrit 28.3 % (39.6-49.0); Lymphocytes % 9.7 % (15.3-44.8); MPV 8.9 fL (7.6-11.3); RBC Red Blood Cell Count 3.67 M/uL (4.33-5.43)
[2023-01-10] MEDS: CEFTRIAXONE 1,000 MG in NA CHLORIDE 0.9% 50 ML IVPB SCH ×2 (09:07→21:45)
[2023-01-10 09:17] LABS: Potassium 3.7 mEq/L (3.5-5.1); Troponin High Sensitivity 32.4 pg/mL (<58.9)
--- NOTE | 2023-01-10 11:43 | EKG ---
Test Date: 2023-01-09 Test Time: 18:10:38 Billing Services Manager: GERMAN MEASUREMENT RESULTS: Intervals: Rate: 85 [place]: 174 QRSD: 174 QT: 464 QTc: 552 Guy: P: 30 [place]: 174 QRS: -77 T: 88 INTERPRETIVE STATEMENTS: Electronic ventricular pacemaker Compared to ECG 05/28/2021 11:00:04 No significant changes Electronically Signed On 01-10-23 11:41:32 CDT by Giacomo Craft
[2023-01-10] MEDS ORDERED: IPRATROPIUM BROM 0.5MG/2.5ML NEB PRN (12:00)
[2023-01-10] MEDS ORDERED: ALBUTEROL 2.5 MG/3 ML NEB SOL NEB PRN (12:00)
--- NOTE | 2023-01-10 13:09 | P.HP ---
Certification for Inpatient Patient admitted to: Inpatient With expected LOS: >2 Midnights Patient will require the following post-hospital care: Home Health Services Practitioner: I am a practitioner with admitting privileges, knowledge of patient current condition, hospital course, and medical plan of care. 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 He has a history of htn and spinal stenosis and uses a walker. The patient was feeling well till Tuesday night. He was restless and not sleeping well per his . She found he had vomited the next morning. The patient was weak, not getting out of bed, not eating. He states he was coughing and feeling feverish. Decided to come to the ER. Was found to have a bilateral pneumonia. His CURB-65 score is 2, correlating with a 2% mortality. Hence will treat him inpatient Allergies onion Allergy (Verified 12/24/19 08:39) Hives/Rash Penicillins Allergy (Verified 12/24/19 05:04) Hives/Rash Home Medications: Amlodipine [Norvasc*] 5 mg PO DAILY 01/10/23 Promethazine HCl 50 mg PO PRN 01/10/23 Tamsulosin [Flomax*] 0.4 mg PO DAILY 01/10/23 Trospium Chloride [Sanctura] 20 mg PO BEDTIME 01/10/23 - Past Medical/Surgical History Has patient received pneumonia vaccine in the past: Yes Diabetic: No -: HTN -: Hyperlipidemia -: Obesity -: Murmur -: Bradycardia -: bilateral cataract sx. -: hernia repair -: ulcer repair x 2 Psychosocial/ Personal History: . - Social History Smoking Status: Never smoker Alcohol use: No CD- Drugs: No Caffeine use: Yes Place of Residence: Home Review of Systems 10-point ROS is otherwise unremarkable General: Fever, Weakness Respiratory: Cough Physical Examination - Vital Signs Temperature: 97.1 F Blood Pressure: 116/60 Pulse: 80 Respirations: 16 Pulse Ox (%): 93 - Physical Exam General: Alert, In no apparent distress HEENT: Atraumatic, PERRLA, Mucous membr. moist/pink, EOMI, Sclerae nonicteric Neck: Supple, 2+ carotid pulse no bruit, No LAD, Without JVD or thyroid abnormality Respiratory: Clear to auscultation bilaterally, Normal air movement Cardiovascular: Regular rate/rhythm, Normal S1 S2 Gastrointestinal: Normal bowel sounds, No tenderness Musculoskeletal: No tenderness Integumentary: No rashes Neurological: Normal gait, Normal speech, Normal strength at 5/5 x4 extr, Normal tone, Normal affect Lymphatics: No axilla or inguinal lymphadenopathy - Studies Laboratory Data (last 24 hrs) 01/09/23 17:50: PT 12.2, INR 1.11 01/09/23 17:50: WBC 21.10 H, Hgb 10.0 L, Hct 31.9 L, Plt Count 287 01/09/23 17:50: Sodium 138, Potassium 3.9, BUN 30 H, Creatinine 1.19, Glucose 125 H, Magnesium 1.9, Total Bilirubin 0.6, AST 16, ALT 12 L, Alkaline Phosphatase 67 Assessment and Plan - Problems (Diagnosis) (1) Pneumonia Current Visit: Yes Status: Acute Plan: will keep the patient in house. Continue zithro and rocephin. Will await blood culture results Qualifiers: Pneumonia type: due to unspecified organism Laterality: bilateral Lung location: lower lobe of lung Qualified Code(s): J18.9 - Pneumonia, unspecified organism (2) Spinal stenosis Current Visit: Yes Status: Acute Plan: Normally walks with a walker. Will order PT for the patient Qualifiers: Spinal region: unspecified Qualified Code(s): M48.00 - Spinal stenosis, site unspecified (3) Hypertension Current Visit: No Status: Chronic Plan: restart home medications. Will adjust as needed Qualifiers: Hypertension type: primary hypertension Qualified Code(s): I10 - Essential (primary) hypertension Discharge Plan: Home Plan to discharge in: 48 Hours - Advance Directives Does patient have a Living Will: No Does patient have a Durable POA for Healthcare: No - Code Status/Comfort Care Code Status Assessed: Yes Code Status: Full Code Physician Review: Patient Assessed, Agree with Above Assessment and Plan Critical Care: No Time Spent Managing Pts Care (In Minutes): 50
[2023-01-11] MEDS: TAMSULOSIN 0.4 MG SR CAP PO SCH (08:51)
[2023-01-11] MEDS: AMLODIPINE 5 MG TAB PO SCH (08:54)
[2023-01-11] MEDS: CEFTRIAXONE 1,000 MG in NA CHLORIDE 0.9% 50 ML IVPB SCH ×2 (08:56→21:57)
[2023-01-11 09:47] LABS: Absolute Lymphocytes (CBC) 1.3 K/uL (0.7-4.9); Hematocrit 31.1 % (39.6-49.0); Lymphocytes % 8.6 % (15.3-44.8); MCV 76.7 fL (80-100); MPV 8.5 fL (7.6-11.3); RBC Red Blood Cell Count 4.05 M/uL (4.33-5.43)
[2023-01-11 10:04] LABS: Albumin 2.7 g/dL (3.4-5.0); Bilirubin Total 0.4 mg/dL (0.2-1.0); Potassium 3.7 mEq/L (3.5-5.1); Protein, Total 6.3 g/dL (6.4-8.2)
--- NOTE | 2023-01-11 13:03 | P.PN ---
Subjective Date of Service: 01/11/23 Primary Care Provider: Anoop Chief Complaint: bilateral pneumonia Subjective: Improving (walked 700 feet with PT) Review of Systems 10-point ROS is otherwise unremarkable Physical Examination - Vital Signs Temperature: 96.8 F Blood Pressure: 143/67 Pulse: 76 Respirations: 14 Pulse Ox (%): 96 - Physical Exam General: Alert, In no apparent distress HEENT: Atraumatic, PERRLA, EOMI Neck: Supple, JVD not distended Respiratory: Clear to auscultation bilaterally, Normal air movement Cardiovascular: Regular rate/rhythm, Normal S1 S2 Gastrointestinal: Normal bowel sounds, No tenderness Musculoskeletal: No tenderness Integumentary: No rashes Neurological: Normal speech, Normal tone, Normal affect Lymphatics: No axilla or inguinal lymphadenopathy Assessment And Plan - Current Problems (Diagnosis) (1) Pneumonia Current Visit: Yes Status: Acute Plan: will keep the patient in house. Continue zithro and rocephin. Will await blood culture results Qualifiers: Pneumonia type: due to unspecified organism Laterality: bilateral Lung location: lower lobe of lung Qualified Code(s): J18.9 - Pneumonia, unspecified organism (2) Spinal stenosis Current Visit: Yes Status: Acute Plan: Normally walks with a walker. Will order PT for the patient Qualifiers: Spinal region: unspecified Qualified Code(s): M48.00 - Spinal stenosis, site unspecified (3) Hypertension Current Visit: No Status: Chronic Plan: restart home medications. Will adjust as needed Qualifiers: Hypertension type: primary hypertension Qualified Code(s): I10 - Essential (primary) hypertension Discharge Plan: Home Plan to discharge in: 24 Hours - Code Status/Comfort Care Code Status Assessed: No Physician Review: Patient Assessed, Agree with Above Assessment and Plan Critical Care: No Time Spent Managing PTS Care (In Minutes): 20
[2023-01-11] MEDS: AZITHROMYCIN IV 250 MG in NA CHLORIDE 0.9% 250 ML IVPB SCH (21:57)
--- NOTE | 2023-01-12 08:17 | P.DS ---
Admission Date: 01/09/23 Discharge Date: 01/12/23 Primary Care Provider: Anoop Disposition: ROUTINE DISCHARGE Discharge Condition: GOOD Reason for Admission: bilateral pneumonia - Problems (1) Pneumonia Current Visit: Yes Status: Acute Qualifiers: Pneumonia type: due to unspecified organism Laterality: bilateral Lung location: lower lobe of lung Qualified Code(s): J18.9 - Pneumonia, unspecified organism (2) Spinal stenosis Current Visit: Yes Status: Acute Qualifiers: Spinal region: unspecified Qualified Code(s): M48.00 - Spinal stenosis, site unspecified (3) Hypertension Current Visit: No Status: Chronic Qualifiers: Hypertension type: primary hypertension Qualified Code(s): I10 - Essential (primary) hypertension Brief History of Present Illness: 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 He has a history of htn and spinal stenosis and uses a walker. The patient was feeling well till Tuesday night. He was restless and not sleeping well per his . She found he had vomited the next morning. The patient was weak, not getting out of bed, not eating. He states he was coughing and feeling feverish. Decided to come to the ER. Was found to have a bilateral pneumonia. His CURB-65 score is 2, correlating with a 2% mortality. Hence will treat him inpatient Hospital Course: Patient admitted start on iv antibiotics. Walked well with PT. He has negative cultures. Feels a bit tired this morning. Will see if he improves after breakfast. Then we can discharge him Vital Signs/Physical Exam: Temp Pulse Resp BP Pulse Ox 97.6 F 91 H 18 155/92 H 96 01/12/23 04:00 01/12/23 04:00 01/12/23 04:00 01/12/23 04:00 01/12/23 04:00 General: Alert, In no apparent distress HEENT: Atraumatic, PERRLA, EOMI Neck: Supple, JVD not distended Respiratory: Clear to auscultation bilaterally, Normal air movement Cardiovascular: Regular rate/rhythm, Normal S1 S2 Gastrointestinal: Normal bowel sounds, No tenderness Musculoskeletal: No tenderness Integumentary: No rashes Neurological: Normal speech, Normal tone, Normal affect Lymphatics: No axilla or inguinal lymphadenopathy Laboratory Data at Discharge: WBC 14.80 thou/uL (4.3-10.9) H 01/11/23 09:38 Hgb 9.6 g/dL (13.6-17.9) L D 01/11/23 09:38 Hct 31.1 % (39.6-49.0) L 01/11/23 09:38 Plt Count 289 thou/uL (152-406) D 01/11/23 09:38 PT 12.2 SECONDS (9.5-12.5) 01/09/23 17:50 INR 1.11 01/09/23 17:50 Sodium 136 mEq/L (136-145) 01/11/23 09:38 Potassium 3.7 mEq/L (3.5-5.1) 01/11/23 09:38 BUN 21 mg/dL (7-18) H 01/11/23 09:38 Creatinine 0.86 mg/dL (0.70-1.30) 01/11/23 09:38 Glucose 119 mg/dL (74-106) H 01/11/23 09:38 Magnesium 1.9 mg/dL (1.6-2.4) 01/09/23 17:50 Total Bilirubin 0.4 mg/dL (0.2-1.0) 01/11/23 09:38 AST 18 U/L (15-37) 01/11/23 09:38 ALT 11 U/L (16-61) L 01/11/23 09:38 Alkaline Phosphatase 68 U/L (45-117) 01/11/23 09:38 Home Medications: Amlodipine [Norvasc*] 5 mg PO DAILY 01/10/23 Promethazine HCl 50 mg PO PRN 01/10/23 Tamsulosin [Flomax*] 0.4 mg PO DAILY 01/10/23 Trospium Chloride [Sanctura] 20 mg PO BEDTIME 01/10/23 Azithromycin [Zithromax] 500 mg PO DAILY 7 Days #7 tab 01/12/23 New Medications: Azithromycin [Zithromax] 500 mg PO DAILY 7 Days #7 tab Diet: Regular Activity: Ad massiel Followup: Antwan Davalos MD [ACTIVE - CAN ADMIT] - Physician Review: Patient Assessed, Agree with Above Assessment and Plan Time spent managing pt's care (in minutes): 30
[2023-01-12] MEDS: AMLODIPINE 5 MG TAB PO SCH (08:20)
[2023-01-12 08:21] VITALS: BP 137/65
[2023-01-12] MEDS: TAMSULOSIN 0.4 MG SR CAP PO SCH (08:21)
[2023-01-12 08:35] VITALS: TEMP 97.2
[2023-01-12 09:03] VITALS: O2SAT 95
[2023-01-12] MEDS: CEFTRIAXONE 1,000 MG in NA CHLORIDE 0.9% 50 ML IVPB SCH (09:04)
[2023-01-12 09:46] LABS: Absolute Lymphocytes (CBC) 1.5 K/uL (0.7-4.9); Hematocrit 31.4 % (39.6-49.0); Lymphocytes % 9.2 % (15.3-44.8); MPV 8.6 fL (7.6-11.3); RBC Red Blood Cell Count 4.13 M/uL (4.33-5.43)
[2023-01-12 10:01] LABS: Albumin 2.6 g/dL (3.4-5.0); Bilirubin Total 0.4 mg/dL (0.2-1.0); Potassium 4.2 mEq/L (3.5-5.1); Protein, Total 6.4 g/dL (6.4-8.2)
== END 2023-01-12 15:47 | disposition home health service (06) | DRG 194 ==
LOC: ER 16:47 → ERHOLD 20:17 → 2ND 21:58
PROVIDERS: ADMIT Internal Medicine; ATTEND Internal Medicine
DX: J18.9 Pneumonia, unspecified organism (principal); R65.10 Systemic inflammatory response syndrome (SIRS) of non-infectious origin without acute organ dysfunction; R53.1 Weakness; Z88.0 Allergy status to penicillin; I10 Essential (primary) hypertension; Z95.0 Presence of cardiac pacemaker; M48.00 Spinal stenosis, site unspecified; E78.5 Hyperlipidemia, unspecified; E66.9 Obesity, unspecified; Z68.30 Body mass index [BMI] 30.0-30.9, adult
CPT/HCPCS: 36415; 70450; 71045; 71260; 74177; 80048; 80053; 80076; 81001; 83605; 83735; 83880; 84484; 85025; 85610; 87040; 87804; 93005; 94760; 97110; 97116; 97161; 97530; 99285; J0696; J2405; J7040; J7050; Q9967; U0003

== ENCOUNTER 2023-01-19 15:29 | Inpatient (IN) | payer OTHER ==
--- OUTSIDE RECORDS SUMMARY | 2023-01-19 15:34 | XMS REPORT | Continuity of Care Document ---
:1935 Author Organization [facility] t Address [address] [place] [address] Care Team Providers Name Role Phone Antwan Davalos Primary Care Physician Antwan Davalos Attending Clinician Unavailable Shayy Jade RN Attending Clinician Unavailable Tran Navarrete Attending Clinician Marko Rivas MD Attending Clinician ASHLIE BRIZUELA Attending Clinician Unavailable STEPHANIE JOSEPH Attending Clinician Unavailable Tk Sin Attending Clinician SUZI FIGUEROA Attending Clinician Unavailable SUZI FIGUEROA Attending Clinician Unavailable Pc, Adc Vascular Room 1 - Attending Clinician Unavailable Marko Rivas MD Admitting Clinician Payers Payer Name Policy Type Policy Number Effective Date Expiration Date Wen [facility] [id number] 2020 COMP HMO D SNP 00:00:00 [place] [id number] 2020 Common HEALTHCARE DUAL 00:00:00 Spirit - [facility] PAT [facility] [id number] 2019 PLUS 00:00:00 Problems Condition Condition Condition [...] Claudicati Claudicati Problem C ommon on on [facility] Edema Edema Problem Common [facility] Obesity Obesity Problem Common [facility] Incontinen Incontinen Problem C ommon ce of ce of [facility] urine urine [facility] Cardiac Pacemaker Problem Commo n pacemaker Spirit in situ [facility] Hypertensi Hypertensi Problem C ommon on on Spirit [facility] [id number] Other Problem Common chronic Spirit pain [facility] [id number] Chronic Problem Commo n diastolic Spirit congestive [facility] heart [facility] Mixed Hyperlipem Problem Commo n hyperlipid ia, mixed Spi rit emia [facility] Pain Chronic Problem Common generalize Spirit d pain [facility] 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 - [facility] 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 Spirit - [facility] Degenerati Degenerati Problem C ommon on of on of Spirit lumbosacra lumbosacra - CHI l l St interverte interverte Rina kes bral disc bral disc [facility] 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, Spirit multiple multiple - CHI joints sites [facility] [id number] 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, - [facility]I stage 2 St (mild) [facility] [id number] 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 St (SNHL) of [facility] [id number] Erectile Problem Comm on dysfunctio Spirit n, - CHI unspecifie St d erectile [facility] dysfunctio Medica l n type Center [id number] BPH loc w Problem Com mon urin Spirit obs/LUTS [facility] [id number] BPH loc Problem Commo n w/o ur Spirit obs/LUTS [facility] [id number] OAB Problem Common (overactiv Spirit e bladder) [facility] Murmur Murmur Problem Common Spirit - [facility] [id number] Urge Problem Common incontinen Spirit ce [facility] Gastroesop Gastroesop Problem C ommon hageal hageal Spirit reflux reflux - CHI disease disease [facility] Aortic Aortic Problem Common valve valve [facility] stenosis stenosis [facility] [id number] 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 complicati [facility] [id number] Mild Problem Common protein-ca Spirit david - [facility] malnutriti St on [facility] [id number] Frequent Problem Comm on falls Spirit - [facility] Benign BPH Problem Common prostatic (benign Spirit hyperplasi prostatic - C HI a hyperplasi St a) [facility] Dizziness Dizziness Problem Active 2020-04-24 Memoria (finding) (finding) 21:34:13 l Active Vinay Problem 04/24/2020 [facility] Headache Headache Problem Active 2020-04-24 Memoria (finding) (finding) 21:34:13 l Active Vinay Problem 04/24/2020 [facility] Hyperlipid Hyperlipi Problem Active 2020-04-24 Memoria emia demia 21:34:13 l (disorder) (disorder) He rmann Active Problem 04/24/2020 [facility] Allergies, Adverse Reactions, Alerts Allergy Allergy Status Severity Reaction(s) Onset Inactive Treating Comm ents Source Name Type Date Date Clinician No Known No Known Active Memori a Medicati Medicati l on on Vinay Allergie Allergie s s atorvast atorvast Active Unknown Commo n atin atin Spirit - [facility] NO KNOWN Drug Active Univers ALLERGIE Class ity of S [facility] Social History Social Habit Start Date Stop Date Quantity Comments Source Exposure to Not sure [facility] SARS-CoV-[address] [facility] (event) Chancellor Sex Assigned At Common Sp ash - [facility] History of Common Spirit - Tobacco Use [facility] Social History 2020-02-19 2020-02-19 [facility] Jaclyn kate 15:56:39 15:56:39 Alcohol intake 2019-10-23 2019-10-23 Ex-drinker [facility] 00:00:00 00:00:00 (finding) [facility] Smoking Status Start Date Stop Date Source Former Smoker 2022-09-22 00:00:00 2022-09-22 00:00:00 Common S pirit [facility] Medications Ordered Filled Start Stop Current Ordering [...] 00:00: 00:00 edtime} 00 :00 zinc Yes [id number] 220mg Take 1 Unive rs sulfate 50 05-28 capsule by ity of mg zinc 00:00: mouth [place] (220 mg) 00 daily. Medical capsule Branch cholecalcif Yes [id number] 1000U Take 1 Univers caleb, - tablet by ity of vitamin D3, 00:00: mouth [place] 25 mcg 00 daily. Medical (1,000 Branch unit) tablet amLODIPine Yes 5mg Take 5 mg Un dawson 5 mg tablet 05-27 by mouth ity of 19:59: daily. Medical Branch tamsulosin Yes Take by Univ ers 0.4 mg 24 05-27 mouth ity of hr capsule 19:59: daily. Medical Branch tolterodine Yes 2mg Take 2 mg U nivers LA 2 mg 24 05-27 by mouth ity o f hr capsule 19:59: at [place] 00 bedtime. Medical Branch aspirin Yes 81mg Take 81 mg Univ ers (STU 05-27 by mouth ity of CHEWABLE 19:59: daily. [place] ASPIRIN) 81 00 Medical mg chewable Branch tablet acetaminoph Yes 650mg Take 650 U nivers en (TYLENOL 9-29 mg by ity of ARTHRITIS 19:59: mouth [place] PAIN ORAL) 00 every 8 Medica l (eight) Branch hours. ascorbic Yes [id number] 500mg Take 1 U nivers acid, 05-27 tablet by ity of vitamin C, 00:00: mouth [place] 500 mg 00 (two) Medical tablet times Branch daily. dexAMETHaso 2020- No [id number] 6mg Take 1 Univers ne 6 mg 05-27 tablet by ity of tablet 00:00: 04:59 mouth [place] 00 :00 daily for Medical 7 days. Branch codeine-gua 2020- No [id number] 10mL Take 10 mL Univers ifenesin 05-27 by mouth ity of 10-100 mg/5 00:00: 04:59 every 6 [place] mL oral 00 :00 (six) Medical solution hours as Branch needed for Cough for up to 7 days. Indication s: acute pain Amlodipine 2020-0 Yes 5 mg, PO, Me moria 6-23 Daily, 0 l 15:44: Refill(s) rosuvastati 2020-0 Yes 0 Memori a n 6- Refill(s) l 15:44: Amlodipine 2020-0 Yes 5 mg, PO, Me moria 6-23 Daily, 0 l 15:44: Refill(s) rosuvastati 2020-0 Yes 0 Memori a n 6- Refill(s) l 15:44: Amlodipine 2020-0 Yes 5 mg, PO, Me moria 6-23 Daily, 0 l 15:44: Refill(s) rosuvastati 2020-0 Yes 0 Memori a n 6- Refill(s) l 15:44: traMADol traMADol No 1{table QD traMADol HCl [...] High-Dose 0.5 ML 0.5 ML 0.5 ML Tylenol 325 Tylenol 325 No 1{table 6xD Tylenol MG MG t_as_ne 325 MG eded} Prevnar 13 Prevnar 13 No Prevnar 13 - - - Pantoprazol Pantoprazol No [...] Immunizations Ordered Filled Immunization Date Status Comments [facility] e Immunization Name Name SARS-COV-2 COVID-19 2020-12-12 Completed Unive rsity of PFIZER VACCINE 00:00:00 [facility] SARS-COV-2 COVID-19 2020-11-21 Completed Unive rsity of PFIZER VACCINE 00:00:00 [facility] Vital Signs Vital Name Observation Time Observation Value Comments Source height 2022-09-22 14:15:00 59 [in_i] Common [facility] weight 2022-09-22 14:15:00 174 [lb_av] [facility] temperature 2022-09-22 14:15:00 97.4 [degF] Common [facility] bmi 2022-09-22 14:15:00 35.14 kg/m2 Common [facility] oximetry 2022-09-22 14:15:00 96 % [facility] respiratory rate 2022-09-22 14:15:00 18 /min Comm on [facility] blood pressure 2022-09-22 14:15:00 140 mm[Hg] Common [facility] - systolic [facility] blood pressure 2022-09-22 14:15:00 71 mm[Hg] Common [facility] - diastolic [facility] height 2022-04-21 15:30:00 59 [in_i] Common [facility] weight 2022-04-21 15:30:00 168.6 [lb_av] [facility] temperature 2022-04-21 15:30:00 98.4 [degF] Common [facility] bmi 2022-04-21 15:30:00 34.05 kg/m2 [facility] oximetry 2022-04-21 15:30:00 96 % [facility] respiratory rate 2022-04-21 15:30:00 16 /min Comm on [facility] blood pressure 2022-04-21 15:30:00 162 mm[Hg] Common [facility] - systolic [facility] blood pressure 2022-04-21 15:30:00 67 mm[Hg] Common [facility] - diastolic [facility] Systolic (mm Hg) 2020-02-19 15:41:00 Fredis guajardo Vinay Diastolic (mm Hg) 2020-02-19 15:41:00 Castillo wilkinson [place] [facility] Rate 2020-02-19 15:41:00 Sarah Mclean Respitory Rate 2020-02-19 15:41:00 Diana Roque Height 2020-02-19 15:41:00 144.78 cm [facility] Vinay Weight 2020-02-19 15:41:00 [facility] Vinay BMI Calculated 2020-02-19 15:41:00 Memori al [place] Procedures This patient has no known procedures. Encounters Start End Encounter Admission Attending Care Care Encounter Source Date/Time Date/Time Type Type Clinicians Facility Department ID 2022-07-14 Outpatient BAY Davalos STLMLC [id number] Common 12:15:01 Antwan 75273 [facility] 2022-07-06 Outpatient BAY Davalos STLMLC [id number] Common 08:35:04 Antwan [facility] 2022-04-21 Outpatient BAY Davalso STLMLC [id number] Common 14:56:02 Antwan 09737 [facility] 2021-06-30 Emergency [facility] [id number] Univers 01:32:08 ity of [facility] 2022-09-22 2022-09-22 OFFICE STLMLC STLMLC [id number] Co mmon 00:00:00 00:00:00 VISIT [facility] PT - CHI LEVEL 2 [facility] 2022-04-28 2022-04-28 (TEL) STLMLC STLMLC [id number] Co mmon 00:00:00 00:00:00 Spirit [facility] 2022-04-21 2022-04-21 OFFICE STLMLC STLMLC [id number] Co mmon 00:00:00 00:00:00 VISIT [facility] PT - CHI LEVEL 5 [facility] 2021-05-28 2021-05-28 Transition Kwame Jade [id number] Univers 00:00:00 00:00:00 of Care Shayy Kwong [id number] it y [id number] [id number] [facility] [address] Branch 2021-05-25 2021-05-27 [facility]an [facility] [id number] Univers 09:21:00 19:44:00 Encounter Marko Rivas [id number] ity [id number] [id number] [facility] 080 Branch 2020-12-12 2020-12-12 Outpatient [facility] [id number] Univers 12:20:00 12:20:00 [facility] 2020-11-21 2020-11-21 Outpatient R GELACIO, [facility] [id number] Univers 12:20:00 12:20:00 ASHLIE [facility] 2020-08-26 2020-08-26 Outpatient R JAKE, [facility] [id number] Univers 14:40:00 14:40:00 STEPHANIE [facility] 2020-04-22 2020-04-22 Ambulatory nullFlavo MNA [id number] Memoria 16:15:00 16:15:00 Pre-Reg r Neurology 01 l [place] 2020-04-22 2020-04-22 Ambulatory nullFlavo MNA [id number] Memoria 16:15:00 16:15:00 Pre-Reg r Neurology 02 l [place] 2020-04-22 2020-04-22 Ambulatory nullFlavo MNA [id number] Memoria 16:15:00 16:15:00 Pre-Reg r Neurology 02 l [place] 2020-04-22 2020-04-22 Ambulatory nullFlavo MNA [id number] Memoria 16:15:00 16:15:00 Pre-Reg r Neurology 01 l [place] 2020-04-22 2020-04-22 Outpatient MHIE MHIE [id number] Memoria 11:15:00 11:15:00 01 alvin [place] 2020-04-22 2020-04-22 Outpatient MHIE MHIE [id number] Memoria 11:15:00 11:15:00 02 alvin [place] 2020-04-22 2020-04-22 Outpatient January, MHMISCHER MHMISCHER [id number] 11:15:00 11:15:00 Tk 01 Shiraz 2020-04-22 2020-04-22 Outpatient January, MHMISCHER MHMISCHER [id number] 11:15:00 11:15:00 Tk 02 Shiraz 2020-02-19 2020-02-20 Outpatient nullFlavo MNA [id number] Memoria 16:00:00 04:59:59 r Neurology 00 l [place] 2020-02-19 2020-02-20 Outpatient nullFlavo MNA [id number] Memoria 16:00:00 04:59:59 r Neurology 00 l [place] Vinay 2020-02-19 2020-02-19 [facility] [id number] 11:00:00 23:59:59 Tk 00 Shiraz 2020-02-19 2020-02-19 Outpatient MHIE MHIE [id number] Memoria 11:00:00 11:00:00 00 l Vinay 2019-11-13 2019-11-13 Outpatient SUZI ZARAGOZA [facility] [id number] Univers 13:00:00 13:00:00 SUZI FIGUEROA [facility] 2019-11-06 2019-11-06 [facility], [facility] [id number] 14:18:06 15:47:49 Visit Vascular Gary [id number] [id number] Professio [id number] nal 059 [facility] 2019-11-06 2019-11-06 Outpatient R [facility] [id number] Univers 14:00:00 14:00:00 [facility] 2019-10-23 2019-10-23 Outpatient SUZI ZARAGOZA [facility] [id number] Univers 13:00:00 13:00:00 SUZI FIGUEROA [facility] Results This patient has no known results.
[2023-01-19 16:30] VITALS: BMI 32.2
--- NOTE | 2023-01-19 17:25 | P.HP ---
Certification for Inpatient Patient admitted to: Inpatient With expected LOS: >2 Midnights Practitioner: I am a practitioner with admitting privileges, knowledge of patient current condition, hospital course, and medical plan of care. 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 He has a history of spinal stenosis and htn. The patient was in the hospital for pneumonia last week. He has not been eating and has been throwing up since his discharge. Patient came to the office today for follow up. He was tachycardic with a heart rate of 121. Considering his age the patient was sent to the hospital for direct admission and fluid therapy Allergies onion Allergy (Verified 12/24/19 08:39) Hives/Rash Penicillins Allergy (Verified 12/24/19 05:04) Hives/Rash Home Medications: Amlodipine [Norvasc*] 5 mg PO DAILY 01/10/23 Promethazine HCl 50 mg PO PRN 01/10/23 Tamsulosin [Flomax*] 0.4 mg PO DAILY 01/10/23 Trospium Chloride [Sanctura] 20 mg PO BEDTIME 01/10/23 - Past Medical/Surgical History Has patient received pneumonia vaccine in the past: Yes Diabetic: No -: HTN -: Hyperlipidemia -: Obesity -: Murmur -: Bradycardia -: bilateral cataract sx. -: hernia repair -: ulcer repair x 2 Psychosocial/ Personal History: . - Social History Smoking Status: Never smoker Alcohol use: No CD- Drugs: No Caffeine use: Yes Review of Systems 10-point ROS is otherwise unremarkable General: Weakness Gastrointestinal: Nausea, Vomiting, Abdominal Pain Physical Examination - Physical Exam General: Alert, In no apparent distress HEENT: Atraumatic, PERRLA, Mucous membr. moist/pink, EOMI, Sclerae nonicteric Neck: Supple, 2+ carotid pulse no bruit, No LAD, Without JVD or thyroid abnormality Respiratory: Clear to auscultation bilaterally, Normal air movement Cardiovascular: Normal S1 S2, Abnormal pulses (tachycardia ) Gastrointestinal: Normal bowel sounds, No tenderness Musculoskeletal: No tenderness Integumentary: No rashes Neurological: Normal gait, Normal speech, Normal strength at 5/5 x4 extr, Normal tone, Normal affect Lymphatics: No axilla or inguinal lymphadenopathy Assessment and Plan - Problems (Diagnosis) (1) Nausea & vomiting Current Visit: Yes Status: Acute Plan: will start him on fluids. Check labs. Start zofran. Consider consulting Dr. Ortiz Qualifiers: Vomiting type: unspecified Qualified Code(s): R11.2 - Nausea with vomiting, unspecified (2) Unspecified protein-calorie malnutrition Current Visit: Yes Status: Acute Plan: refer to pt. will monitor protein intake Qualifiers: Protein-calorie malnutrition severity: moderate Qualified Code(s): E44.0 - Moderate protein-calorie malnutrition (3) Spinal stenosis Current Visit: No Status: Acute Qualifiers: Spinal region: thoracolumbar Qualified Code(s): M48.05 - Spinal stenosis, thoracolumbar region (4) Hypertension Current Visit: No Status: Chronic Plan: hold bp meds for now. readjust in the am Qualifiers: Hypertension type: primary hypertension Qualified Code(s): I10 - Essential (primary) hypertension Discharge Plan: Home Plan to discharge in: Greater than 2 days - Advance Directives Does patient have a Living Will: No Does patient have a Durable POA for Healthcare: No - Code Status/Comfort Care Code Status Assessed: No Code Status: Full Code Physician Review: Patient Assessed, Agree with Above Assessment and Plan Critical Care: No Time Spent Managing Pts Care (In Minutes): 70
[2023-01-19] MEDS ORDERED: ONDANSETRON 4 MG/2 ML VIAL IV PRN (17:27)
[2023-01-19] MEDS: D5 0.45 NS 1,000 ML IV SCH (18:00)
[2023-01-19 18:37] LABS: Albumin 3.5 g/dL (3.4-5.0); Bilirubin Total 0.6 mg/dL (0.2-1.0); Potassium 4.2 mEq/L (3.5-5.1); Protein, Total 7.5 g/dL (6.4-8.2)
[2023-01-19 18:43] LABS: Absolute Lymphocytes (CBC) 1.7 K/uL (0.7-4.9); Hematocrit 32.4 % (39.6-49.0); Lymphocytes % 12.2 % (15.3-44.8); MCV 74.4 fL (80-100); MPV 8.4 fL (7.6-11.3); RBC Red Blood Cell Count 4.35 M/uL (4.33-5.43)
[2023-01-19] MEDS ORDERED: PERMETHRIN 5% 60 GM TUBE TOP SCH (20:00)
[2023-01-20] MEDS: D5 0.45 NS 1,000 ML IV SCH ×2 (04:01→14:18)
[2023-01-20 06:44] LABS: Absolute Lymphocytes (CBC) 1.5 K/uL (0.7-4.9); Hematocrit 31.3 % (39.6-49.0); Lymphocytes % 12.6 % (15.3-44.8); MCV 74.8 fL (80-100); MPV 8.2 fL (7.6-11.3); RBC Red Blood Cell Count 4.18 M/uL (4.33-5.43)
[2023-01-20 07:06] LABS: Albumin 3.2 g/dL (3.4-5.0); Bilirubin Total 0.4 mg/dL (0.2-1.0); Potassium 3.5 mEq/L (3.5-5.1); Protein, Total 6.8 g/dL (6.4-8.2)
[2023-01-20 07:15] LABS: Thyroid Stimulating Hormone 4.31 uIU/mL (0.358-3.740)
--- NOTE | 2023-01-20 08:10 | P.PN ---
Subjective Date of Service: 01/20/23 Primary Care Provider: Anoop Chief Complaint: nausea and vomiting, pem Subjective: Improving Review of Systems 10-point ROS is otherwise unremarkable Physical Examination - Vital Signs Temperature: 97.3 F Blood Pressure: 118/67 Pulse: 78 Respirations: 17 Pulse Ox (%): 98 - Physical Exam General: Alert, In no apparent distress HEENT: Atraumatic, PERRLA, EOMI Neck: Supple, JVD not distended Respiratory: Clear to auscultation bilaterally, Normal air movement Cardiovascular: Regular rate/rhythm, Normal S1 S2 Gastrointestinal: Normal bowel sounds, No tenderness Musculoskeletal: No tenderness Integumentary: No rashes Neurological: Normal speech, Normal tone, Normal affect Lymphatics: No axilla or inguinal lymphadenopathy - Studies Laboratory Data (last 24 hrs) 01/20/23 06:18: Sodium 136, Potassium 3.5 D, BUN 36 H, Creatinine 1.64 H, Glucose 113 H, Total Bilirubin 0.4, AST 22, ALT 21, Alkaline Phosphatase 70 01/20/23 06:18: WBC 11.90 H, Hgb 9.5 L, Hct 31.3 L, Plt Count 348 01/19/23 18:09: Sodium 136, Potassium 4.2, BUN 39 H, Creatinine 2.13 H, Glucose 65 L, Total Bilirubin 0.6, AST 31, ALT 27, Alkaline Phosphatase 79 01/19/23 18:09: WBC 13.80 H, Hgb 10.1 L, Hct 32.4 L, Plt Count 344 Assessment And Plan - Current Problems (Diagnosis) (1) Acute renal failure Current Visit: Yes Status: Acute Plan: most likely prerenal. Improving with fluids. will continue hydrating the patient Qualifiers: Acute renal failure type: unspecified Qualified Code(s): N17.9 - Acute kidney failure, unspecified (2) Nausea & vomiting Current Visit: Yes Status: Acute Plan: will start him on fluids. Check labs. Start zofran. Consider consulting Dr. Ortiz Qualifiers: Vomiting type: unspecified Qualified Code(s): R11.2 - Nausea with vomiting, unspecified (3) Unspecified protein-calorie malnutrition Current Visit: Yes Status: Acute Plan: refer to pt. 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 readjust in the am Qualifiers: Hypertension type: primary hypertension Qualified Code(s): I10 - Essential (primary) hypertension Discharge Plan: Home - Code Status/Comfort Care Code Status Assessed: No Physician Review: Patient Assessed, Agree with Above Assessment and Plan Critical Care: Yes Time Spent Managing PTS Care (In Minutes): 20
[2023-01-20] MEDS: JUVEN PACKET PO SCH (20:46)
[2023-01-20] MEDS: ENSURE CLEAR 200 ML CAN PO SCH (20:46)
[2023-01-21] MEDS: D5 0.45 NS 1,000 ML IV SCH ×2 (01:50)
[2023-01-21 06:25] LABS: Absolute Lymphocytes (CBC) 1.2 K/uL (0.7-4.9); Lymphocytes % 8.2 % (15.3-44.8); MCV 75.3 fL (80-100); MPV 8.1 fL (7.6-11.3); RBC Red Blood Cell Count 4.11 M/uL (4.33-5.43)
[2023-01-21 06:41] LABS: Albumin 2.7 g/dL (3.4-5.0); Bilirubin Total 0.4 mg/dL (0.2-1.0); Potassium 3.5 mEq/L (3.5-5.1); Protein, Total 6.1 g/dL (6.4-8.2)
[2023-01-21] MEDS: JUVEN PACKET PO SCH ×2 (08:08→22:07)
[2023-01-21] MEDS: ENSURE CLEAR 200 ML CAN PO SCH ×2 (08:08→22:06)
--- NOTE | 2023-01-21 11:18 | P.PN ---
Subjective Date of Service: 01/21/23 Primary Care Provider: Anoop Chief Complaint: nausea and vomiting, pem Subjective: No new changes Review of Systems 10-point ROS is otherwise unremarkable Physical Examination - Vital Signs Temperature: 97.1 F Blood Pressure: 132/76 Pulse: 77 Respirations: 16 Pulse Ox (%): 95 - Physical Exam General: Alert, In no apparent distress HEENT: Atraumatic, PERRLA, EOMI Neck: Supple, JVD not distended Respiratory: Clear to auscultation bilaterally, Normal air movement Cardiovascular: Regular rate/rhythm, Normal S1 S2 Gastrointestinal: Normal bowel sounds, No tenderness Musculoskeletal: No tenderness Integumentary: No rashes Neurological: Normal speech, Normal tone, Normal affect Lymphatics: No axilla or inguinal lymphadenopathy - Studies Laboratory Data (last 24 hrs) 01/21/23 06:03: Sodium 131 L D, Potassium 3.5, BUN 27 H, Creatinine 1.22, Glucose 134 H, Total Bilirubin 0.4, AST 20, ALT 17, Alkaline Phosphatase 64 01/21/23 06:03: WBC 14.20 H, Hgb 9.6 L, Hct 31.0 L, Plt Count 355 Assessment And Plan - Current Problems (Diagnosis) (1) Acute renal failure Current Visit: Yes Status: Acute Plan: most likely prerenal. Improving with fluids. will continue hydrating the pa tient Qualifiers: Acute renal failure type: unspecified Qualified Code(s): N17.9 - Acute kidney failure, unspecified (2) Nausea & vomiting Current Visit: Yes Status: Acute Plan: will start him on fluids. Check labs. Start zofran. Consider consulting Dr. Ortiz 01/21 tolerating liquids. Will advance to a soft diet. Qualifiers: Vomiting type: unspecified Qualified Code(s): R11.2 - Nausea with vomiting, unspecified (3) Unspecified protein-calorie malnutrition Current Visit: Yes Status: Acute Plan: refer to pt. 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 readjust in the am Qualifiers: Hypertension type: primary hypertension Qualified Code(s): I10 - Essential (primary) hypertension Discharge Plan: LTAC Plan to discharge in: 48 Hours - Code Status/Comfort Care Code Status Assessed: No Physician Review: Patient Assessed, Agree with Above Assessment and Plan Critical Care: No Time Spent Managing PTS Care (In Minutes): 20
[2023-01-22 07:33] LABS: Absolute Lymphocytes (CBC) 1.6 K/uL (0.7-4.9); Hematocrit 31.6 % (39.6-49.0); Lymphocytes % 13.3 % (15.3-44.8); MCV 74.9 fL (80-100); MPV 8.7 fL (7.6-11.3); RBC Red Blood Cell Count 4.22 M/uL (4.33-5.43)
[2023-01-22] MEDS: JUVEN PACKET PO SCH ×2 (07:38→20:02)
[2023-01-22] MEDS: ENSURE CLEAR 200 ML CAN PO SCH ×2 (07:38→20:01)
[2023-01-22 07:48] LABS: Albumin 2.6 g/dL (3.4-5.0); Bilirubin Total 0.5 mg/dL (0.2-1.0)
--- NOTE | 2023-01-22 12:58 | P.PN ---
Subjective Date of Service: 01/22/23 Primary Care Provider: Anoop Chief Complaint: nausea and vomiting, pem Subjective: No new changes Review of Systems 10-point ROS is otherwise unremarkable Gastrointestinal: Diarrhea Physical Examination - Vital Signs Temperature: 97.2 F Blood Pressure: 129/78 Pulse: 89 Respirations: 16 Pulse Ox (%): 94 - Physical Exam General: Alert, In no apparent distress HEENT: Atraumatic, PERRLA, EOMI Neck: Supple, JVD not distended Respiratory: Clear to auscultation bilaterally, Normal air movement Cardiovascular: Regular rate/rhythm, Normal S1 S2 Gastrointestinal: Normal bowel sounds, No tenderness Musculoskeletal: No tenderness Integumentary: No rashes Neurological: Normal speech, Normal tone, Normal affect Lymphatics: No axilla or inguinal lymphadenopathy - Studies Laboratory Data (last 24 hrs) 01/22/23 06:52: Sodium 134 L, Potassium 4.0 D, BUN 22 H, Creatinine 1.13, Glucose 88, Total Bilirubin 0.5, AST 17, ALT 15 L, Alkaline Phosphatase 68 01/22/23 06:52: WBC 11.90 H, Hgb 9.6 L, Hct 31.6 L, Plt Count 308 Assessment And Plan - Current Problems (Diagnosis) (1) Acute renal failure Current Visit: Yes Status: Acute Plan: most likely prerenal. Improving with fluids. will continue hydrating the patient Qualifiers: Acute renal failure type: unspecified Qualified Code(s): N17.9 - Acute ki dney failure, unspecified (2) Nausea & vomiting Current Visit: Yes Status: Acute Plan: will start him on fluids. Check labs. Start zofran. Consider consulting Dr. Ortiz 01/21 tolerating liquids. Will advance to a soft diet. Qualifiers: Vomiting type: unspecified Qualified Code(s): R11.2 - Nausea with vomiting, unspecified (3) Unspecified protein-calorie malnutrition Current Visit: Yes Status: Acute Plan: refer to pt. 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 readjust in the am Qualifiers: Hypertension type: primary hypertension Qualified Code(s): I10 - Essential (primary) hypertension (6) Diarrhea Current Visit: Yes Status: Acute Plan: Patient has had 6 episodes of diarrhea today. He has had a dose sent for c. dif. will start him on flagyl prophytlactically. If negative for c. dif we can start immodium Qualifiers: Diarrhea type: infectious Qualified Code(s): A09 - Infectious charlene roenteritis and colitis, unspecified Discharge Plan: Home - Code Status/Comfort Care Code Status Assessed: No Physician Review: Patient Assessed, Agree with Above Assessment and Plan Critical Care: No Time Spent Managing PTS Care (In Minutes): 20
[2023-01-22 13:36] LABS: C.diff Antigen/Toxin Ag neg : Tox neg (NEG : NEG)
[2023-01-22] MEDS: metroNIDAZOLE 500 MG TABLET PO SCH ×2 (14:12→19:55)
[2023-01-22] MEDS: LOPERAMIDE HCL 2 MG CAPSULE PO PRN ×2 (15:38→19:55)
[2023-01-23] MEDS: ENSURE CLEAR 200 ML CAN PO SCH ×2 (08:14→20:15)
[2023-01-23] MEDS: JUVEN PACKET PO SCH ×2 (08:14→20:15)
[2023-01-23] MEDS: metroNIDAZOLE 500 MG TABLET PO SCH ×3 (08:14→20:12)
--- NOTE | 2023-01-23 14:24 | P.PN ---
Subjective Date of Service: 01/23/23 Primary Care Provider: Anoop Chief Complaint: nausea and vomiting, pem Subjective: Improving (no episodes of diarrhea today) Review of Systems 10-point ROS is otherwise unremarkable Physical Examination - Vital Signs Temperature: 97.0 F Blood Pressure: 132/74 Pulse: 86 Respirations: 16 Pulse Ox (%): 97 - Physical Exam General: Alert, In no apparent distress HEENT: Atraumatic, PERRLA, EOMI Neck: Supple, JVD not distended Respiratory: Clear to auscultation bilaterally, Normal air movement Cardiovascular: Regular rate/rhythm, Normal S1 S2 Gastrointestinal: Normal bowel sounds, No tenderness Musculoskeletal: No tenderness Integumentary: No rashes Neurological: Normal speech, Normal tone, Normal affect Lymphatics: No axilla or inguinal lymphadenopathy Assessment And Plan - Current Problems (Diagnosis) (1) Acute renal failure Current Visit: Yes Status: Acute Plan: most likely prerenal. Improving with fluids. will continue hydrating the patient Qualifiers: Acute renal failure type: unspecified Qualified Code(s): N17.9 - Acute kidney failure, unspecified (2) Nausea & vomiting Current Visit: Yes Status: Acute Plan: will start him on fluids. Check labs. Start zofran. Consider consulting Dr. Ortiz 01/21 tolerating liquids. Will advance to a soft diet. Qualifiers: Vomiting type: unspecified Qualified Code(s): R11.2 - Nausea with vomiting, unspecified (3) Unspecified protein-calorie malnutrition Current Visit: Yes Status: Acute Plan: refer to pt. 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 readjust in the am Qualifiers: Hypertension type: primary hypertension Qualified Code(s): I10 - Essential (primary) hypertension (6) Diarrhea Current Visit: Yes Status: Acute Plan: Patient has had 6 episodes of diarrhea today. He has had a dose sent for c. dif. will start him on flagyl prophytlactically. If negative for c. dif we can start immodium Qualifiers: Diarrhea type: infectious Qualified Code(s): A09 - Infectious gastroenteritis and colitis, unspecified Discharge Plan: Home Plan to discharge in: 24 Hours - Code Status/Comfort Care Code Status Assessed: No Physician Review: Patient Assessed, Agree with Above Assessment and Plan Critical Care: No Time Spent Managing PTS Care (In Minutes): 20
[2023-01-24] MEDS: ENSURE CLEAR 200 ML CAN PO SCH ×2 (08:21→21:00)
[2023-01-24] MEDS: metroNIDAZOLE 500 MG TABLET PO SCH ×3 (08:21→22:05)
[2023-01-24] MEDS: JUVEN PACKET PO SCH ×2 (08:22→21:00)
--- NOTE | 2023-01-24 13:10 | P.PN ---
Subjective Date of Service: 01/24/23 Primary Care Provider: Anoop Chief Complaint: nausea and vomiting, pem Subjective: No new changes Review of Systems 10-point ROS is otherwise unremarkable Physical Examination - Vital Signs Temperature: 98.4 F Blood Pressure: 119/75 Pulse: 90 Respirations: 20 Pulse Ox (%): 98 - Physical Exam General: Alert, In no apparent distress HEENT: Atraumatic, PERRLA, EOMI Neck: Supple, JVD not distended Respiratory: Clear to auscultation bilaterally, Normal air movement Cardiovascular: Regular rate/rhythm, Normal S1 S2 Gastrointestinal: Normal bowel sounds, No tenderness Musculoskeletal: No tenderness Integumentary: No rashes Neurological: Normal speech, Normal tone, Normal affect Lymphatics: No axilla or inguinal lymphadenopathy Assessment And Plan - Current Problems (Diagnosis) (1) Diarrhea Current Visit: Yes Status: Acute Plan: Patient has had 6 episodes of diarrhea today. He has had a dose sent for c. dif. will start him on flagyl prophytlactically. If negative for c. dif we can start immodium Qualifiers: Diarrhea type: infectious Qualified Code(s): A09 - Infectious gastroenteritis and colitis, unspecified (2) Unspecified protein-calorie malnutrition Current Visit: Yes Status: Acute Plan: refer to pt. will monitor protein intake Qualifiers: Protein-calorie malnutrition severity: moderate Qualified Code(s): E44.0 - Moderate protein-calorie malnutrition (3) Spinal stenosis Current Visit: No Status: Acute Qualifiers: Spinal region: thoracolumbar Qualified Code(s): M48.05 - Spinal stenosis, thoracolumbar region (4) Hypertension Current Visit: No Status: Chronic Plan: hold bp meds for now. readjust in the am Qualifiers: Hypertension type: primary hypertension Qualified Code(s): I10 - Essential (primary) hypertension (5) Acute renal failure Current Visit: Yes Status: Resolved Plan: most likely prerenal. Improving with fluids. will continue hydrating the patient Qualifiers: Acute renal failure type: unspecified Qualified Code(s): N17.9 - Acute kidney failure, unspecified Physician Review: Patient Assessed, Agree with Above Assessment and Plan
[2023-01-24] MEDS ORDERED: D5 0.45 NS 500 ML IV ONE (14:00)
[2023-01-25 06:34] LABS: Absolute Lymphocytes (CBC) 2.1 K/uL (0.7-4.9); MCV 75.2 fL (80-100); MPV 8.7 fL (7.6-11.3); RBC Red Blood Cell Count 4.25 M/uL (4.33-5.43)
[2023-01-25 06:48] LABS: Potassium 4.1 mEq/L (3.5-5.1)
[2023-01-25] MEDS: metroNIDAZOLE 500 MG TABLET PO SCH ×3 (07:58→20:30)
[2023-01-25] MEDS: JUVEN PACKET PO SCH ×2 (07:59→20:30)
[2023-01-25] MEDS: ENSURE CLEAR 200 ML CAN PO SCH (07:59)
--- NOTE | 2023-01-25 12:51 | P.PN ---
Subjective Date of Service: 01/25/23 Primary Care Provider: Anoop Chief Complaint: nausea and vomiting, pem Subjective: No new changes Review of Systems 10-point ROS is otherwise unremarkable Physical Examination - Vital Signs Temperature: 97.6 F Blood Pressure: 118/81 Pulse: 82 Respirations: 18 Pulse Ox (%): 96 - Physical Exam General: Alert, In no apparent distress HEENT: Atraumatic, PERRLA, EOMI Neck: Supple, JVD not distended Respiratory: Clear to auscultation bilaterally, Normal air movement Cardiovascular: Regular rate/rhythm, Normal S1 S2 Gastrointestinal: Normal bowel sounds, No tenderness Musculoskeletal: No tenderness Integumentary: No rashes Neurological: Normal speech, Normal tone, Normal affect Lymphatics: No axilla or inguinal lymphadenopathy - Studies Laboratory Data (last 24 hrs) 01/25/23 06:10: Sodium 136, Potassium 4.1, BUN 33 H, Creatinine 0.93, Glucose 95 01/25/23 06:10: WBC 10.90, Hgb 9.9 L, Hct 32.0 L, Plt Count 313 Assessment And Plan - Current Problems (Diagnosis) (1) Diarrhea Current Visit: Yes Status: Acute Plan: Patient has had 6 episodes of diarrhea today. He has had a dose sent for c. dif. will start him on flagyl prophytlactically. If negative for c. dif we can start immodium Qualifiers: Diarrhea type: infectious Qualified Code(s): A09 - Infectious gastroenteritis and colitis, unspecified (2) Unspecified protein-calorie malnutrition Current Visit: Yes Status: Acute Plan: refer to pt. will monitor protein intake Qualifiers: Protein-calorie malnutrition severity: moderate Qualified Code(s): E44.0 - Moderate protein-calorie malnutrition (3) Spinal stenosis Current Visit: No Status: Acute Qualifiers: Spinal region: thoracolumbar Qualified Code(s): M48.05 - Spinal stenosis, thoracolumbar region (4) Hypertension Current Visit: No Status: Chronic Plan: hold bp meds for now. readjust in the am Qualifiers: Hypertension type: primary hypertension Qualified Code(s): I10 - Essential (primary) hypertension (5) Acute renal failure Current Visit: Yes Status: Resolved Plan: most likely prerenal. Improving with fluids. will continue hydrating the patient Qualifiers: Acute renal failure type: unspecified Qualified Code(s): N17.9 - Acute kidney failure, unspecified Discharge Plan: Home Plan to discharge in: 24 Hours - Code Status/Comfort Care Code Status Assessed: No Physician Review: Patient Assessed, Agree with Above Assessment and Plan Critical Care: No Time Spent Managing PTS Care (In Minutes): 20
[2023-01-25] MEDS: ENSURE HIGH PROTEIN 237 ML CAN PO SCH (20:30)
[2023-01-26 06:52] LABS: Hematocrit 30.2 % (39.6-49.0); Lymphocytes % 21.2 % (15.3-44.8); MCV 74.6 fL (80-100); MPV 8.6 fL (7.6-11.3); RBC Red Blood Cell Count 4.05 M/uL (4.33-5.43)
--- NOTE | 2023-01-26 07:56 | P.PN ---
Subjective Date of Service: 01/26/23 Primary Care Provider: Anoop Chief Complaint: nausea and vomiting, pem Subjective: No new changes Review of Systems 10-point ROS is otherwise unremarkable Physical Examination - Vital Signs Temperature: 97.8 F Blood Pressure: 138/72 Pulse: 79 Respirations: 16 Pulse Ox (%): 98 - Physical Exam General: Alert, In no apparent distress HEENT: Atraumatic, PERRLA, EOMI Neck: Supple, JVD not distended Respiratory: Clear to auscultation bilaterally, Normal air movement Cardiovascular: Regular rate/rhythm, Normal S1 S2 Gastrointestinal: Normal bowel sounds, No tenderness Musculoskeletal: No tenderness Integumentary: No rashes Neurological: Normal speech, Normal tone, Normal affect Lymphatics: No axilla or inguinal lymphadenopathy - Studies Laboratory Data (last 24 hrs) 01/26/23 06:35: WBC 9.30, Hgb 9.6 L, Hct 30.2 L, Plt Count 313 Assessment And Plan - Current Problems (Diagnosis) (1) Unspecified protein-calorie malnutrition Current Visit: Yes Status: Acute Plan: refer to pt. will monitor protein intake Qualifiers: Protein-calorie malnutrition severity: moderate Qualified Code(s): E44.0 - Moderate protein-calorie malnutrition (2) Spinal stenosis Current Visit: No Status: Acute Qualifiers: Spinal region: thoracolumbar Qualified Code(s): M48.05 - Spinal stenosis, thoracolumbar region (3) Hypertension Current Visit: No Status: Chronic Plan: hold bp meds for now. readjust in the am Qualifiers: Hypertension type: primary hypertension Qualified Code(s): I10 - Essential (primary) hypertension (4) Acute renal failure Current Visit: Yes Status: Resolved Plan: most likely prerenal. Improving with fluids. will continue hydrating the patient Qualifiers: Acute renal failure type: unspecified Qualified Code(s): N17.9 - Acute kidney failure, unspecified (5) Diarrhea Current Visit: Yes Status: Resolved Plan: Patient has had 6 episodes of diarrhea today. He has had a dose sent for c. dif. will start him on flagyl prophytlactically. If negative for c. dif we can start immodium Qualifiers: Diarrhea type: infectious Qualified Code(s): A09 - Infectious gastroenteritis and colitis, unspecified Discharge Plan: [facility] Plan to discharge in: 24 Hours - Code Status/Comfort Care Code Status Assessed: No Physician Review: Patient Assessed, Agree with Above Assessment and Plan Critical Care: No Time Spent Managing PTS Care (In Minutes): 20
[2023-01-26] MEDS: ENSURE HIGH PROTEIN 237 ML CAN PO SCH ×2 (09:00→20:49)
[2023-01-26] MEDS: JUVEN PACKET PO SCH ×2 (09:00→20:49)
[2023-01-26] MEDS: metroNIDAZOLE 500 MG TABLET PO SCH ×3 (09:47→20:51)
[2023-01-26 22:15] VITALS: O2SAT 97
[2023-01-27 06:53] LABS: Hematocrit 36.3 % (39.6-49.0); Lymphocytes % 19.6 % (15.3-44.8); MCV 75.8 fL (80-100); RBC Red Blood Cell Count 4.79 M/uL (4.33-5.43)
[2023-01-27] MEDS: JUVEN PACKET PO SCH (09:00)
[2023-01-27] MEDS: ENSURE HIGH PROTEIN 237 ML CAN PO SCH (09:00)
[2023-01-27] MEDS: metroNIDAZOLE 500 MG TABLET PO SCH ×2 (09:10→15:18)
[2023-01-27 09:55] LABS: SARS-CoV-2 Antigen Rapid Res Negative (Negative)
--- NOTE | 2023-01-27 12:36 | P.DS ---
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 He has a history of spinal stenosis and htn. The patient was in the hospital for pneumonia last week. He has not been eating and has been throwing up since his discharge. Patient came to the office today for follow up. He was tachycardic with a heart rate of 121. Considering his age the patient was sent to the hospital for direct admission and fluid therapy Hospital Course: Patient was admitted for weakness and diarrhea. He has some recurrent diarrhea. Started him on Flagyl. He has improved from that stand point. However not eating well. He has poor mobility. As he lives with an elderly will put him in a SNF. He has been accepted by [place]. Will follow up with him there. Thank you for allowing me to take part in his care. Vital Signs/Physical Exam: Temp Pulse Resp BP Pulse Ox 97.8 F 78 16 127/75 93 01/27/23 08:00 01/27/23 08:00 01/27/23 08:00 01/27/23 08:00 01/27/23 08:00 General: Alert, In no apparent distress HEENT: Atraumatic, PERRLA, EOMI Neck: Supple, JVD not distended Respiratory: Clear to auscultation bilaterally, Normal air movement Cardiovascular: Regular rate/rhythm, Normal S1 S2 Gastrointestinal: Normal bowel sounds, No tenderness Musculoskeletal: No tenderness Integumentary: No rashes Neurological: Normal speech, Normal tone, Normal affect Lymphatics: No axilla or inguinal lymphadenopathy Laboratory Data at Discharge: WBC 10.00 thou/uL (4.3-10.9) 01/27/23 05:27 Hgb 11.2 g/dL (13.6-17.9) L D 01/27/23 05:27 Hct 36.3 % (39.6-49.0) L 01/27/23 05:27 Plt Count 325 thou/uL (152-406) 01/27/23 05:27 Sodium 136 mEq/L (136-145) 01/25/23 06:10 Potassium 4.1 mEq/L (3.5-5.1) 01/25/23 06:10 BUN 33 mg/dL (7-18) H 01/25/23 06:10 Creatinine 0.93 mg/dL (0.70-1.30) 01/25/23 06:10 Glucose 95 mg/dL (74-106) 01/25/23 06:10 Total Bilirubin 0.5 mg/dL (0.2-1.0) 01/22/23 06:52 AST 17 U/L (15-37) 01/22/23 06:52 ALT 15 U/L (16-61) L 01/22/23 06:52 Alkaline Phosphatase 68 U/L (45-117) 01/22/23 06:52 Home Medications: Amlodipine [Norvasc*] 5 mg PO DAILY 01/10/23 Promethazine HCl 50 mg PO PRN 01/10/23 Tamsulosin [Flomax*] 0.4 mg PO DAILY 01/10/23 Trospium Chloride [Sanctura] 20 mg PO BEDTIME 01/10/23 Diet: Regular Physician Review: Patient Assessed, Agree with Above Assessment and Plan Time spent managing pt's care (in minutes): 30
[2023-01-27 12:40] VITALS: BP 121/78; TEMP 97.4
== END 2023-01-27 16:19 | DRG 392 ==
LOC: 2ND 15:29
PROVIDERS: ADMIT Internal Medicine; ATTEND Internal Medicine
DX: A09 Infectious gastroenteritis and colitis, unspecified (principal); R65.10 Systemic inflammatory response syndrome (SIRS) of non-infectious origin without acute organ dysfunction; E44.0 Moderate protein-calorie malnutrition; N17.9 Acute kidney failure, unspecified; I10 Essential (primary) hypertension; E78.5 Hyperlipidemia, unspecified; M48.05 Spinal stenosis, thoracolumbar region; Z88.0 Allergy status to penicillin; Z68.32 Body mass index [BMI] 32.0-32.9, adult; Z91.018 Allergy to other foods; Z79.899 Other long term (current) drug therapy; Z20.822 Contact with and (suspected) exposure to COVID-19
CPT/HCPCS: 36415; 80048; 80053; 84439; 84443; 85025; 87177; 87209; 87324; 87811; 97116; 97161; 97165; 97530; J2405; J7799

== ENCOUNTER 2023-02-03 17:17 | Inpatient (IN) | payer OTHER ==
--- OUTSIDE RECORDS SUMMARY | 2023-02-03 17:21 | XMS REPORT | Continuity of Care Document ---
:1935 Author Organization [facility] t Address [address] [facility] [place] [address] Care Team Providers Name Role Phone Antwan [...] Type Policy Number Effective Date Expiration Date Randi padilla [facility] [id number] 2020 COMP HMO D SNP 00:00:00 [place] [id number] 2020 Common HEALTHCARE DUAL 00:00:00 Spirit - [facility] PAT [facility] [id number] 2019 PLUS 00:00:00 Problems Condition Condition Condition [...] reference reference 00:[place] [facility] Elevated Elevated Disease Active Unive [...] due to due to Branch COVID-19 COVID-19 Degenerati Degenerati Problem C ommon on of on of Spirit lumbosacra lumbosacra - CHI l l St interverte interverte Rina kes bral disc bral disc [facility] 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, Spirit multiple multiple - [facility] joints sites [facility] [id number] 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, - [facility]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) [facility] [id number] 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 St (SNHL) of [facility] both [facility] [id number] Erectile Problem Comm on dysfunctio Spirit n, - [facility] unspecifie [facility] erectile [facility] dysfunctio Medica n type Center [id number] BPH loc w Problem Com mon urin Spirit obs/LUTS - CHI [facility] [id number] BPH loc Problem Commo n w/o ur Spirit obs/LUTS - CHI [facility] [id number] OAB Problem Common (overactiv Spirit e bladder) - [facility] Murmur Murmur Problem Common Spirit - [facility] [id number] Urge Problem Common incontinen Spirit ce [facility] Gastroesop Gastroesop Problem C ommon hageal hageal Spirit reflux reflux - [facility] disease disease [facility] Aortic Aortic Problem Common valve valve Spirit stenosis stenosis - [facility] [id number] 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 Dizziness Problem Active 2020-04-24 Me moria (finding) Dizziness 21:34:13 l (finding) [place] Active Problem 04/24/2020 [facility] Headache Headache Problem Active 2020-04-24 Memoria (finding) (finding) 21:34:13 l Active Vinay Problem 04/24/2020 [facility] Hyperlipid Hyperlipi Problem Active 2020-04-24 Memoria emia demia 21:34:13 l (disorder) (disorder) He rmann Active Problem 04/24/2020 [facility] Claudicati Claudicati Problem C ommon on on [facility] Edema Edema Problem Common [facility] Obesity Obesity Problem Common [facility] Incontinen Incontinen Problem C trini ce of ce of Spirit urine urine - [facility] Cardiac Pacemaker Problem Commo n pacemaker Spirit in situ - [facility] Hypertensi Hypertensi Problem C ommon on on [facility] [id number] Other Problem Common chronic Spirit pain - [facility] [id number] Chronic Problem Commo n diastolic Spirit congestive - [facility] heart [facility] Mixed Hyperlipem Problem Commo n hyperlipid ia, mixed Spi rit emia - [facility] Pain Chronic Problem Common generalize Spirit d pain - [facility] 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 - [facility] 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 [facility] Allergies, Adverse Reactions, Alerts Allergy Allergy Status Severity Reaction(s) Onset Inactive Treating Comm ents Source Name Type Date Date Clinician NO KNOWN Drug Active Univers ALLERGIE Class ity of S [facility] No Known No Known Active Memori a Medicati Medicati l on on Cos[place] Allergie Allergie s s atorvast atorvast Active Unknown Commo n atin atin [facility] Social History Social Habit Start Date Stop Date Quantity Comments Source Sex Assigned At Common Sp ash - [facility] History of Common Spirit - Tobacco Use [facility] Exposure to Not sure University SARS-CoV-2 [facility] (event) [place] Social History 2020-02-19 2020-02-19 [facility] kate 15:56:39 15:56:39 Alcohol intake 2019-10-23 2019-10-23 Ex-drinker [facility] 00:00:00 00:00:00 (finding) [facility] Smoking Status Start Date Stop Date Source Former Smoker 2022-09-22 00:00:00 2022-09-22 00:00:00 [facility] pirit [facility] Medications Ordered Filled Start Stop Current Ordering Indication Dosage Frequency Signature Comments Components Source Medication Medication Date Date Medication? Clinician (SIG) Name Name Trospium Trospium 2022- No 1{table QD Trospium Chloride 20 Chloride 20 09-22 05-25 t_at_be Chloride MG MG 00:00: 00:00 dtime_o [...] 00:00: 00:00 edtime} 00 :00 zinc Yes [id number] 220mg Take 1 Unive rs sulfate 50 05-28 capsule by ity of mg zinc 00:00: mouth [place] (220 mg) 00 daily. Medical capsule Branch cholecalcif Yes [id number] 1000U Take 1 Univers caleb, 05-28 tablet by ity of vitamin D3, 00:00: [...] by mouth ity of CHEWABLE 19:59: daily. [place] ASPIRIN) 81 00 Medical mg chewable Branch tablet acetaminoph Yes 650mg Take 650 U nivers en (TYLENOL 9-29 mg by ity of ARTHRITIS 19:59: mouth [place] PAIN ORAL) 00 every 8 Medica l (eight) Branch hours. ascorbic Yes [id number] 500mg Take 1 U nivers acid, 05-27 tablet by ity of vitamin C, 00:00: mouth 2 [place] 500 mg 00 (two) Medical tablet times Branch daily. dexAMETHaso 2020- No [id number] 6mg Take 1 Univers ne 6 mg [...] 2020-0 Yes 5 mg, PO, Me moria 6- Daily, 0 l 15:44: Refill(s) rosuvastati 2020-0 Yes 0 Memori a n 6- Refill(s) l 15:44: Amlodipine 2020-0 Yes 5 mg, PO, Me moria 6- Daily, 0 l 15:44: Refill(s) rosuvastati 2020-0 [...] 0.5 ML Prevnar 13 Prevnar 13 No Prev 13 - - - amLODIPine amLODIPine No QD amLODIPine Besylate 5 Besylate 5 Besylate 5 MG MG MG Immunizations Ordered Filled Immunization Date Status Comments Sour e Immunization Name Name SARS-COV-2 COVID-19 2020-12-12 Completed Unive rsity of PFIZER VACCINE 00:00:00 [facility] SARS-COV-2 COVID-19 2020-11-21 Completed Unive rsity of PFIZER VACCINE 00:00:00 [facility] Vital Signs Vital Name Observation Time Observation Value Comments Source height 2022-09-22 14:15:00 59 [in_i] Common [facility] weight 2022-09-22 14:15:00 174 [lb_av] Common [facility] temperature 2022-09-22 14:15:00 97.4 [degF] Common [facility] bmi 2022-09-22 14:15:00 35.14 kg/m2 Common [facility] oximetry 2022-09-22 14:15:00 96 % Common [facility] respiratory rate 2022-09-22 14:15:00 18 /min Comm on [facility] blood pressure 2022-09-22 14:15:00 140 mm[Hg] Common [facility] - systolic [facility] blood pressure 2022-09-22 14:15:00 71 mm[Hg] Common [facility] - diastolic [facility] height 2022-04-21 15:30:00 59 [in_i] Common [facility] weight 2022-04-21 15:30:00 168.6 [lb_av] Common [facility] temperature 2022-04-21 15:30:00 98.4 [degF] Common [facility] bmi 2022-04-21 15:30:00 34.05 kg/m2 [facility] oximetry 2022-04-21 15:30:00 96 % [facility] respiratory rate 2022-04-21 15:30:00 16 /min Comm on [facility] blood pressure 2022-04-21 15:30:00 162 mm[Hg] Common [facility] - systolic [facility] blood pressure 2022-04-21 15:30:00 67 mm[Hg] Common [facility] - diastolic [facility] Systolic (mm Hg) 2020-02-19 15:41:00 Fredis Mclean Diastolic (mm Hg) 2020-02-19 15:41:00 Mem orial Vinay Heart Rate 2020-02-19 15:41:00 [facility] Cosby Respitory Rate 2020-02-19 15:41:00 Diana Roque Height 2020-02-19 15:41:00 144.78 cm Sarah Contrerasann Weight 2020-02-19 15:41:00 Sarah Mclean BMI Calculated 2020-02-19 15:41:00 Diana Roque Procedures This patient has no known procedures. Encounters Start End Encounter Admission Attending Care Care Encounter Source Date/Time Date/Time Type Type Clinicians Facility Department ID 2022-07-14 Outpatient Anoop, STLMLC STLMLC [id number] Common 12:15:01 Antwan [facility] 2022-07-06 Outpatient Anoop, STLMLC STLMLC [id number] Common 08:35:04 Antwan [facility] 2022-04-21 Outpatient Anoop, STLMLC STLMLC [id number] Common 14:56:02 Antwan [address]1113 [facility] 2021-06-30 Emergency [facility] [id number] Univers 01:32:08 ity [facility] 2022-09-22 2022-09-22 OFFICE STLMLC STLMLC [id number] Co mmon 00:00:00 00:00:00 VISIT Spirit ESTAB PT - CHI LEVEL 2 [facility] 2022-04-28 2022-04-28 (TEL) STLMLC STLMLC [id number] Co mmon 00:00:00 00:00:00 Spirit - CHI [facility] 2022-04-21 2022-04-21 OFFICE STLMLC STLMLC [id number] Co mmon 00:00:00 00:00:00 VISIT Spirit ESTAB PT - CHI LEVEL 5 [facility] 2021-05-28 2021-05-28 Transition Kwame Jade [id number] Univers 00:00:00 00:00:00 of Care Shayy Kwong [id number] it y of [place] [id number] Carla randi [id number] [place] [id number] Branch 2021-05-25 2021-05-27 [facility] Tran Keller [facility] [id number] Univers 09:21:00 19:44:00 Encounter Marko Rivas [id number] [facility] [id number] [facility] [id number] [place] [address] Branch 2020-12-12 2020-12-12 Outpatient [facility] [id number] Univers 12:20:00 12:20:00 [facility] 2020-11-21 2020-11-21 Outpatient R GELACIO, [facility] [id number] Univers 12:20:00 12:20:00 ASHLIE [facility] 2020-08-26 2020-08-26 Outpatient R JAKE, [facility] [id number] Univers 14:40:00 14:40:00 OMAYEMI [facility] 2020-04-22 2020-04-22 Ambulatory nullFlavo MNA [id number] Memoria 16:15:00 16:15:00 Pre-Reg r Neurology 02 l [facility] 2020-04-22 2020-04-22 Ambulatory nullFlavo MNA [id number] Memoria 16:15:00 16:15:00 Pre-Reg r Neurology 01 l [place] Cosby 2020-04-22 2020-04-22 Ambulatory nullFlavo MNA [id number] Memoria 16:15:00 16:15:00 Pre-Reg r Neurology 02 l [place] Cosby 2020-04-22 2020-04-22 Ambulatory nullFlavo MNA [id number] Memoria 16:15:00 16:15:00 Pre-Reg r Neurology 01 l [facility] 2020-04-22 2020-04-22 Outpatient MHIE MHIE [id number] Memoria 11:15:00 11:15:00 02 l [place] 2020-04-22 2020-04-22 Outpatient MHIE MHIE [id number] Memoria 11:15:00 11:15:00 01 alvin Cos[place] 2020-04-22 2020-04-22 Outpatient EUSEBIO SinMISCHER MHMISCHER [id number] 11:15:00 11:15:00 Tk 01 Shir[place] 2020-04-22 2020-04-22 Outpatient January MHMISCHER MHMISCHER [id number] 11:15:00 11:15:00 Tk 02 Shiraz 2020-02-19 2020-02-20 Outpatient nullFlavo MNA [id number] Memoria 16:00:00 04:59:59 r Neurology 00 l Lois Mclean 2020-02-19 2020-02-20 Outpatient nullFlavo MNA [id number] Memoria 16:00:00 04:59:59 r Neurology 00 l Lois Mclean 2020-02-19 2020-02-[address] [facility] [id number] 11:00:00 23:59:59 Tk 00 Shiraz 2020-02-19 2020-02-19 Outpatient MHIE MHIE [id number] Memoria 11:00:00 11:00:00 00 l [place] 2019-11-13 2019-11-13 Outpatient SUZI ZARAGOZA [facility] [id number] Univers 13:00:00 13:00:00 SUZI FIGUEROA [facility] 2019-11-06 2019-11-06 [facility] [id number] 14:18:06 15:47:49 Visit Vascular [place] [id number] [id number] Professio [id number] nal [address] [facility] 2019-11-06 2019-11-06 Outpatient R [facility] [id number] Univers 14:00:00 14:00:00 [facility] 2019-10-23 2019-10-23 Outpatient SUZI ZARAGOZA [facility] [id number] Univers 13:00:00 13:00:00 SUZI FIGUEROA [facility] Results This patient has no known results.
[2023-02-03] MEDS ORDERED: ONDANSETRON 4 MG/2 ML VIAL IV PRN (18:07)
--- NOTE | 2023-02-03 18:32 | P.HP ---
Certification for Inpatient Patient admitted to: Inpatient With expected LOS: >2 Midnights Patient will require the following post-hospital care: Chcf Practitioner: I am a practitioner with admitting privileges, knowledge of patient current condition, hospital course, and medical plan of care. 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 He was admitted 2 weeks ago for pneumonia. He was doing well. However after discharge he had a lot of nausea and vomiting. He was readmitted for weakness and vomiting. Was treated with Flagyl. Unfortunately C diff toxin was stopped. The patient was sent to [facility] for PT. However he was having intermittent vomiting. Today he had 2 episodes. We got an abdominal flat plate which showed a possible bowel obstruction. Decided on Direct admission to the hospital. When he got her the patient was tachycardic and looking week. Allergies onion Allergy (Verified 12/24/19 08:39) Hives/Rash Penicillins Allergy (Verified 12/24/19 05:04) Hives/Rash Home Medications: Amlodipine [Norvasc*] 5 mg PO DAILY 01/10/23 Promethazine HCl 50 mg PO PRN 01/10/23 Tamsulosin [Flomax*] 0.4 mg PO DAILY 01/10/23 Trospium Chloride [Sanctura] 20 mg PO BEDTIME 01/10/23 Omeprazole 20 mg PO DAILY 90 Days #90 tab 01/27/23 metroNIDAZOLE [Flagyl] 500 mg PO TID 5 Days #15 tab 01/27/23 - Past Medical/Surgical History Diabetic: No -: HTN -: Hyperlipidemia -: Obesity -: Murmur -: Bradycardia -: bilateral cataract sx. -: hernia repair -: ulcer repair x 2 Psychosocial/ Personal History: . - Social History Alcohol use: No CD- Drugs: No Caffeine use: Yes Review of Systems 10-point ROS is otherwise unremarkable General: Weakness Gastrointestinal: Nausea, Vomiting Physical Examination - Physical Exam General: Alert, Moderate distress HEENT: Atraumatic, PERRLA, Other (dry mucus membranes. ), EOMI, Sclerae nonicteric Neck: Supple, 2+ carotid pulse no bruit, No LAD, Without JVD or thyroid abnormality Respiratory: Clear to auscultation bilaterally, Normal air movement Cardiovascular: Regular rate/rhythm, Normal S1 S2 Gastrointestinal: Normal bowel sounds, No tenderness Musculoskeletal: No tenderness Integumentary: No rashes Neurological: Normal gait, Normal speech, Normal strength at 5/5 x4 extr, Normal tone, Normal affect Lymphatics: No axilla or inguinal lymphadenopathy Assessment and Plan - Problems (Diagnosis) (1) Bowel obstruction Current Visit: Yes Status: Acute Plan: will admit the patient. Start him on iv fluids. Order a CT scan. Have the patient seen by Dr. Alvarez. Will order stool studies and C diff studies. If needed we can restart him on Flagyl. Qualifiers: Intestinal obstruction type: unspecified Intestinal obstruction extent: unspecified extent Qualified Code(s): K56.609 - Unspecified intestinal obstruction, unspecified as to partial versus complete obstruction (2) Spinal stenosis Current Visit: No Status: Chronic Plan: Patient is stable. Will restart his PT when he is more stable. Qualifiers: Spinal region: lumbar Neurogenic claudication status: unspecified Qualified Code(s): M48.061 - Spinal stenosis, lumbar region without neurogenic claudication (3) Hypertension Current Visit: No Status: Chronic Plan: hold bp meds for now. Qualifiers: Hypertension type: primary hypertension Discharge Plan: Custodial Plan to discharge in: Greater than 2 days - Advance Directives Does patient have a Living Will: No Does patient have a Durable POA for Healthcare: No - Code Status/Comfort Care Code Status Assessed: Yes Code Status: Full Code Physician Review: Patient Assessed, Agree with Above Assessment and Plan Critical Care: No Time Spent Managing Pts Care (In Minutes): 70
[2023-02-03] MEDS ORDERED: NA CHLORIDE 0.9% 500 ML IV SCH (19:00)
[2023-02-03] MEDS ORDERED: NA CHLORIDE 0.9% 500 ML IV ONE (19:09)
[2023-02-03 20:36] VITALS: BMI 31.4
[2023-02-03] MEDS: ENOXAPARIN 40 MG/0.4 ML SQ SCH (21:22)
[2023-02-03] MEDS: D5 0.45 NS 1,000 ML IV SCH (21:22)
[2023-02-04] MEDS: D5 0.45 NS 1,000 ML IV SCH ×2 (06:27→16:41)
[2023-02-04] MEDS: PANTOPRAZOLE 40MG TABLET PO SCH (07:30)
[2023-02-04 07:42] LABS: Hematocrit 32.9 % (39.6-49.0); Lymphocytes % 9.9 % (15.3-44.8); MCV 74.6 fL (80-100); RBC Red Blood Cell Count 4.41 M/uL (4.33-5.43)
[2023-02-04 07:59] LABS: Albumin 2.8 g/dL (3.4-5.0); Bilirubin Total 0.3 mg/dL (0.2-1.0); Potassium 3.7 mEq/L (3.5-5.1); Protein, Total 6.2 g/dL (6.4-8.2)
[2023-02-04 08:00] LABS: Thyroid Stimulating Hormone 3.96 uIU/mL (0.358-3.740)
[2023-02-04] MEDS ORDERED: PNEUMOCOCCAL VACCINE 0.5 ML IMVAC ONE (08:00)
--- NOTE | 2023-02-04 08:14 | P.PN ---
Subjective Date of Service: 02/04/23 Primary Care Provider: Anoop Chief Complaint: bowel obstruction Subjective: No new changes Review of Systems 10-point ROS is otherwise unremarkable General: Weakness, Malaise Physical Examination - Vital Signs Temperature: 97.5 F Blood Pressure: 139/86 Pulse: 67 Respirations: 18 Pulse Ox (%): 99 - Physical Exam General: Alert, In no apparent distress HEENT: Atraumatic, PERRLA, EOMI Neck: Supple, JVD not distended Respiratory: Clear to auscultation bilaterally, Normal air movement Cardiovascular: Regular rate/rhythm, Normal S1 S2 Gastrointestinal: Normal bowel sounds, No tenderness Musculoskeletal: No tenderness Integumentary: No rashes Neurological: Normal speech, Normal tone, Normal affect Lymphatics: No axilla or inguinal lymphadenopathy - Studies Laboratory Data (last 24 hrs) 02/04/23 07:02: Sodium 135 L, Potassium 3.7, BUN 33 H, Creatinine 1.06, Glucose 158 H, Total Bilirubin 0.3, AST 22, ALT 12 L, Alkaline Phosphatase 59 02/04/23 07:02: WBC 10.50, Hgb 10.4 L, Hct 32.9 L, Plt Count 233 Assessment And Plan - Current Problems (Diagnosis) (1) Bowel obstruction Current Visit: Yes Status: Acute Plan: will admit the patient. Start him on iv fluids. Order a CT scan. Have the patient seen by Dr. Alvarez. Will order stool studies and C diff studies. If needed we can restart him on Flagyl. 02/[address] results. Will keep him npo Qualifiers: Intestinal obstruction type: unspecified Intestinal obstruction extent: unspecified extent Qualified Code(s): K56.609 - Unspecified intestinal obstruction, unspecified as to partial versus complete obstruction (2) Spinal stenosis Current Visit: No Status: Chronic Plan: Patient is stable. Will restart his PT when he is more stable. Qualifiers: Spinal region: lumbar Neurogenic claudication status: unspecified Qualified Code(s): M48.061 - Spinal stenosis, lumbar region without neurogenic claudication (3) Hypertension Current Visit: No Status: Chronic Plan: hold bp meds for now. Qualifiers: Hypertension type: primary hypertension Discharge Plan: Penitentiary Plan to discharge in: Greater than 2 days - Code Status/Comfort Care Code Status Assessed: No Physician Review: Patient Assessed, Agree with Above Assessment and Plan Critical Care: No Time Spent Managing PTS Care (In Minutes): 20
--- NOTE | 2023-02-04 08:24 | RAD REPORT ---
EXAM DESCRIPTION: CT - Abdomen Pelvis Wo Contrast - 02/03/2023 11:12 pm CLINICAL HISTORY: Abdominal pain. small bowel obstruction COMPARISON: Chest Abdomen Pelvis W Cont dated 01/09/2023 TECHNIQUE: CT imaging of the abdomen and pelvis was performed without contrast. Solid organ, bowel a nd vascular assessment is limited due to lack of IV and oral contrast. All CT scans are performed using dose optimization technique as appropriate and may include automated exposure control or mA/KV adjustment according to patient size. FINDINGS: Mild linear atelectasis in both posterior lung bases. Pacemaker wires present. The liver, spleen, pancreas, adrenal glands and kidneys are within normal limits for a limited non-co ntrast examination. Marked distention of the stomach and small bowel loops compatible with moderately severe mechanical s mall bowel obstruction. This appears to be caused by in masslike lesion in the region of the cecum/an astomosis of the ileum with the colon. Most likely, this is a malignancy although assessment is limit ed. Mildly atrophic [place] kidneys. Pancreas, adrenal glands, liver and spleen show no gross noncontrast finding. IMPRESSION: Significant mechanical small-bowel obstruction is present involving the stomach and smal l bowel loops in the abdomen. No pneumoperitoneum. This is possibly a result of a masslike lesion visualized in the region of the cecum of the colon res ulting in obstruction at the level of the ileocecal valve. Recommend colonoscopy for direct visualiza tion of the cecum. A limited non-contrast examination was performed as detailed.
[2023-02-04] MEDS: THIAMINE HCL 100 MG TABLET PO SCH (08:55)
--- NOTE | 2023-02-04 14:23 | CON ---
Date of Consultation: 02/04/2023 Brief History Of Present Illness: The patient is an 87-year-old man who is a patient of Dr. Davalos wh o was recently seen at his office with complaints of abdominal pain. He had an admission for pneumon ia 2 weeks prior and noted at Dr. Davalos's office significant increase in his nausea, vomiting, and wa s sent to the hospital for admission for his nausea, vomiting, and mild abdominal pain. The patient was at [place] for PT, but continued to have vomiting episodes. He had a flat plate KUB, which show ed possible bowel obstruction. As such, he was directly admitted to the hospital for ongoing workup. Past Medical History: Significant for hypertension, hyperlipidemia, obesity, heart murmur, bradycard ia. Past Surgical History: Bilateral cataract surgery, hernia repair, ulcer repair x2. The patient is a poor historian during my examination and cannot recall details of his past. Allergies: ONION, PENICILLIN. Home Medications: Include Norvasc, Phenergan, Flomax, Sanctura, omeprazole, and Flagyl. Review of Systems: Ten-point review of systems unable to obtain as patient is lethargic during my examination. Physical Examination: General: He is awake, lethargic, but arousable, responds to questions appropriately, but with a sign ificant delay in his answering of questions with long pauses and requires frequent redirection. HEENT: Otherwise normocephalic. His sclerae were anicteric. His mucous membranes were moist. His oropharynx was clear. Neck: Supple without JVD. Chest: Normal expansion and excursion. Cardiovascular: Regular rate and rhythm during my examination. Abdomen: Distended with mild global tenderness to palpation. No peritoneal signs. No rebound or gu arding. Extremities: No clubbing, cyanosis, edema. Skin: Warm and dry. Vital Signs: Blood pressure at the time of my examination 139/86, pulse 67, respiratory rate 18, tem perature 97.5, SpO2 99% on room air. Laboratory Data: White blood cell count of 10.5, hemoglobin 10.4, hematocrit of 32.9, platelet count is 233, neutrophils 75%. Sodium 135, potassium 3.7, chloride 107, carbon dioxide is 20, creatinine is 1.06, glucose is 158. His total bilirubin is 0.3, AST is 22, ALT 12, alk phos is 59. He had a CT scan of the abdomen and pelvis performed on 02/03 officially read as significant mechanical small ray wel obstruction is present involving the stomach and small bowel loops in the abdomen. No pneumoperi toneum, possibly masslike lesion visualized in the region of the cecum of the colon result ing in obstruction at the level of ileocecal valve. Recommend colonoscopy for direct visualization o f cecum. Assessment And Plan: This is an 87-year-old man who comes in with signs and symptoms of bowel obstru ction of uncertain etiology, possibly ileocolonic in origin. 1.IV fluid hydration. 2.N.p.o. status. 3.NG tube decompression. 4.Serial abdominal exams. 5.I recommend prepping in anticipation for a colonoscopy during this admission. 6.Continue medical management per Dr. Davalos. I have explained the risks, benefits, alternatives of above stated plan. The patient has agreed to proceed as indicated. Thank you for this interesting consult. FIONA/CHIKA Voice ID: [id number] Report ID: [id number]
--- NOTE | 2023-02-04 15:08 | RAD REPORT ---
EXAM DESCRIPTION: RAD - Abdomen 1 View (KUB) - 02/04/2023 2:52 pm CLINICAL HISTORY: Device placement nasogastric tube placement FINDINGS: Nasogastric tube has been placed. The tip lies within the left lateral upper quadrant of the abdomen presumably within the gastric fundus. Marked dilatation of stomach is present.
[2023-02-04] MEDS: ENOXAPARIN 40 MG/0.4 ML SQ SCH (16:38)
[2023-02-05] MEDS: D5 0.45 NS 1,000 ML IV SCH ×3 (01:49→21:34)
[2023-02-05] MEDS: PANTOPRAZOLE 40MG TABLET PO SCH (07:30)
[2023-02-05 07:33] LABS: Hematocrit 32.7 % (39.6-49.0); Lymphocytes % 9.8 % (15.3-44.8); MCV 74.4 fL (80-100); MPV 8.5 fL (7.6-11.3)
[2023-02-05 07:48] LABS: Albumin 2.6 g/dL (3.4-5.0); Bilirubin Total 0.3 mg/dL (0.2-1.0); Potassium 3.7 mEq/L (3.5-5.1)
[2023-02-05] MEDS: THIAMINE HCL 100 MG TABLET PO SCH (08:19)
[2023-02-05] MEDS ORDERED: BISACODYL 10 MG RECTAL SUPP PR PRN (10:53)
--- NOTE | 2023-02-05 12:53 | P.PN ---
Subjective Date of Service: 02/05/23 Primary Care Provider: Anoop Chief Complaint: bowel obstruction Subjective: No new changes Review of Systems 10-point ROS is otherwise unremarkable Physical Examination - Vital Signs Temperature: 97.8 F Blood Pressure: 131/80 Pulse: 104 Respirations: 16 Pulse Ox (%): 100 - Physical Exam General: Alert, In no apparent distress HEENT: Atraumatic, PERRLA, Other (ng tube in place ), EOMI Neck: Supple, JVD not distended Respiratory: Clear to auscultation bilaterally, Normal air movement Cardiovascular: Regular rate/rhythm, Normal S1 S2 Gastrointestinal: Normal bowel sounds, No tenderness Musculoskeletal: No tenderness Integumentary: No rashes Neurological: Normal speech, Normal tone, Normal affect Lymphatics: No axilla or inguinal lymphadenopathy - Studies Laboratory Data (last 24 hrs) 02/05/23 07:18: Sodium 133 L, Potassium 3.7, BUN 23 H, Creatinine 0.81, Glucose 159 H, Total Bilirubin 0.3, AST 20, ALT 12 L, Alkaline Phosphatase 58 02/05/23 07:18: WBC 9.80, Hgb 10.5 L, Hct 32.7 L, Plt Count 222 Microbiology Data (last 24 hrs): 02/03/23 21:00 Wound - Sacral Gram Stain - Final Assessment And Plan - Current Problems (Diagnosis) (1) Bowel obstruction Current Visit: Yes Status: Acute Plan: will admit the patient. Start him on iv fluids. Order a CT scan. Have the patient seen by Dr. Alvarez. Will order stool studies and C diff studies. If needed we can restart him on Flagyl. 02/[address] results. Will keep him npo Qualifiers: Intestinal obstruction type: unspecified Intestinal obstruction extent: unspecified extent Qualified Code(s): K56.609 - Unspecified intestinal obstruction, unspecified as to partial versus complete obstruction (2) Spinal stenosis Current Visit: No Status: Chronic Plan: Patient is stable. Will restart his PT when he is more stable. Qualifiers: Spinal region: lumbar Neurogenic claudication status: unspecified Qualified Code(s): M48.061 - Spinal stenosis, lumbar region without neurogenic claudication (3) Hypertension Current Visit: No Status: Chronic Plan: hold bp meds for now. Qualifiers: Hypertension type: primary hypertension Discharge Plan: [facility] Plan to discharge in: Greater than 2 days - Code Status/Comfort Care Code Status Assessed: No Physician Review: Patient Assessed, Agree with Above Assessment and Plan Critical Care: No Time Spent Managing PTS Care (In Minutes): 20
[2023-02-05 14:40] LABS: C.diff Antigen/Toxin Ag neg : Tox neg (NEG : NEG)
[2023-02-05] MEDS: ENOXAPARIN 40 MG/0.4 ML SQ SCH (18:18)
[2023-02-05] MEDS: FAMOTIDINE 20 MG/2 ML VIAL IV SCH (21:33)
[2023-02-06] MEDS ORDERED: LORazepam 2 MG/ML VIAL IV ONE (00:51)
[2023-02-06] MEDS ORDERED: LORazepam 2 MG/ML VIAL ONE (01:06)
[2023-02-06] MEDS: D5 0.45 NS 1,000 ML IV SCH ×2 (06:15→07:54)
[2023-02-06 06:53] LABS: Absolute Lymphocytes (CBC) 1.2 K/uL (0.7-4.9); Hematocrit 34.2 % (39.6-49.0); Lymphocytes % 14.1 % (15.3-44.8); MPV 9.2 fL (7.6-11.3); RBC Red Blood Cell Count 4.62 M/uL (4.33-5.43)
[2023-02-06 07:12] LABS: Albumin 2.5 g/dL (3.4-5.0); Bilirubin Total 0.3 mg/dL (0.2-1.0); Potassium 3.6 mEq/L (3.5-5.1); Protein, Total 5.9 g/dL (6.4-8.2)
[2023-02-06] MEDS: FAMOTIDINE 20 MG/2 ML VIAL IV SCH ×2 (07:56→20:29)
[2023-02-06] MEDS ORDERED: PIPER TAZO 3.375 GM in NA CHLORIDE 0.9% 100 ML IV SCH (11:00)
--- NOTE | 2023-02-06 11:55 | P.PN ---
Subjective Date of Service: 02/06/23 Primary Care Provider: Anoop Chief Complaint: bowel obstruction Subjective: No new changes Review of Systems is unable to be obtained Physical Examination - Vital Signs Temperature: 97.7 F Blood Pressure: 107/73 Pulse: 109 Respirations: 17 Pulse Ox (%): 94 - Physical Exam General: Unresponsive HEENT: Atraumatic, PERRLA, EOMI Neck: Supple, JVD not distended Respiratory: Clear to auscultation bilaterally, Normal air movement Cardiovascular: Regular rate/rhythm, Normal S1 S2 Gastrointestinal: Normal bowel sounds, No tenderness Musculoskeletal: No tenderness Integumentary: No rashes Neurological: Normal speech, Normal tone, Normal affect Lymphatics: No axilla or inguinal lymphadenopathy - Studies Laboratory Data (last 24 hrs) 02/06/23 06:37: Sodium 132 L, Potassium 3.6, BUN 20 H, Creatinine 0.79, Glucose 120 H, Total Bilirubin 0.3, AST 20, ALT 13 L, Alkaline Phosphatase 60 02/06/23 06:37: WBC 8.20, Hgb 10.7 L, Hct 34.2 L, Plt Count 237 Microbiology Data (last 24 hrs): 02/05/23 13:10 Stool Fecal Leukocyte Stain - Final 02/03/23 21:00 Wound - Sacral Gram Stain - Final 02/03/23 21:00 Wound - Sacral Culture & Sensitivity - Final Pseudomonas Aeruginosa Assessment And Plan - Current Problems (Diagnosis) (1) Bowel obstruction Current Visit: Yes Status: Acute Plan: will admit the patient. Start him on iv fluids. Order a CT scan. Have the patient seen by Dr. Alvarez. Will order stool studies and C diff studies. If needed we can restart him on Flagyl. 02/06 ng tube to suction. Will start him on tpn Qualifiers: Intestinal obstruction type: unspecified Intestinal obstruction extent: unspecified extent Qualified Code(s): K56.609 - Unspecified intestinal obstruction, unspecified as to partial versus complete obstruction (2) Spinal stenosis Current Visit: No Status: Chronic Plan: Patient is stable. Will restart his PT when he is more stable. Qualifiers: Spinal region: lumbar Neurogenic claudication status: unspecified Qualified Code(s): M48.061 - Spinal stenosis, lumbar region without neurogenic claudication (3) Hypertension Current Visit: No Status: Chronic Plan: hold bp meds for now. Qualifiers: Hypertension type: primary hypertension (4) Wound infection Current Visit: Yes Status: Acute Plan: pseudomonas sensitive to meropenemn. Will start him on this Discharge Plan: Home Plan to discharge in: 24 Hours - Code Status/Comfort Care Code Status Assessed: No Physician Review: Patient Assessed, Agree with Above Assessment and Plan Critical Care: No Time Spent Managing PTS Care (In Minutes): 25
[2023-02-06] MEDS ORDERED: ZIPRASIDONE MESYLA 20 MG/VIAL IM PRN ×2 (12:50→13:06)
[2023-02-06] MEDS ORDERED: WATER FOR INJ,STERILE 10 ML IM PRN (12:50)
[2023-02-06] MEDS: Meropenem 1,000 MG in NA CHLORIDE 0.9% 100 ML IV SCH ×2 (13:01→20:28)
--- NOTE | 2023-02-06 15:38 | RAD REPORT ---
EXAM DESCRIPTION: RAD - Abdomen 1 View (KUB) - 02/06/2023 3:02 pm CLINICAL HISTORY: Device placement nasogastric tube placement FINDINGS: A nasogastric tube is coiled within the esophagus. The mid and distal portion ascend the e sophagus. The tip appears to lie within the pharynx or mouth
[2023-02-06] MEDS ORDERED: D50W 25 GM/50 ML SYRINGE IV PRN (16:08)
[2023-02-06] MEDS ORDERED: GLUCAGON 1 MG/VIAL IM PRN (16:08)
--- NOTE | 2023-02-06 16:15 | P.PN ---
Subjective Date of Service: 02/05/23 Primary Care Provider: Anoop Chief Complaint: bowel obstruction Subjective: No new changes (Patient remains confused.) Physical Examination - Vital Signs Temperature: 97.5 F Blood Pressure: 110/70 Pulse: 97 Respirations: 17 Pulse Ox (%): 94 - Physical Exam General: In no apparent distress, Cooperative, Confused Cardiovascular: Other (tachycardia, otherwise unremarkable) Gastrointestinal: Other (soft, non-tender, mildly distended, no rebound, no guarding, patient denies pain on exam even with deep palpation.) - Studies Laboratory Data (last 24 hrs) 02/06/23 06:37: Sodium 132 L, Potassium 3.6, BUN 20 H, Creatinine 0.79, Glucose 120 H, Total Bilirubin 0.3, AST 20, ALT 13 L, Alkaline Phosphatase 60 02/06/23 06:37: WBC 8.20, Hgb 10.7 L, Hct 34.2 L, Plt Count 237 Microbiology Data (last 24 hrs): 02/05/23 13:10 Stool Fecal Leukocyte Stain - Final 02/03/23 21:00 Wound - Sacral Gram Stain - Final 02/03/23 21:00 Wound - Sacral Culture & Sensitivity - Final Pseudomonas Aeruginosa Assessment And Plan - Plan 87 year old man with bowel obstruction - continue medical management - serial abodminal exams - NGT decompression - if patient has bowel function, will consider bowel prep for possible colonoscopy to evaluate the area of concern for the bowel obstruction - if unable to bowel prep or patient has worsening or non-progression, will consider exploratory laparotomy, laparoscopy - consider PICC.TPN if anticipate not able to meet nutritional goals soon - strict I/O - Lovenox - antibiotics for positve culture Physician Review: Patient Assessed, Agree with Above Assessment and Plan
--- NOTE | 2023-02-06 16:17 | P.PN ---
Subjective Date of Service: 02/06/23 Primary Care Provider: Anoop Chief Complaint: bowel obstruction patient removed NTG, remains confused Physical Examination - Vital Signs Temperature: 97.5 F Blood Pressure: 110/70 Pulse: 97 Respirations: 17 Pulse Ox (%): 94 - Physical Exam General: In no apparent distress, Cooperative, Confused Gastrointestinal: Other (soft, non-tender, no rebound, no peritonitis, mild dystention - similar to prior exam) - Studies Laboratory Data (last 24 hrs) 02/06/23 06:37: Sodium 132 L, Potassium 3.6, BUN 20 H, Creatinine 0.79, Glucose 120 H, Total Bilirubin 0.3, AST 20, ALT 13 L, Alkaline Phosphatase 60 02/06/23 06:37: WBC 8.20, Hgb 10.7 L, Hct 34.2 L, Plt Count 237 Microbiology Data (last 24 hrs): 02/05/23 13:10 Stool Fecal Leukocyte Stain - Final 02/03/23 21:00 Wound - Sacral Gram Stain - Final 02/03/23 21:00 Wound - Sacral Culture & Sensitivity - Final Pseudomonas Aeruginosa Assessment And Plan - Plan 87 year old man with bowel obstruction - continue medical management per Dr. Davalos - serial abodminal exams - NGT decompression - if patient has bowel function, will consider bowel prep for possible colonoscopy to evaluate the area of concern for the bowel obstruction - if unable to bowel prep or patient has worsening or non-progression, will consider exploratory laparotomy, laparoscopy - consider PICC.TPN if anticipate not able to meet nutritional goals soon - strict I/O - Lovenox - antibiotics for positve culture Physician Review: Patient Assessed, Agree with Above Assessment and Plan
[2023-02-06] MEDS: INSULIN -REGULAR HUMAN 50 UNIT/0.5 ML ML SQ SCH ×2 (16:30→21:00)
--- NOTE | 2023-02-06 16:47 | RAD REPORT ---
EXAM DESCRIPTION: RAD - Abdomen 1 View (KUB) - 02/06/2023 4:15 pm CLINICAL HISTORY: Device placement nasogastric tube placement FINDINGS: A nasogastric tube is coiled within the stomach. The tip lies within the mid to distal st omach
--- NOTE | 2023-02-06 17:35 | RAD REPORT ---
EXAM DESCRIPTION: CT - Head C Spine Mpr Wo Con - 02/06/2023 5:22 pm CLINICAL HISTORY: Alteration of consciousness/confusion/neck pain COMPARISON: None. TECHNIQUE: Computed axial tomography of the head and cervical spine was obtained. Sagittal and coronal reconstruction was performed. All CT scans are performed using dose optimization technique as appropriate and may include automated exposure control or mA/KV adjustment according to patient size. FINDINGS: An intracranial bleed is not seen. The ventricles are normal in caliber. Mild low-density areas within periventricular, deep and subcortical white matter likely ischemic jones ges secondary to small vessel disease. An extra-axial fluid collection is not noted. Fluid within the visualized sinuses and mastoids is not seen Prominent scoliosis involves the cervical spine. An old fracture involves the base of the odontoid process. The borders are sclerotic. Fragments are s eparated by 2 millimeters. Considerable loss of the normal lordosis of the cervical spine is present. Mild anterior subluxation of C4 on C5 and C5 on C6 is present. Fusion involves C6 and 7. No acute fracture or dislocation. Spondylosis involves the cervical spine IMPRESSION: No acute intracranial abnormality is seen. Old C2 fracture No acute fracture noted. If the patient continues to have symptoms to suggest intracranial /spinal cord pathology then MRI wou ld be recommended
[2023-02-06] MEDS: D5 0.9 NS 1,000 ML IV SCH (17:43)
[2023-02-06] MEDS: ENOXAPARIN 40 MG/0.4 ML SQ SCH (17:43)
[2023-02-06] MEDS: Mupirocin NASAL 2 APPL/1 GM TUBE NAS SCH (20:29)
[2023-02-07] MEDS: Meropenem 1,000 MG in NA CHLORIDE 0.9% 100 ML IV SCH ×3 (04:00→20:16)
[2023-02-07] MEDS: D5 0.9 NS 1,000 ML IV SCH ×2 (05:10→15:00)
[2023-02-07] MEDS: INSULIN -REGULAR HUMAN 50 UNIT/0.5 ML ML SQ SCH ×4 (07:30→20:16)
[2023-02-07] MEDS: FAMOTIDINE 20 MG/2 ML VIAL IV SCH ×2 (08:08→20:16)
[2023-02-07] MEDS: Mupirocin NASAL 2 APPL/1 GM TUBE NAS SCH ×2 (08:09→20:16)
--- NOTE | 2023-02-07 08:21 | P.PN ---
Subjective Date of Service: 02/07/23 Primary Care Provider: Anoop Chief Complaint: bowel obstruction patient is a bit more responsive today Review of Systems 10-point ROS is otherwise unremarkable Physical Examination - Vital Signs Temperature: 97.9 F Blood Pressure: 93/53 Pulse: 53 Respirations: 15 Pulse Ox (%): 94 - Physical Exam General: Alert, In no apparent distress HEENT: Atraumatic, PERRLA, EOMI Neck: Supple, JVD not distended Respiratory: Normal air movement, Crackles/rales Cardiovascular: Regular rate/rhythm, Normal S1 S2 Gastrointestinal: Normal bowel sounds, No tenderness Musculoskeletal: No tenderness Integumentary: No rashes Neurological: Normal speech, Normal tone, Normal affect Lymphatics: No axilla or inguinal lymphadenopathy - Studies Microbiology Data (last 24 hrs): 02/05/23 13:10 Stool Fecal Leukocyte Stain - Final 02/03/23 21:00 Wound - Sacral Gram Stain - Final 02/03/23 21:00 Wound - Sacral Culture & Sensitivity - Final Pseudomonas Aeruginosa Assessment And Plan - Current Problems (Diagnosis) (1) Bowel obstruction Current Visit: Yes Status: Acute Plan: will admit the patient. Start him on iv fluids. Order a CT scan. Have the patient seen by Dr. Alvarez. Will order stool studies and C diff studies. If needed we can restart him on Flagyl. 02/07 ng tube has a lot of drainage this morning. Picc line pending Qualifiers: Intestinal obstruction type: unspecified Intestinal obstruction extent: unspecified extent Qualified Code(s): K56.609 - Unspecified intestinal obstruction, unspecified as to partial versus complete obstruction (2) Spinal stenosis Current Visit: No Status: Chronic Plan: Patient is stable. Will restart his PT when he is more stable. Qualifiers: Spinal region: lumbar Neurogenic claudication status: unspecified Qualified Code(s): M48.061 - Spinal stenosis, lumbar region without neurogenic claudication (3) Hypertension Current Visit: No Status: Chronic Plan: hold bp meds for now. Qualifiers: Hypertension type: primary hypertension (4) Wound infection Current Visit: Yes Status: Acute Plan: pseudomonas sensitive to meropenemn. Will start him on this Discharge Plan: [facility] Living Plan to discharge in: Greater than 2 days - Code Status/Comfort Care Code Status Assessed: No Physician Review: Patient Assessed, Agree with Above Assessment and Plan Critical Care: No Time Spent Managing PTS Care (In Minutes): 20
[2023-02-07] MEDS ORDERED: ACETYLCYST 20% 4 ML VIAL IH ONE (08:25)
--- NOTE | 2023-02-07 08:28 | RAD REPORT ---
EXAM DESCRIPTION: RAD - Abdomen 1 View (KUB) - 02/07/2023 6:02 am CLINICAL HISTORY: f/u SBO Pain COMPARISON: Abdomen 1 View (KUB) dated 02/06/2023; Abdomen 1 View (KUB) dated 02/06/2023; Abdomen 1 Vi ew (KUB) dated 02/06/2023; Abdomen 1 View (KUB) dated 02/04/2023 FINDINGS: Mildly prominent small bowel loops are present in the left abdomen. Overall, the appearanc e of the small bowel distention with gas is mildly improved. No free air. Enteric tube is coiled in the stomach. Moderate levoscoliosis of the lumbar spine. IMPRESSION: Mild improvement in adynamic ileus since comparative study.
[2023-02-07 09:33] VITALS: O2SAT 99
--- NOTE | 2023-02-07 12:05 | RAD REPORT ---
EXAM DESCRIPTION: RAD - Abdomen 1 View (KUB) - 02/07/2023 11:59 am CLINICAL HISTORY: Placement of NGT/OGT. Post Insertion. Pain COMPARISON: Abdomen 1 View (KUB) dated 02/07/2023; Abdomen 1 View (KUB) dated 02/06/2023; Abdomen 1 Vi ew (KUB) dated 02/06/2023; Abdomen 1 View (KUB) dated 02/06/2023 FINDINGS: Enteric tube is coiled in the stomach.
--- NOTE | 2023-02-07 12:21 | RAD REPORT ---
EXAM DESCRIPTION: RAD - Abdomen 1 View (KUB) - 02/06/2023 12:25 am CLINICAL HISTORY: 87 years Male, NGT COMPARISON: None. FINDINGS/IMPRESSION: Single AP view of the upper abdomen. NG tube tip and side-port project over the stomach. Left infraclavicular generator pack and partially visualized pacing leads. Bibasilar opacit ies may represent atelectasis or infection. Electronically signed by: Asya Galvin MD 02/06/2023 12:35 AM CDT Due to temporary technical issues with the PACS/Fluency reporting system, reports are being signed by the in house radiologist without review as a courtesy to ensure prompt reporting. The interpreting r adiologist is fully responsible for the content of the report.
[2023-02-07] MEDS: LEVALBUTEROL 0.63 MG/3 ML NEB NEB SCH ×2 (13:34→19:00)
--- NOTE | 2023-02-07 15:32 | RAD REPORT ---
EXAM DESCRIPTION: RAD - Abdomen 1 View (KUB) - 02/07/2023 3:10 pm CLINICAL HISTORY: Device placement nasogastric tube placement FINDINGS: Tip of a nasogastric tube lies within the lateral gastric fundus
[2023-02-07] MEDS: ENOXAPARIN 40 MG/0.4 ML SQ SCH (16:20)
--- NOTE | 2023-02-07 16:29 | RAD REPORT ---
EXAM DESCRIPTION: RAD - Abdomen 1 View (KUB) - 02/07/2023 4:13 pm CLINICAL HISTORY: Device placement nasogastric tube placement FINDINGS: Tip of a nasogastric tube lies within the proximal gastric body
[2023-02-08] MEDS: LEVALBUTEROL 0.63 MG/3 ML NEB NEB SCH ×4 (01:20→19:15)
[2023-02-08] MEDS: D5 0.9 NS 1,000 ML IV SCH ×2 (01:30→09:00)
[2023-02-08] MEDS: Meropenem 1,000 MG in NA CHLORIDE 0.9% 100 ML IV SCH ×3 (04:00→20:50)
[2023-02-08] MEDS: INSULIN -REGULAR HUMAN 50 UNIT/0.5 ML ML SQ SCH ×4 (07:30→20:50)
--- NOTE | 2023-02-08 08:30 | P.PN ---
Subjective Date of Service: 02/08/23 Primary Care Provider: Anoop Chief Complaint: bowel obstruction Subjective: Worsening patient is not complainting. However he looks weaker Review of Systems 10-point ROS is otherwise unremarkable General: Weakness Physical Examination - Vital Signs Temperature: 97.5 F Blood Pressure: 112/50 Pulse: 52 Respirations: 18 Pulse Ox (%): 96 - Physical Exam General: Alert, Mild distress HEENT: Atraumatic, PERRLA, EOMI Neck: Supple, JVD not distended Respiratory: Clear to auscultation bilaterally, Normal air movement Cardiovascular: Regular rate/rhythm, Normal S1 S2 Gastrointestinal: Normal bowel sounds, No tenderness Musculoskeletal: No tenderness Integumentary: No rashes Neurological: Normal speech, Normal tone, Normal affect Lymphatics: No axilla or inguinal lymphadenopathy - Studies Microbiology Data (last 24 hrs): 02/05/23 13:10 Stool Culture & Sensitivity - Final Assessment And Plan - Current Problems (Diagnosis) (1) Bowel obstruction Current Visit: Yes Status: Acute Plan: will admit the patient. Start him on iv fluids. Order a CT scan. Have the patient seen by Dr. Alvarez. Will order stool studies and C diff studies. If needed we can restart him on Flagyl. 02/08 Patient is weaker. Pulls out his NG tube. have discussed with Dr. Alvarez. Will meet with Spouse and discuss hospice. Qualifiers: Intestinal obstruction type: unspecified Intestinal obstruction extent: unspecified extent Qualified Code(s): K56.609 - Unspecified intestinal obstruction, unspecified as to partial versus complete obstruction (2) Spinal stenosis Current Visit: No Status: Chronic Plan: Patient is stable. Will restart his PT when he is more stable. Qualifiers: Spinal region: lumbar Neurogenic claudication status: unspecified Qualified Code(s): M48.061 - Spinal stenosis, lumbar region without neurogenic claudication (3) Hypertension Current Visit: No Status: Chronic Plan: hold bp meds for now. Qualifiers: Hypertension type: primary hypertension (4) Wound infection Current Visit: Yes Status: Acute Plan: pseudomonas sensitive to meropenemn. Will start him on this Discharge Plan: Home Plan to discharge in: 24 Hours - Code Status/Comfort Care Code Status Assessed: No Physician Review: Patient Assessed, Agree with Above Assessment and Plan Critical Care: No Time Spent Managing PTS Care (In Minutes): 20
[2023-02-08] MEDS: FAMOTIDINE 20 MG/2 ML VIAL IV SCH ×2 (08:58→20:51)
[2023-02-08] MEDS: Mupirocin NASAL 2 APPL/1 GM TUBE NAS SCH ×2 (08:59→20:50)
[2023-02-08] MEDS ORDERED: DEXTROSE 10%-WATER 500 ML IV SCH (11:00)
--- NOTE | 2023-02-08 12:37 | RAD REPORT ---
EXAM DESCRIPTION: RAD - Abdomen 1 View (KUB) - 02/07/2023 8:32 am CLINICAL HISTORY: Clear liquid COMPARISON: Abdomen 1 View (KUB) dated 02/07/2023; Abdomen 1 View (KUB) dated 02/04/2023; Abdomen 1 Vie w (KUB) dated 02/06/2023; Abdomen Pelvis Wo Contrast dated 02/03/2023 TECHNIQUE: Single AP view of the abdomen. FINDINGS: Large single gas bubble in the central abdomen, correlating to a markedly distended stomac h seen on CT of the previous day. Paucity of bowel gas throughout the remainder of the abdomen, a non specific finding. Moderate stool burden in the rectum. No evidence of free air or pneumatosis. No suspicious calcifications. No significant bony abnormality. IMPRESSION: Marked stomach distention and paucity of bowel gas throughout the remainder of the abdom en as above.
[2023-02-08] MEDS: ENOXAPARIN 40 MG/0.4 ML SQ SCH (16:58)
[2023-02-08] MEDS ORDERED: AA 4.25 %/D5W/ELECTROLYTES 2,000 ML IV SCH (17:00)
[2023-02-09] MEDS ORDERED: INSULIN -REGULAR HUMAN 50 UNIT/0.5 ML ML SQ SCH
[2023-02-09] MEDS: LEVALBUTEROL 0.63 MG/3 ML NEB NEB SCH ×4 (01:05→20:00)
[2023-02-09] MEDS: Meropenem 1,000 MG in NA CHLORIDE 0.9% 100 ML IV SCH ×3 (03:52→21:57)
[2023-02-09] MEDS: INSULIN -REGULAR HUMAN 50 UNIT/0.5 ML ML SQ SCH ×3 (06:00→17:27)
[2023-02-09] MEDS: FAMOTIDINE 20 MG/2 ML VIAL IV SCH ×2 (08:05→21:58)
[2023-02-09] MEDS: Mupirocin NASAL 2 APPL/1 GM TUBE NAS SCH ×2 (08:06→21:58)
[2023-02-09] MEDS ORDERED: HYDROMORPHONE HCL 0.5 MG/0.5 ML INJ IV PRN (08:16)
--- NOTE | 2023-02-09 08:20 | P.PN ---
Date of Service: 02/08/23 Had a meeting with the family at approx 1 pm. discussed surgery vs. Hosipice. As he is not improving and cannot tolerate the NG tube he would need surgery. However the healing time would be very difficult. Mr. Holt did not seem to comprehend very well. His is aware. She is suffering from long covid syndrome. Would not be able to take care of him at home. Will have hospice meet with them. Give the family time to consider there options. Will have a follow up meeting with them tomorrow. I have spent 30min on patient care.
--- NOTE | 2023-02-09 08:22 | P.PN ---
Subjective Date of Service: 02/09/23 Primary Care Provider: Anoop Chief Complaint: bowel obstruction Subjective: Worsening (labored breathing) patient is not complainting. However he looks weaker Has labored breathing today Review of Systems 10-point ROS is otherwise unremarkable Physical Examination - Vital Signs Temperature: 97.6 F Blood Pressure: 132/80 Pulse: 107 Respirations: 24 Pulse Ox (%): 96 - Physical Exam General: Alert, In no apparent distress HEENT: Atraumatic, PERRLA, EOMI Neck: Supple, JVD not distended Respiratory: Clear to auscultation bilaterally, Other (labored breathing) Cardiovascular: Regular rate/rhythm, Normal S1 S2 Gastrointestinal: Normal bowel sounds, No tenderness Musculoskeletal: No tenderness Integumentary: No rashes Neurological: Normal speech, Normal tone, Normal affect Lymphatics: No axilla or inguinal lymphadenopathy Assessment And Plan - Current Problems (Diagnosis) (1) Bowel obstruction Current Visit: Yes Status: Acute Plan: will admit the patient. Start him on iv fluids. Order a CT scan. Have the patient seen by Dr. Alvarez. Will order stool studies and C diff studies. If needed we can restart him on Flagyl. 02/08 Patient is weaker. Pulls out his NG tube. have discussed with Dr. Alvarez. Will meet with Spouse and discuss hospice. Qualifiers: Intestinal obstruction type: unspecified Intestinal obstruction extent: unspecified extent Qualified Code(s): K56.609 - Unspecified intestinal obstruction, unspecified as to partial versus complete obstruction (2) Spinal stenosis Current Visit: No Status: Chronic Plan: Patient is stable. Will restart his PT when he is more stable. Qualifiers: Spinal region: lumbar Neurogenic claudication status: unspecified Qualified Code(s): M48.061 - Spinal stenosis, lumbar region without neurogenic claudication (3) Hypertension Current Visit: No Status: Chronic Plan: hold bp meds for now. Qualifiers: Hypertension type: primary hypertension (4) Wound infection Current Visit: Yes Status: Acute Plan: pseudomonas sensitive to meropenemn. Will start him on this (5) End of life care Current Visit: Yes Status: Acute Plan: wlll meet with the family again. Decide weather we want to do surgery or hospice. They will have a meeting with hospice team today. This is to educate the family about what hospice entails. They will make the final decision about what is best for them. Discharge Plan: Home Plan to discharge in: 48 Hours - Code Status/Comfort Care Code Status Assessed: No Physician Review: Patient Assessed, Agree with Above Assessment and Plan Critical Care: No Time Spent Managing PTS Care (In Minutes): 20
--- NOTE | 2023-02-09 10:50 | RAD REPORT ---
EXAM DESCRIPTION: RAD - Abdomen 1 View (KUB) - 02/09/2023 10:41 am CLINICAL HISTORY: Abdomen pain FINDINGS: Nasogastric tube is coiled within the very proximal stomach. The distal aspect of the tube extends cranially into the esophagus. There is marked gastric dilatation. No significant change in the mildly to moderately dilated small bowel which may indicate an obstructi ve
[2023-02-09] MEDS ORDERED: AA 4.25 %/D5W/ELECTROLYTES 2,000 ML, Lipids 20% 250 ML with MULTIVITAMINS INJ 10 ML IV SCH ×3 (17:00)
[2023-02-09] MEDS: ENOXAPARIN 40 MG/0.4 ML SQ SCH (17:14)
[2023-02-10] MEDS: LEVALBUTEROL 0.63 MG/3 ML NEB NEB SCH ×2 (01:45→07:45)
[2023-02-10] MEDS: Meropenem 1,000 MG in NA CHLORIDE 0.9% 100 ML IV SCH ×2 (05:50→11:53)
[2023-02-10] MEDS: INSULIN -REGULAR HUMAN 50 UNIT/0.5 ML ML SQ SCH ×3 (06:00→11:52)
[2023-02-10 07:01] LABS: Absolute Lymphocytes (CBC) 1.4 K/uL (0.7-4.9); Hematocrit 32.9 % (39.6-49.0); Lymphocytes % 14.9 % (15.3-44.8); MCV 74.4 fL (80-100); MPV 9.2 fL (7.6-11.3); RBC Red Blood Cell Count 4.42 M/uL (4.33-5.43)
[2023-02-10 07:20] LABS: Albumin 2.2 g/dL (3.4-5.0); Bilirubin Total 0.3 mg/dL (0.2-1.0); Potassium 3.6 mEq/L (3.5-5.1); Protein, Total 5.7 g/dL (6.4-8.2)
[2023-02-10] MEDS: FAMOTIDINE 20 MG/2 ML VIAL IV SCH (07:46)
[2023-02-10] MEDS: Mupirocin NASAL 2 APPL/1 GM TUBE NAS SCH (07:46)
--- NOTE | 2023-02-10 07:48 | P.PN ---
Date of Service: 02/09/23 I have been informed patient and his have decided to proceed with hospice, and do not want any surgical intervention, will sign off for now, but remain available if patient or family would like to discuss any other surgical options.
[2023-02-10 08:04] LABS: White Blood Cell Scan OK (OK)
[2023-02-10 08:05] LABS: Anisocytosis 1+; Blood Morphology Comment NOTED (NOT SEEN)
[2023-02-10 08:08] LABS: Platelet Estimate ADEQ
--- NOTE | 2023-02-10 08:14 | P.DS ---
Admission Date: 02/03/23 Discharge Date: 02/10/23 Primary Care Provider: Anoop Disposition: HOSPICE-HOME Discharge Condition: FAIR Reason for Admission: bowel obstruction - Problems (1) Bowel obstruction Current Visit: Yes Status: Acute Qualifiers: Intestinal obstruction type: unspecified Intestinal obstruction extent: unspecified extent Qualified Code(s): K56.609 - Unspecified intestinal obstruction, unspecified as to partial versus complete obstruction (2) Spinal stenosis Current Visit: No Status: Chronic Qualifiers: Spinal region: lumbar Neurogenic claudication status: unspecified Qualified Code(s): M48.061 - Spinal stenosis, lumbar region without neurogenic claudication (3) Hypertension Current Visit: No Status: Chronic Qualifiers: Hypertension type: primary hypertension (4) Wound infection Current Visit: Yes Status: Acute (5) End of life care Current Visit: Yes Status: Acute Brief History of Present Illness: 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 He was admitted 2 weeks ago for pneumonia. He was doing well. However after discharge he had a lot of nausea and vomiting. He was readmitted for weakness and vomiting. Was treated with Flagyl. Unfortunately C diff toxin was stopped. The patient was sent to [facility] for PT. However he was having intermittent vomiting. Today he had 2 episodes. We got an abdominal flat plate which showed a possible bowel obstruction. Decided on Direct admission to the hospital. When he got her the patient was tachycardic and looking week. Hospital Course: Patient was admitted for small bowel obstruction. He did not improve with an NG tube. Was continually pulling out. So could not tolerated it. The patient would have needed surgery and most likley would have a iliostemy bag. There was a possible mass. So surgery was not a very good option for an 87 year old. The patient and his were presented with the choice of surgery or hospice. They chose home hospice. Thank you for allowing me to take part in your care Mr Holt I will miss you. Vital Signs/Physical Exam: Temp Pulse Resp BP Pulse Ox 97.3 F 101 H 20 112/82 94 02/10/23 04:00 02/10/23 04:00 02/10/23 04:00 02/10/23 04:00 02/10/23 04:00 General: Alert, In no apparent distress HEENT: Atraumatic, PERRLA, EOMI Neck: Supple, JVD not distended Respiratory: Clear to auscultation bilaterally, Normal air movement Cardiovascular: Regular rate/rhythm, Normal S1 S2 Gastrointestinal: Normal bowel sounds, No tenderness Musculoskeletal: No tenderness Integumentary: No rashes Neurological: Normal speech, Normal tone, Normal affect Lymphatics: No axilla or inguinal lymphadenopathy Laboratory Data at Discharge: WBC 9.60 thou/uL (4.3-10.9) 02/10/23 06:24 Hgb 10.2 g/dL (13.6-17.9) L 02/10/23 06:24 Hct 32.9 % (39.6-49.0) L 02/10/23 06:24 Plt Count 268 thou/uL (152-406) 02/10/23 06:24 Sodium 136 mEq/L (136-145) 02/10/23 06:24 Potassium 3.6 mEq/L (3.5-5.1) 02/10/23 06:24 BUN 30 mg/dL (7-18) H 02/10/23 06:24 Creatinine 0.62 mg/dL (0.70-1.30) L 02/10/23 06:24 Glucose 119 mg/dL (74-106) H 02/10/23 06:24 Total Bilirubin 0.3 mg/dL (0.2-1.0) 02/10/23 06:24 AST 19 U/L (15-37) 02/10/23 06:24 ALT 12 U/L (16-61) L 02/10/23 06:24 Alkaline Phosphatase 69 U/L (45-117) 02/10/23 06:24 Home Medications: Amlodipine [Norvasc*] 5 mg PO DAILY 01/10/23 Tamsulosin [Flomax*] 0.4 mg PO DAILY 01/10/23 Omeprazole 20 mg PO DAILY 90 Days #90 tab 01/27/23 metroNIDAZOLE [Flagyl] 500 mg PO TID 5 Days #15 tab 01/27/23 Acetaminophen [Tylenol Extra Strength] 1 tab PO Q6H PRN 02/03/23 Ondansetron [Zofran] 4 mg PO Q6H PRN 02/03/23 Diet: comfort fo Activity: Fall precautions Physician Review: Patient Assessed, Agree with Above Assessment and Plan Time spent managing pt's care (in minutes): 20
[2023-02-10 08:45] VITALS: BP 162/80; TEMP 97
== END 2023-02-10 12:16 | disposition hospice, home (50) | DRG 389 ==
LOC: ERHOLD 17:17 → 2ND 18:23
PROVIDERS: ADMIT Internal Medicine; ATTEND Internal Medicine
PROC: 0DH673Z Insertion of Infusion Device into Stomach, Via Natural or Artificial Opening (ICD-10-PCS; principal; 2023-02-04)
DX: K56.609 Unspecified intestinal obstruction, unspecified as to partial versus complete obstruction (principal); E44.0 Moderate protein-calorie malnutrition; Z88.0 Allergy status to penicillin; E78.5 Hyperlipidemia, unspecified; I10 Essential (primary) hypertension; E66.9 Obesity, unspecified; Z68.31 Body mass index [BMI] 31.0-31.9, adult; M48.061 Spinal stenosis, lumbar region without neurogenic claudication; R01.1 Cardiac murmur, unspecified; Z51.5 Encounter for palliative care; B96.5 Pseudomonas (aeruginosa) (mallei) (pseudomallei) as the cause of diseases classified elsewhere; L89.152 Pressure ulcer of sacral region, stage 2
CPT/HCPCS: 36415; 70450; 72125; 74018; 74176; 80053; 82947; 84439; 84443; 85025; 87045; 87046; 87070; 87077; 87177; 87186; 87205; 87209; 87324; 89055; 94640; J1170; J1650; J2185; J2543; J3486; J7030; J7042; J7608; J7614; J7799